=== PATIENT | female | born 1950 | race Caucasian/White ===

== ENCOUNTER 2025-03-12 08:56 | Emergency (ER) | payer MEDICARE, OTHER, SELFPAY ==
--- OUTSIDE RECORDS SUMMARY | 2025-03-05 23:59 | XMS_ITS | Continuity of Care Document ---
Author Organization [facility] Address [facility] [address] [place] [address]- Care Team Providers Care School Bus Driver/Custodian Name Role Phone Leonidas Teague Primary Care Physician [phone] Encounter 03/03/25 - 03/05/25 [facility] [address] [facility], [place] [place] [address]- Encounter Diagnosis Cellulitis of left leg(Discharge Diagnosis) - 03/03/25 Attending Physician: Leonidas Teague Encounter Type: Outpatient Allergies, Adverse Reactions, Alerts No Known Allergies Assessment and Plan Extracted from: Title:cellulitis of left lower leg Author:Leonidas Charles Date:03/03/25 1. Cellulitis of left leg (L03.116: Cellulitis of left lower limb) Pt will receive IM rocephin in office today again and this is well tolerated. She will continue her courses of bactrim and doxycycline as prescribed and is encouraged to continue with hydration efforts. S/S of increasing infection are reviewed, otherwise pt may follow up as needed. Ordered: cefTRIAXone, 1 g, Intramuscular, once, (Ordered) 00999 office o/p est low meets or exceeds 20min (Charge), Quantity: 1, Cellulitis of left leg Medications Bactrim DS 800 mg-160 mg oral tablet 1 tab(s) trimethoprim, Oral, bid, x 7 day(s), # 14 tab(s), 0 Refill(s), Type: Acute, [facility], 1 tab(s) Oral bid,x7 day(s), 64, in, 02/28/25 8:57:00 CDT, Height Measured, 140, lb, 02/28/25 8:57:00 CDT, Weight Measured Start Date: 02/28/25 Stop Date: 03/07/25 Status: Ordered Quantity: 14.0 Unit: tab(s) Repeat number: 1 Indications: Cellulitis of left lower limb; doxycycline ( 100 mg ), Oral, bid, 0 Refill(s), Type: Maintenance Start Date: 02/28/25 Status: Ordered Repeat number: 1 Multi Vitamin+ 0 Refill(s), Type: Maintenance Start Date: 02/28/25 Status: Ordered Repeat number: 1 mupirocin 2% topical cream Topical, tid, 0 Refill(s), Type: Maintenance Start Date: 02/28/25 Status: Ordered Repeat number: 1 Ozempic Subcutaneous, 0 Refill(s), Type: Maintenance Start Date: 02/28/25 Status: Ordered Repeat number: 1 Vitamin D3 daily, 0 Refill(s), Type: Maintenance Start Date: 02/28/25 Status: Ordered Repeat number: 1 Problem List Condition Confirmation Course Effective Dates Status Health St atus Informant Skin melanoma Confirmed Active Diagnosis Diagnosis Type Effective Dates Health Status Clinical Service Informant Cellulitis of left leg Discharge Diagnosis 03/03/25 Non-Specified Procedures Procedure Date Related Diagnosis Body Site Status Parathyroid 2012 Completed Jaw 1989 Completed Tubal ligation 1981 Completed Social History Social History Type Response Sex Female Sex Representation Female (finding) Physician Outpatient Note * Leonidas Teague: PERFORM Event Display: General Clinic Note (Physician) Authored Date: [id number] Linh Johnson Address: [address] [place] [address] Home Phone:[phone] Sex:Female :1950 Location:[facility] Date of Service:03/03/2025 Chief Complaint F/U, STILL C/O LEFT LEG AND FOOT PAIN, SWELLING IS BETTER History of Present Illness Pt returns to??clinic for further evaluation of cellulitis of her left lower leg. She was originally seen in another facility and started on a course??of doxycycline??however came her on??February 28??for a second opinion as her leg was swelling and very painful still.??She was advised on that visit??to continue her Doxycycline and Bactrim was added along with?? a dose of IM rocephin. Today she reports her leg is no longer swollne and has returned to its normal skin tone, however she does still have some soreness in her left ankle and just wants to be seen prior to the weekend to make sure she ishealing well. no fevers or other symptoms at this time.?? Review of Systems Constitutional:??no??fever,??no??chills,??no??sweats,??no??weakness Respiratory:??no??shortness of breath,??no??cough Cardiovascular:??no??chest pain Additional ROS info: Except as noted in the above Review of Systems and in the History of Present Illness all other systems have been reviewed and are negative or noncontributory.?? Physical Exam Vitals & Measurements T:??97.7??(Tympanic)?? HR:??83??(Peripheral)?? BP:??126/68?? SpO2:??98%?? HT:??64??in?? WT:??137??lb?? BMI:??23.51?? General:??alert,??no acute distress. Cardiovascular:??regular??rate and rhythm,??normal??peripheral perfusion. Respiratory: Lungs??CTA, respirations??non-labored. Extremities:??no??deformity,??no??trauma. Abrasion on left mckinley is healing well with no swelling and drainage. lower leg has no swelling??, no particular warmth and no TTP at this time.?? Neurological:??oriented??x4, LOC??appropriate for age Assessment/Plan 1.??Cellulitis of left leg (L03.116: Cellulitis of left lower limb) Pt will??receive IM??rocephin in office today again and this is well tolerated. She will continue her courses of bactrim and doxycycline as prescribed and is encouraged to continue with hydration??efforts. S/S??of increasing infection are reviewed, otherwise pt may follow up as needed.?? Ordered: cefTRIAXone, 1 g, Intramuscular, once, (Ordered) 51179 office o/p est low meets or exceeds 20min (Charge), Quantity: 1, Cellulitis of left leg ?? PCP/Referring Provider Primary Care Provider (PCP):?Leonidas Teague ?NPI# [id number] Referring Provider:?No referring provider recorded for selected visit. Problem List/Past Medical History Ongoing Skin melanoma Medications cholecalciferol(Vitamin D3), daily doxycycline, 100 mg, Oral, bid multivitamin(Multi Vitamin+) mupirocin topical(mupirocin 2% topical cream), Topical, tid semaglutide(Ozempic), Subcutaneous sulfamethoxazole-trimethoprim(Bactrim DS 800 mg-160 mg oral tablet), 1 tab(s), Oral, bid Allergies No known allergies Social History Alcohol - Current Tobacco - Denies Tobacco Use Family History Alcohol user: Sister. Cancer..: Mother and Grandmother (M). Osteoporosis: Mother and Grandmother (M). Stroke: Mother. Thyroid disease: Mother. Health Status Family Member(s) Electronically Signed on 03/03/25 10:45 AM Leonidas Teague Patient Care team information Care Team Personnel Name: Leonidas Teague Position: EMR Mid-Level Access (Supervised) Member Role: Primary Care Physician Address: [facility] [place] [address] P: [place]: [place] [address]- [place] [employer]: Family History Name: UnknownRelationship: Mother Condition State Severity Life Cycle Status Age at Onset Cancer.. POSITIVE Osteoporosis POSITIVE Stroke POSITIVE Thyroid disease POSITIVE Name: UnknownRelationship: Sister Condition State Severity Life Cycle Status Age at Onset Alcohol user POSITIVE Name: UnknownRelationship: Grandmother (M) Condition State Severity Life Cycle Status Age at Onset Cancer.. POSITIVE Osteoporosis POSITIVE Insurance Providers Guarantor name: MIL[employer] Health Plan Information #: 1 Payer: [facility] - Insurance Organization Payer Identifier: MILTON Member Number: [id number] Group Number: MILTON Subscriber Identifier: [id number] Relationship to Subscriber: Self Coverage Type: Medicare Coverage Verification Date: NA Telecom: NA Address: NA Health [facility] [address] Information #: 2 Payer: [facility] Retty Payer Identifier: NA Member Number: [id number] Group Number: [id number] Subscriber Identifier: [id number] Relationship to Subscriber: Self Coverage Type: Private Health Insurance Coverage Verification Date: NA Telecom: NA Address: [facility] [address] Information #: 3 Payer: [facility] Ret[employer] Payer Identifier: MILTON Member Number: [id number] Group Number: MILTON Subscriber Identifier: [id number] Relationship to Subscriber: Self Coverage Type: Medicare Coverage Verification Date: NA Telecom: NA Address:
--- OUTSIDE RECORDS SUMMARY | 2025-03-12 09:09 | XMS_ITS | Encounter Summary ---
Author Organization [facility] Address [address] [place]: Epic Prelude [place] [address] Care Team Providers Care Software Engineer Backend Name Role Phone Kev Begum MD Primary Care Provider [phone] Encounter Details Date Type Department Care Team (Late st Contact Info) Description 02/22/2008 Outpatient Historical Johanne French, ANP NO ADDRESS ON FILE Screening for Malignant Neoplasm of the Cervix Social History Tobacco Use Types Packs/Day Years Used Date Smoking Tobacco: Never Alcohol Use Standard Drinks/Week Comments Yes 0.8 (1 standard drink = 0.6 oz p ure alcohol) Comments No Sex and Gender Information Value Date Recorded Sex Assigned at Not on file Legal Sex Female 5: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 Fosamax therapy. Evaluation of bone mineral density. The following absorptiometry data were obtained. The overall technical quality of the study is good. Serial measurement number 4. 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 She hasapproximately 16% less mineral than the mean projected for a young normal, ages 20-40. Shedemonstrates mild osteopenia of the total hip region and normal bone mineral density of the neckregion of the left hip. Impression: Since the previous examination 05/02/2004, bone mineral density appears to have mildly improved in thelumbar spine and left hip. - Dictated By: Santosh Collier M.D. Electronically Signed By: Santosh Collier M.D. Date Signed: 08/30/06 [facility] Procedure Note Provider, Historical - 07/20/2009 DEXA Evaluation of the Lumbar Spine and Left Proximal Femur: Reason for Consultation: Osteopenia. Fosamax therapy. Evaluation of bone mineral density. The following absorptiometry data were obtained. The overall technicalquality of the study is good. Serial measurement number 4. L2 through L4BMD (g/cm2): 1.003Young adult %: 84Adult T-score: -1.6Left Femoral NeckBMD (g/cm2): 0.926Young adult %: 95Adult T-score: -0.4Left Total HipBMD (g/cm2): 0.854Young adult %: 85Adult T-score: -1.2The patient demonstrates moderate osteopenia of the trabecular bone ofher lumbar spine. She hasapproximately 16% less mineral than the mean projected for a youngnormal, ages 20-40. Shedemonstrates mild osteopenia of the total hip region and normal bonemineral density of the neckregion of the left hip. Impression: Since the previous examination 05/02/2004, bone mineral density appears tohave mildly improved in thelumbar spine and left hip. - Dictated By: Santosh Collier M.D. Electronically Signed By: Santosh Collier M.D. Date Signed: 08/30/06 [facility] Kev Begum MD NM ORDERABLES Final Result INTERFACE SYSTEM Refer to clinic/hospital department * PATHOLOGY (02/22/2008 6:53 AM CDT) PATHOLOGY/CY TOLOGY REPORT [facility] [address] [facility] [address] Patient: Castro JOHNSON Accn No: [id number] Collected: 02/22/2008 6:53:00 AM CYTOLOGY SHOE FITTER FINAL REPORT - - WARP TESTER PAP History Specimen Source: None Provided LMP: None Provided Last Pap Date: None Provided Specimen Adequacy No endocervical cells identified. The presence or absence of an endocervical component is indeterminate in this specimen secondary to atrophy causing difficulty in distinguishing parabasilar type cells from squamous metaplastic cells. Diagnosis NEGATIVE FOR INTRAEPITHELIAL LESION OR MALIGNANCY. (Previously noted as Within Normal Limits) Research Scholar KENNETH 02/24/08 Completed by: TERESITA CHRISTY BSCT(ASCP) (Electronically signed by) 02/24/08 Additional Diagnosis Atrophic Smear Comment Routine follow-up is suggested. Important Info About Pap Smears HPV Testing off the Thin Prep vial can be done as a means of further evaluating a Thin Prep Report. For information about ordering the HPV test, phone Cytology at . Treatment or follow-up recommendations (if any) that are considered within this report are based upon general recommendations as contained in 2001 Consensus Guidelines For Cervical Cytological Abnormalities MICAELA: December 23, 2001, and are provided as a general guideline rather than as a specific recommendation. Final decisions about the most appropriate treatment and follow-up should be made on an individualized basis by the treating physician in consultation with his/her patient. INTERFACE SYSTEM 02/22/2008 6:53 AM CDT Johanne French ANP PATHOLOGY/CYTOLOGY ORDERABLES Final Result INTERFACE SYSTEM Refer to clinic/hospital department documented in this encounter Visit Diagnoses Diagnosis Screening for malignant neoplasm of the cervix documented in this encounter Care Teams Software Engineer Backend Relationship Specialty Start Date End Date Kev Begum MD [address] [facility] [address] [place] [id number] PCP - General 08/30/02 documented as of this encounter
--- OUTSIDE RECORDS SUMMARY | 2025-03-12 09:09 | XMS_ITS | Encounter Summary ---
Author Organization [facility] Address [address] [place] [address] Care Team Providers Care Hydrogenation Operator Name Role Phone Kev Begum MD Primary Care Provider [phone] Encounter Details Date Type Department Care Team (Late st Contact Info) Description 02/21/2008 Emergency [facility] Emergency Department [address] [place] [address] Ed, Physician NO ADDRESS ON FILE Social History Tobacco Use Types Packs/Day Years Used Date Smoking Tobacco: Never Alcohol Use Standard Drinks/Week Comments Yes 0.8 (1 standard drink = 0.6 oz p ure alcohol) Comments No Sex and Gender Information Value Date Recorded Sex Assigned at Not on file Legal Sex Female 5: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
--- OUTSIDE RECORDS SUMMARY | 2025-03-12 09:09 | XMS_ITS | Encounter Summary ---
Author Organization [facility] Address [address] [place] [address] Care Team Providers Care Truck Repair Supervisor Name Role Phone Kev Begum MD Primary Care Provider [phone] Encounter Details Date Type Department Care Team (Late st Contact Info) Description 05/02/2004 Outpatient Historical [facility] Beckwith Keegan [address] [place] [address] Kev Begum MD [address] [place] [address] JOINT PAIN-L/LEG (Primary Dx) Social History Tobacco Use Types Packs/Day Years Used Date Smoking Tobacco: Never Assessed Comments Unknown Sex and Gender Information Value Date Recorded Sex Assigned at Not on file Legal Sex Female 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
--- OUTSIDE RECORDS SUMMARY | 2025-03-12 09:09 | XMS_ITS | Clinical Summary ---
Author Organization [facility] Kelvin cespedes Ogle Address [address] [place] [address] Phone Care Team Providers Care Apprentice Jockey Name Role Phone Kev Begum MD Primary Care Provider [phone] Allergies No known active allergies Medications esomeprazole (NexIUM) 40 mg Capsule, Delayed Release(E.C.) Take 1 Capsule (40 mg) by mouth daily before breakfast. 30 Capsule 01/10/20 17 Active multivitamin (DAILY-JAN) tablet Take 1 Tablet by mouth daily. Active SUMAtriptan (IMITREX) 50 mg tablet TAKE 1 TABLET (50 MG) BY MOUTH EVERY 2 HOURS NEEDED FOR HEADACHES MAY REPEAT IN 2 HOURS; MAX DOSE 200MG IN 24 HOURS. 12 Tablet 3 04/15/20 19 Active ondansetron (ZOFRAN) 4 mg Tablet Take 1 Tablet (4 mg) by mouth every 8 hours as needed for Nausea/Emesis. 20 Tablet 08/06/2019 5:40 PM CAREER REPRESENTATIVE 08/06/20 19 Active OTHER Estriol 0.1% Apply 1/2 ml to 1 ml to vagina 3 times weekly 30 mL 5 08/18/20 20 Active OTHER Testosterone cream 1mg 3 times weekly. 30 mL 5 08/18/20 20 Active Vitamin D2 1,250 mcg (50,000 unit) capsule TAKE 1 CAPSULE (50,000 UNITS) BY MOUTH EVERY 30 DAYS. 6 Capsule 12/16/19 21 Active dextroamphetamine -amphetamine (ADDERALL) 20 mg tabletIndications :Attention deficit hyperactivity disorder (ADHD), unspecified ADHD type TAKE ONE TABLET BY MOUTH 2 TIMES DAILY MAX DAILY AMOUNT 40 MG 60 Tablet 01/20/20 21 Active Active Problems Problem Noted Date Diagnosed Date Family history of breast cancer 08/31/2020 Hyperparathyroidism, unspecified 01/21/2020 Osteopenia of multiple sites 04/22/2019 History of migraine 04/22/2019 History of vertebral compression fracture 2018 History of primary hyperparathyroidism 9 S/P parathyroidectomy 04/22/2019 Abnormal finding on GI tract imaging 09/03/2018 Overview (09/03/2018): Mass vs adherent stool in cecum. Personal history of DVT (deep vein thrombosis) 0 04/18/2017 Closed compression fracture of first lumbar vert ebra 01/09/2017 ADHD (attention deficit hyperactivity disorder) 01/21/2014 Carpal tunnel syndrome 08/19/2008 Migraine with aura, without mention of intractable migraine without mention of status migrainosus Personal history of malignant melanoma of skin Resolved Problems Problem Noted Date Diagnosed Date Resolved Date Medication monitoring encounter 01/28/2017 02/06/2017 Acute deep vein thrombosis ( DVT) of distal vein of left lower extremity 01/09/2017 04/21/2018 Colon cancer screening 05/16/201404/15 Macrocytosis 09/12/2008 09/12/2008 Cellulitis 02/22/2008 09/12/2008 Other specified diseases of blood and blood-forming organs(289.89) 09/12/2008 Peptic ulcer, unspecified si te, unspecified as acute or chronic, without mention of hemorrhage, perforation, or obstruction 04/21/2018 Osteoporosis, unspecified Immunizations Immunization Administration Dates Next Due (ADACEL/BOOSTRIX)(10 YR UP) TDAP VACCINE, 0.5ML, IM 03/13/2013 (PNEUMOVAX 23)(50 YRS UP) PN EUMOCOCCAL POLYSACCHARIDE (PPV23) 0.5 ML, IM 04/08/2014 (PREVNAR 13)(6 WKS UP) PNEUM OCOCCAL CONJUGATE (PCV13) 0.5 ML, IM 04/11/2015 (TDVAX)(7 YRS UP) TETANUS AN D DIPHTHERIA TOXOIDS, ADSORBED (2 LF OF TETANUS TOXOID AND 2 LF OF DIPHTHERIA TOXOID), 0.5ML (PF), IM 03/13/2013,08/04/2003 Influenza Seasonal Unspecified Formulation IM Influenza Vaccine Split 3+ Yrs PF IM 09/14/2009 Zoster Vaccine Live SQ 03/25/2015 Family History Medical History Relation Name Comments Hypertension Brother Healthy Daughter Cancer Father Lung Cancer Father Healthy Mother Other Mother hyperparathyroi dism Breast Cancer Paternal Aunt Breast Cancer Paternal Cousin positive re sponse to counselor- see media tab Liver Disease Sister 1 Other Sister 1 alcoholism Other Sister 2 Healthy Son Colon Cancer Neg Hx Ovarian Cancer Neg Hx Relation Name Status Comments Brother Alive Daughter Alive Father Mother Alive Paternal Aunt Paternal Cousin Sister 1 Sister 2 Son Alive Social History Tobacco Use Types Packs/Day Years Used Date Smoking Tobacco: Never Smokeless Tobacco: Never Tobacco Cessation:Counseling Given: Yes Alcohol Use Standard Drinks/Week Comments Yes 4.2 (1 standard drink = 0.6 oz p ure alcohol) Comments No Sex and Gender Information Value Date Recorded Sex Assigned at Not on file Legal Sex Female 5:07 AM CAREER REPRESENTATIVE Gender Identity Not on file Sexual Orientation Not on file Occupation Industry Job Start Date Job End Date Not on file Not on file Not on file Not on file Not on file Not on file Not on file Not on file Last Filed Vital Signs Vital Sign Reading Time Taken Comments Blood Pressure 118/70 08/18/2020 9:23 AM CAREER REPRESENTATIVE Pulse 82 07/25/2020 12:39 PM CAREER REPRESENTATIVE Temperature 36.6 C (97.9 F) 10/02/2019 1:58 PM CAREER REPRESENTATIVE Respiratory Rate 22 04/25/2020 1:05 PM CDT Oxygen Saturation 99% 10/02/2019 1:58 PM CAREER REPRESENTATIVE Inhaled Oxygen Concentration - - Weight 71.2 kg (157 lb) 08/18/2020 9:23 AM CAREER REPRESENTATIVE Height 167.6 cm (5' 6 ) 08/18/2020 9:23 AM CAREER REPRESENTATIVE Body Mass Index 25.34 08/18/2020 9:23 AM CAREER REPRESENTATIVE Plan of Treatment Health Maintenance Due Date Last Done Comments FIT/ DNA Q 3 YEARS (AUTO ORDER) 1967 FIT-DNA Q 3 years 1994 FLEX SIG/CT COLONOGRAPHY Q 5 YEARS (AUTO ORDER) 03/12/2004 03/12/1999 Flex Sig/CT Colonography Q 5 years 03/12/20041998 FIT/FOBT Q 1 YEAR (AUTO ORDER) 04/26/2004 0 04/26/2003, 03/30/2002, 03/24/2001 FIT/FOBT Q 1 year 04/26/2004 04/26/2003, , 03/24/2001 ZOSTER VACCINE (2 of 3) 05/20/2015 03/25/2015 Traditional Medicare (ACO) A nnual Wellness Visit 04/26/2021 04/25/2020, 04/22/2019, 04/18/2017, Additional history exists DTAP/TDAP/TD VACCINES (2 - T d or Tdap) 03/13/2023 03/13/2013, 03/13/2013, 08/04/2003 RSV VACCINE (60+ or ) (1 - 1-dose 75+ series) 2024 INFLUENZA VACCINE (#1) 2025 9, 11/16/2018, 09/14/2009 OSTEOPOROSIS SCREENING 06/28/2025 0, 06/28/2020, 06/02/2018, Additional history exists COLORECTAL CANCER SCREENING (AUTO ORDER) 01/25/2035 01/25/2025, 09/03/2018, 09/03/2018, Additional history exists COLORECTAL SCREENING 01/25/2035 01/25/2025, 09/03/2018, 09/03/2018, Additional history exists Colorectal Cancer Screening (AUTO ORDER) 01/25/2035 Colorectal Cancer Screening 01/25/2035 PNEUMOCOCCAL VACCINE 50+ YEARS Completed 04/11/2015 , 04/08/2014 Procedures Procedure Name Priority Date/Time Associated Diagnosis Comments XR DEXA BONE DENSITY AXIAL 1 OR MORE SITES Routine 06/28/2020 10:52 AM CDT Hyperparathyroidism, unspecified Hypovitaminosis D Exhaustion Localized osteoporosis without current pathological fracture COLONOSCOPY REPORT 09/03/2018 9: 56 AM CAREER REPRESENTATIVE from Last 3 Months or Most Recently Relevant to Health Maintenance Results * XR DEXA BONE DENSITY AXIAL 1 OR MORE SITES (06/28/2020 10:52 AM CDT) Anatomical Region Laterality Modality Nuclear Medicine 06/28/2020 10:5 2 AM CDT Impressions 06/28/2020 7:58 PM CDT IMPRESSION: 1. Compared to previous exam, there has not been statistically significant change in bone mineral density with findings consistent with moderate osteopenia; there is currently moderate risk for fracture with site of lowest density at the total hip. 2. Age matched Z-score of greater than -2.0 does not indicate accelerated bone demineralization. Definitions: T-score > -0.99 = Normal T-score -1.00 to -1.49 = mild osteopenia T-score -1.50 to -1.99 = moderate osteopenia T-score -2.00 to -2.49 = severe osteopenia T-score < -2.50 = osteoporosis N.B. Changes in density of <=0.05 g/cm2 are not statistically significant. RECOMMENDATIONS: Normal: Low risk for fracture - f/u in 2 years Mild/Mod osteopenia: Moderate risk for fracture - f/u in 1 year Severe osteopenia: Moderate/high risk for fracture - f/u in 1 year Osteoporosis: High risk for fracture - f/u in 1 year NOF guidelines recommend consideration of FDA-approved medical therapies in patients with FRAX determined 10-year probabilities of hip/major osteoporosis-related fractures equal or greater than 3%/20% respectively. Consider assessing fracture risk using the FRAX analysis tool for guidance of clinical management available online at www.shef.ac.uk/FRAX/. Enter TripOvation for Select DXA and the Femoral Neck BMD value. Narrative 06/28/2020 7:58 PM CDT Exam: XR DEXA BONE DENSITY AXIAL 1 OR MORE SITES Reason For Exam: See Diagnosis, osteoporosis screening. Diagnosis: Hyperparathyroidism, unspecified; Hypovitaminosis D; Exhaustion; Localized osteoporosis without current pathological fracture Findings: The following absorptiometry data were obtained. The quality of this examination is acceptable with regards to count density, processed images, data display and lack of important artifacts (including but not limited to motion and attenuation artifacts). COMPARISON: 06/02/2018 L1-L4 BMD (g/cm2): 1.090 (Previously 1.030) Adult T-score: -0.7 (Previously -1.3) Adult Z-score: Normal (Previously Normal) Left Femoral Neck BMD (g/cm2): 0.871 (Previously 0.810) Adult T-score: -0.9 (Previously -1.4) Adult Z-score: Normal (Previously Normal) Left Total Hip BMD (g/cm2): 0.789 (Previously 0.764) Adult T-score: -1.8 (Previously -2.0) Adult Z-score: Normal (Previously Normal) Procedure Note Steve Villanueva MD - 06/28/2020 Exam: XR DEXA BONE DENSITY AXIAL 1 OR MORE SITES Reason For Exam: See Diagnosis, osteoporosis screening. Diagnosis: Hyperparathyroidism, unspecified; Hypovitaminosis D; Exhaustion; Localized osteoporosis without current pathological fracture Findings: The following absorptiometry data were obtained. The quality of this examination is acceptable with regards to count density, processed images, data display and lack of important artifacts (including but not limited to motion and attenuation artifacts). COMPARISON: 06/02/2018 L1-L4 BMD (g/cm2): 1.090 (Previously 1.030) Adult T-score: -0.7 (Previously -1.3) Adult Z-score: Normal (Previously Normal) Left Femoral Neck BMD (g/cm2): 0.871 (Previously 0.810) Adult T-score: -0.9 (Previously -1.4) Adult Z-score: Normal (Previously Normal) Left Total Hip BMD (g/cm2): 0.789 (Previously 0.764) Adult T-score: -1.8 (Previously -2.0) Adult Z-score: Normal (Previously Normal) IMPRESSION: 1. Compared to previous exam, there has not been statistically significant change in bone mineral density with findings consistent with moderate osteopenia; there is currently moderate risk for fracture with site of lowest density at the total hip. 2. Age matched Z-score of greater than -2.0 does not indicate accelerated bone demineralization. Definitions: T-score > -0.99 = Normal T-score -1.00 to -1.49 = mild osteopenia T-score -1.50 to -1.99 = moderate osteopenia T-score -2.00 to -2.49 = severe osteopenia T-score < -2.50 = osteoporosis N.B. Changes in density of <=0.05 g/cm2 are not statistically significant. RECOMMENDATIONS: Normal: Low risk for fracture - f/u in 2 years Mild/Mod osteopenia: Moderate risk for fracture - f/u in 1 year Severe osteopenia: Moderate/high risk for fracture - f/u in 1 year Osteoporosis: High risk for fracture - f/u in 1 year NOF guidelines recommend consideration of FDA-approved medical therapies in patients with FRAX determined 10-year probabilities of hip/major osteoporosis-related fractures equal or greater than 3%/20% respectively. Consider assessing fracture risk using the FRAX analysis tool for guidance of clinical management available online at www.shef.ac.uk/FRAX/. Enter TripOvation for Select DXA and the Femoral Neck BMD value. Linda Osborne MD DIAGNOSTIC IMAGING ORDERABLES Fi nal Result * COLONOSCOPY REPORT (09/03/2018 9:56 AM CAREER REPRESENTATIVE) Narrative Procedure Note Brant Durán MD - 09/03/2018 9:55 AM CST [facility] Patient Name: Rody Johnson Procedure Date: 09/03/2018 Date of : 1950 Admit Type: Outpatient Age: 68 Attending MD: Brant Durán , Procedure: Colonoscopy Indications: Abnormal CT of the GI tract Providers: Brant Durán Referring MD: Kev Begum MD Medicines: Midazolam 7 mg IV Complications: No immediate complications. Procedure: After I obtained informed consent, the scope was passed under direct vision. Throughout the procedure, the patient's blood pressure, pulse, and oxygen saturations were monitored continuously. The Colonoscope was introduced through the anus and advanced to the cecum, identified by appendiceal orifice and ileocecal valve. Theterminal ileum could not be entered. The colonoscopy was performed without difficulty. The patient tolerated the procedure well. The quality of the bowel preparation was good. Estimated Blood Loss: Estimated blood loss: none. Findings: Internal hemorrhoids were found during retroflexion. The hemorrhoids were medium-sized. A diffuse area of moderate melanosis was found in the entire colon. The exam was otherwise without abnormality. Impression: - Internal hemorrhoids. - Melanosis in the colon. - The examination was otherwise normal. - No specimens collected. Recommendation: - Repeat colonoscopy is not recommended due to current age (66 years or older) for screening purposes. Brant Durán, 09/03/2018 9:55:27 AM Number of Addenda: 0 Note Initiated On: 09/03/2018 9:24 AM Scope Withdrawal Time 0 hours 7 minutes 3 seconds Scope In: 9:33:22 AM Scope Out: 9:52:44 AM [id number] [place] [address] Brant Durán MD GI PROCEDURE ORDERABLES Edited Result - Final from Last 3 Months or Most Recently Relevant to Health Maintenance Insurance MEDICARE PART A AND B [employer] [place] [employer] (INTERNAL) [facility] [employer] Medicare Part D MEDICARE PART A AND B [employer] [place] Advance Directives For more information, please contact: [phone] Documents on File Type Date Recorded Patient Evidence Technician Expl anation Advance Directive POA 04/25/2020 1:00 PM A dvance Directive POA * Full Code (Latest Code Status on File) Date Activated Date Inactivated Comments 09/03/2018 8:02 AM 09/03/2018 12:21 PM * Full Code Date Activated Date Inactivated Comments 05/16/2014 9:34 AM 05/16/2014 12:03 PM * Full Code Date Activated Date Inactivated Comments 05/16/2014 8:35 AM 05/16/2014 9:34 AM Care Teams Apprentice Jockey Relationship Specialty Start Date End Date Kev Begum MD [address] [address] PCP - General 08/30/02
--- OUTSIDE RECORDS SUMMARY | 2025-03-12 09:09 | XMS_ITS | Encounter Summary ---
Author Organization [facility] Address [address] [place] [address] Care Team Providers Care Supervisor Blast Furnace Name Role Phone Kev Begum MD Primary Care Provider [phone] Encounter Details Date Type Department Care Team (Latest Contact Info) Description 05/02/2004 Outpatient Historical [facility] Kelvin Beckwith [place] [address] [place] [phone] Nik Serna MD NO ADDRESS ON FILE SCREENING MAMM-MAILG NEOPL-OTHER (Primary Dx) Social History Tobacco Use Types Packs/Day Years Used Date Smoking Tobacco: Never Assessed Comments Unknown Sex and Gender Information Value Date Recorded Sex Assigned at Not on file Legal Sex Female 5:07 AM FURNACE CHARGER Gender Identity Not on file Sexual Orientation Not on file documented as of this encounter Plan of Treatment Not on file documented as of this encounter Visit Diagnoses Diagnosis Other screening mammogram- Primary documented in this encounter Care Teams Supervisor Blast Furnace Relationship Specialty Start Date End Date Kev Begum MD [address] [id number] PCP - General 08/30/02 documented as of this encounter
--- OUTSIDE RECORDS SUMMARY | 2025-03-12 09:09 | XMS_ITS | Encounter Summary ---
Author Organization [facility] Address [address] [place] [address] Care Team Providers Care Controller Instructor Name Role Phone Kev Begum MD Primary Care Provider [phone] Encounter Details Date Type Department Care Team (Late st Contact Info) Description 05/02/2004 Outpatient [facility] Beckwith [place] [address] [place] [address] Kev Begum MD [address] [place] [address] OTHER OVARIAN FAILURE (Primary Dx) Social History Tobacco Use Types Packs/Day Years Used Date Smoking Tobacco: Never Assessed Comments Unknown Sex and Gender Information Value Date Recorded Sex Assigned at Not on file Legal Sex Female 5:07 AM RUBBER GOODS TESTER WATER Gender Identity Not on file Sexual Orientation Not on file documented as of this encounter Plan of Treatment Not on file documented as of this encounter Visit Diagnoses Diagnosis Other ovarian failure(256.39)- Primary Other ovarian failure documented in this encounter Care Teams Controller Instructor Relationship Specialty Start Date End Date Kev Begum MD [address] [place] [address] PCP - General 08/30/02 documented as of this encounter
--- OUTSIDE RECORDS SUMMARY | 2025-03-12 09:09 | XMS_ITS | Encounter Summary ---
Author Organization [facility] Address [address] [place] [address] Care Team Providers Care Irrigation Installation Specialist Name Role Phone Kev Begum MD Primary Care Provider [phone] Encounter Details Date Type Department Care Team (Latest Contact Info) Description 08/04/2003 Outpatient Historical [facility] [place] [address] [place] [address] Cash Blair, [address] [place] [address] OPEN WOUND SITE NOS-COMPL (Primary Dx); DOG BITE Social History Tobacco Use Types Packs/Day Years Used Date Smoking Tobacco: Never Assessed Comments Unknown Sex and Gender Information Value Date Recorded Sex Assigned at Not on file Legal Sex Female 5:07 AM MANAGER FRONT Gender Identity Not on file Sexual Orientation Not on file documented as of this encounter Plan of Treatment Not on file documented as of this encounter Visit Diagnoses Diagnosis Open wound(s) (multiple) of unspecified site(s), complicated- Primary Dog bite(E906.0) Dog bite documented in this encounter Care Teams Irrigation Installation Specialist Relationship Specialty Start Date End Date Kev Begum MD [address] [place] [address] PCP - General 08/30/02 documented as of this encounter
--- OUTSIDE RECORDS SUMMARY | 2025-03-12 09:09 | XMS_ITS | Encounter Summary ---
Author Organization [facility] Address [address] [place] [address] Care Team Providers Care Database Marketing Analyst Name Role Phone Kev Begum MD Primary Care Provider [phone] Encounter Details Date Type Department Care Team (Late st Contact Info) Description 08/13/2008 Ancillary Orders [facility] Kelvin Beckwith [place] [address] [place] [address] Kev Begum MD [address] [phone] Other Screening Mammogram Social History Tobacco Use Types Packs/Day Years Used Date Smoking Tobacco: Never Alcohol Use Standard Drinks/Week Comments Yes 0.8 (1 standard drink = 0.6 oz p ure alcohol) Comments No Sex and Gender Information Value Date Recorded Sex Assigned at Not on file Legal Sex Female 5:07 AM TRANSPORT COORDINATOR Gender Identity Not on file Sexual Orientation Not on file documented as of this encounter Plan of Treatment Not on file documented as of this encounter Results * MAMMO SCREENING BILAT (09/12/2008 10:24 AM TRANSPORT COORDINATOR) Anatomical Region Laterality Modality Breast Bilateral Mammography Narrative 09/13/2008 9:53 AM TRANSPORT COORDINATOR Bilateral Mammogram Reason for Exam: Screening Comparison: Comparison is made with the prior exam(s) dated 08.29.05 Findings: Bilateral CC and MLO views were obtained. This examination was reviewed with the aid of a computer-aided detection system(CAD). The breast tissue density is average. No significant new findings since the prior mammogram(s). Procedure Note Eric Sherman MD - 09/13/2008 Bilateral Mammogram Reason for Exam: Screening Comparison: Comparison is made with the prior exam(s) dated 08.29.05 Findings: Bilateral CC and MLO views were obtained. This examination was reviewed with the aid of a computer-aided detectionsystem(CAD). The breast tissue density is average. No significant new findings since the prior mammogram(s). Kev Begum MD MAMMO ORDERABLES Final Result documented in this encounter Visit Diagnoses Diagnosis Other screening mammogram Other screening mammogram documented in this encounter Care Teams Database Marketing Analyst Relationship Specialty Start Date End Date Kev Begum MD [address] [facility] [address] [place] [address] PCP - General 08/30/02 documented as of this encounter
--- OUTSIDE RECORDS SUMMARY | 2025-03-12 09:09 | XMS_ITS | Encounter Summary ---
Author Organization [facility] Address [address] [place] [address] Care Team Providers Care Head Of Research & Insights Name Role Phone Kev Begum MD Primary Care Provider [phone] Encounter Details Date Type Department Care Team (Late st Contact Info) Description 05/02/2004 Outpatient [facility] [place] [address] [place] [address] Kev Begum MD [address] [place] [address] RAYNAUD'S SYNDROME (Primary Dx); ABNORMAL LIVER FUNCTION STUDY; OTHER GENERAL SYMPTOMS; OSTEOPOROSIS NOS Social History Tobacco Use Types Packs/Day Years Used Date Smoking Tobacco: Never Assessed Comments Unknown Sex and Gender Information Value Date Recorded Sex Assigned at Not on file Legal Sex Female 5:07 AM METEOROLOGY TEACHER Gender Identity Not on file Sexual Orientation Not on file documented as of this encounter Plan of Treatment Not on file documented as of this encounter Visit Diagnoses Diagnosis Raynaud's syndrome- Primary Nonspecific abnormal results of liver function study Other general symptoms(780.99) Other general symptoms Osteoporosis, unspecified documented in this encounter Care Teams Head Of Research & Insights Relationship Specialty Start Date End Date Kev Begum MD [address] [place] [address] PCP - General 08/30/02 documented as of this encounter
--- OUTSIDE RECORDS SUMMARY | 2025-03-12 09:09 | XMS_ITS | Encounter Summary ---
Author Organization [facility] Address [address] [place] [address] Care Team Providers Care Cake Decorator Name Role Phone Kev Begum MD Primary Care Provider [phone] Encounter Details Date Type Department Care Team (Late st Contact Info) Description 05/02/2004 Outpatient [facility] [address] [place] [address] Kev Begum MD [address] [place] [phone] Social History Tobacco Use Types Packs/Day Years Used Date Smoking Tobacco: Never Assessed Comments Unknown Sex and Gender Information Value Date Recorded Sex Assigned at Not on file Legal Sex Female 5:07 AM FIELD SALES 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
--- OUTSIDE RECORDS SUMMARY | 2025-03-12 09:09 | XMS_ITS | Encounter Summary ---
Author Organization [facility] Address [address] [place] [address] Care Team Providers Care Information Management Officer Name Role Phone Kev Begum MD Primary Care Provider Encounter Details Date Type Department Care Team (Late st Contact Info) Description 05/02/2004 Outpatient Historical [facility] Kelvin Beckwith Keegan [address] [place] [address] Kev Begum MD [address] [place] [address] SCREENING MAMM-MALIG NEOPL-HI RISK (Primary Dx) Social History Tobacco Use Types Packs/Day Years Used Date Smoking Tobacco: Never Assessed Comments Unknown Sex and Gender Information Value Date Recorded Sex Assigned at Not on file Legal Sex Female 5:07 AM PEOPLESOFT FSCM DEVELOPER Gender Identity Not on file Sexual Orientation Not on file documented as of this encounter Plan of Treatment Not on file documented as of this encounter Visit Diagnoses Diagnosis Screening mammogram for high-risk patient- Primary documented in this encounter Care Teams Information Management Officer Relationship Specialty Start Date End Date Kev Begum MD [address] [place] [address] PCP - General 08/30/02 documented as of this encounter
--- OUTSIDE RECORDS SUMMARY | 2025-03-12 09:10 | XMS_ITS | Encounter Summary ---
Author Organization [facility] Address [address] [place] [address] Care Team Providers Care Front End Specialist Name Role Phone Kev Begum MD Primary Care Provider [phone] Encounter Details Date Type Department Care Team (Latest Contact Info) Description 01/29/2000 Outpatient Historical [facility] Podiatry-Kelvin Batesnn Keegan [address] [place] [address] Los Humphreys, DPM NO ADDRESS ON FILE Corns and callosities (Primary Dx); Unspecified erythematous condition; Dermatophytosis of nail Social History Tobacco Use Types Packs/Day Years Used Date Smoking Tobacco: Never Assessed Comments Unknown Sex and Gender Information Value Date Recorded Sex Assigned at Not on file Legal Sex Female 5:07 AM TRANSFORMER 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
--- OUTSIDE RECORDS SUMMARY | 2025-03-12 09:10 | XMS_ITS | Encounter Summary ---
Author Organization [facility] Address [address] [place] [address] Care Team Providers Care General Doc Name Role Phone Kev Begum MD Primary Care Provider [phone] Encounter Details Date Type Department Care Team (Latest Contact Info) Description 08/14/2005 Outpatient Historical [facility] Imaging Services [address] [place] [address] Orville Brown MD [address] [facility] [address] [place] [address] PAIN IN LIMB (Primary Dx) Social History Tobacco Use Types Packs/Day Years Used Date Smoking Tobacco: Never Assessed Comments Unknown Sex and Gender Information Value Date Recorded Sex Assigned at Not on file Legal Sex Female 5:07 AM MANUFACTURING RECRUITER Gender Identity Not on file Sexual Orientation Not on file documented as of this encounter Plan of Treatment Not on file documented as of this encounter Visit Diagnoses Diagnosis Pain in limb- Primary documented in this encounter Care Teams General Doc Relationship Specialty Start Date End Date Kev Begum MD [address] [place] [address] PCP - General 08/30/02 documented as of this encounter
--- OUTSIDE RECORDS SUMMARY | 2025-03-12 09:10 | XMS_ITS | Encounter Summary ---
Author Organization [facility] Address [address] [place] [address] Care Team Providers Care Seaport Planning Manager Name Role Phone Kev Begum MD Primary Care Provider [phone] Encounter Details Date Type Department Care Team (Latest Contact Info) Description 06/10/1998 Outpatient Historical [facility] Medicine [address] [place] [address] Orville Brown MD [address] [facility] [address] [place] [address] Sprain of foot, unspecified site (Primary Dx) Social History Tobacco Use Types Packs/Day Years Used Date Smoking Tobacco: Never Assessed Comments Unknown Sex and Gender Information Value Date Recorded Sex Assigned at Not on file Legal Sex Female 5:07 AM SHERIFFS DETECTIVE Gender Identity Not on file Sexual Orientation Not on file documented as of this encounter Plan of Treatment Not on file documented as of this encounter Visit Diagnoses Diagnosis Sprain of foot, unspecified site- Primary documented in this encounter Care Teams Seaport Planning Manager Relationship Specialty Start Date End Date Kev Begum MD [address] [facility] [address] [place] [address] PCP - General 08/30/02 documented as of this encounter
--- OUTSIDE RECORDS SUMMARY | 2025-03-12 09:10 | XMS_ITS | Encounter Summary ---
Author Organization [facility] Address [address] [place] [address] Care Team Providers Care Daytime Babysitter Name Role Phone Kev Begum MD Primary Care Provider Encounter Details Date Type Department Care Team (Latest Contact Info) Description 11/29/1999 Outpatient Historical [facility] OBGYN-Warren Bibb Isabela [address] [place] [address] Sonali Whitehead MD [address] [facility] [place] [address] Postmenopausal bleeding (Primary Dx); Vaginitis and vulvovaginitis, unspecified Social History Tobacco Use Types Packs/Day Years Used Date Smoking Tobacco: Never Assessed Comments Unknown Sex and Gender Information Value Date Recorded Sex Assigned at Not on file Legal Sex Female 5:07 AM PAD EXTRACTOR TENDER Gender Identity Not on file Sexual Orientation Not on file documented as of this encounter Plan of Treatment Not on file documented as of this encounter Visit Diagnoses Diagnosis Postmenopausal bleeding- Primary Vaginitis and vulvovaginitis, unspecified documented in this encounter Care Teams Daytime Babysitter Relationship Specialty Start Date End Date Kev Begum MD [address] [place] [address] PCP - General 08/30/02 documented as of this encounter
--- OUTSIDE RECORDS SUMMARY | 2025-03-12 09:10 | XMS_ITS | Encounter Summary ---
Author Organization [facility] Address [address] [place] [address] Care Team Providers Care Mini Bar Attendant Name Role Phone Kev Begum MD Primary Care Provider [phone] Encounter Details Date Type Department Care Team (Late st Contact Info) Description 10/08/2005 Outpatient [facility] Int [facility] [place] [address] [place] [address] Kev Begum MD [address] [place] [address] FOLLOW-UP EXAM NOS (Primary Dx) Social History Tobacco Use Types Packs/Day Years Used Date Smoking Tobacco: Never Assessed Comments Unknown Sex and Gender Information Value Date Recorded Sex Assigned at Not on file Legal Sex Female 5:07 AM INSULATION CUPOLA OPERATOR Gender Identity Not on file Sexual Orientation Not on file documented as of this encounter Plan of Treatment Not on file documented as of this encounter Visit Diagnoses Diagnosis Unspecified follow-up examination- Primary documented in this encounter Care Teams Mini Bar Attendant Relationship Specialty Start Date End Date Kev Begum MD [address] [place] [address] PCP - General 08/30/02 documented as of this encounter
--- OUTSIDE RECORDS SUMMARY | 2025-03-12 09:10 | XMS_ITS | Encounter Summary ---
Author Organization [facility] Address [address] [place] [address] Care Team Providers Care Vending Machine Technician Name Role Phone Kev Begum MD Primary Care Provider Encounter Details Date Type Department Care Team (Latest Contact Info) Description 02/26/2005 Outpatient Historical [facility] Imaging Services-Warren Tang Keegan [address] [place] [address] Los Humphreys, DPM NO ADDRESS ON FILE CALCANEAL SPUR (Primary Dx); BUNION Social History Tobacco Use Types Packs/Day Years Used Date Smoking Tobacco: Never Assessed Comments Unknown Sex and Gender Information Value Date Recorded Sex Assigned at Not on file Legal Sex Female 5:07 AM LOKIE ENGINEER Gender Identity Not on file Sexual Orientation Not on file documented as of this encounter Plan of Treatment Not on file documented as of this encounter Visit Diagnoses Diagnosis Calcaneal spur- Primary Bunion documented in this encounter Care Teams Vending Machine Technician Relationship Specialty Start Date End Date Kev Begum MD [address] [place] [address] PCP - General 08/30/02 documented as of this encounter
--- OUTSIDE RECORDS SUMMARY | 2025-03-12 09:10 | XMS_ITS | Encounter Summary ---
Author Organization [facility] Address [address] [place] [address] Care Team Providers Care Granite Countertop Installer Name Role Phone Kev Begum MD Primary Care Provider [phone] Encounter Details Date Type Department Care Team (Late st Contact Info) Description 03/06/1998 Outpatient [facility] Int [facility] [address] [place] [address] Kev Begum MD [address] [place] [address] Routine medical exam (Primary Dx) Social History Tobacco Use Types Packs/Day Years Used Date Smoking Tobacco: Never Assessed Comments Unknown Sex and Gender Information Value Date Recorded Sex Assigned at Not on file Legal Sex Female 5:07 AM HAULAGE ENGINE OPERATOR Gender Identity Not on file Sexual Orientation Not on file documented as of this encounter Plan of Treatment Not on file documented as of this encounter Visit Diagnoses Diagnosis Routine medical exam- Primary Routine general medical examination at a health care facility documented in this encounter Care Teams Granite Countertop Installer Relationship Specialty Start Date End Date Kev Begum MD [address] [place] [address] PCP - General 08/30/02 documented as of this encounter
--- OUTSIDE RECORDS SUMMARY | 2025-03-12 09:10 | XMS_ITS | Encounter Summary ---
Author Organization [facility] Address [address] [place] [address] Care Team Providers Care Lead Software Qa Engineer Name Role Phone Kev Begum MD Primary Care Provider [phone] Encounter Details Date Type Department Care Team (Latest Contact Info) Description 09/30/1997 Outpatient [facility] Podiatry[facility] Keegan [address] [place] [address] Los Humphreys, DPM NO ADDRESS ON FILE Dermatophytosis of nail (Primary Dx) Social History Tobacco Use Types Packs/Day Years Used Date Smoking Tobacco: Never Assessed Comments Unknown Sex and Gender Information Value Date Recorded Sex Assigned at Not on file Legal Sex Female 5:07 AM BAND INSTRUMENT REPAIRER Gender Identity Not on file Sexual Orientation Not on file documented as of this encounter Plan of Treatment Not on file documented as of this encounter Visit Diagnoses Diagnosis Dermatophytosis of nail- Primary documented in this encounter Care Teams Lead Software Qa Engineer Relationship Specialty Start Date End Date Kev Begum MD [address] [place] [address] PCP - General 08/30/02 documented as of this encounter
--- OUTSIDE RECORDS SUMMARY | 2025-03-12 09:10 | XMS_ITS | Encounter Summary ---
Author Organization [facility] Address [address] [place] [address] Care Team Providers Care Demolition Hammer Operator Name Role Phone Kev Begum MD Primary Care Provider Encounter Details Date Type Department Care Team (Late st Contact Info) Description 05/09/2020 Ancillary Orders [facility] [address] [place] [address] Kev Begum MD [address] [place] [address] Social History Tobacco Use Types Packs/Day Years Used Date Smoking Tobacco: Never Smokeless Tobacco: Never Alcohol Use Standard Drinks/Week Comments Yes 4.2 (1 standard drink = 0.6 oz p ure alcohol) Comments No Sex and Gender Information Value Date Recorded Sex Assigned at Not on file Legal Sex Female 5:07 AM HOSPITAL ACCOUNT MANAGER Gender Identity Not on file Sexual Orientation Not on file Occupation Industry Job Start Date Job End Date Not on file Not on file Not on file Not on file Not on file Not on file Not on file Not on file COVID-19 Exposure Response Date Recorded In the last month, have you been in contact with someone who was confirmed or suspected to have Coronavirus / COVID-19? Yes 05/09/2020 11:06 AM CDT documented as of this encounter Plan of Treatment Not on file documented as of this encounter Visit Diagnoses Not on filedocumented in this encounter Care Teams Demolition Hammer Operator Relationship Specialty Start Date End Date Kev Begum MD [address] [facility] [address] [place] [address] PCP - General 08/30/02 documented as of this encounter
--- OUTSIDE RECORDS SUMMARY | 2025-03-12 09:10 | XMS_ITS | Encounter Summary ---
Author Organization [facility] Address [address] [place] [address] Care Team Providers Care Pick Up Truck Driver Name Role Phone Kev Begum MD Primary Care Provider [phone] Encounter Details Date Type Department Care Team (Late st Contact Info) Description 08/29/2005 Outpatient [facility] [address] [place] [address] Kev Begum MD [address] [place] [address] Social History Tobacco Use Types Packs/Day Years Used Date Smoking Tobacco: Never Assessed Comments Unknown Sex and Gender Information Value Date Recorded Sex Assigned at Not on file Legal Sex Female 5:07 AM PROPAGATOR Gender Identity Not on file Sexual Orientation Not on file documented as of this encounter Plan of Treatment Not on file documented as of this encounter Visit Diagnoses Not on filedocumented in this encounter Care Teams Pick Up Truck Driver Relationship Specialty Start Date End Date Kev Begum MD [address] [place] [address] PCP - General 08/30/02 documented as of this encounter
--- OUTSIDE RECORDS SUMMARY | 2025-03-12 09:10 | XMS_ITS | Encounter Summary ---
Author Organization [facility] Address [address] [place] [address] Care Team Providers Care Business Area Director Name Role Phone Kev Begum MD Primary Care Provider [phone] Encounter Details Date Type Department Care Team (Latest Contact Info) Description 03/10/2006 Outpatient [facility] [address] [place] [address] Kev Begum MD [address] [place] [address] Unspecified ehrlichiosis (Primary Dx); Fever Social History Tobacco Use Types Packs/Day Years Used Date Smoking Tobacco: Never Assessed Comments Unknown Sex and Gender Information Value Date Recorded Sex Assigned at Not on file Legal Sex Female 5:07 AM PHLEBOTOMY SPECIALIST Gender Identity Not on file Sexual Orientation Not on file documented as of this encounter Plan of Treatment Not on file documented as of this encounter Visit Diagnoses Diagnosis Unspecified ehrlichiosis- Primary Ehrlichiosis, unspecified Fever and other physiologic disturbances of temperature regulation documented in this encounter Care Teams Business Area Director Relationship Specialty Start Date End Date Kev Begum MD [address] [place] [address] PCP - General 08/30/02 documented as of this encounter
--- OUTSIDE RECORDS SUMMARY | 2025-03-12 09:10 | XMS_ITS | Encounter Summary ---
Author Organization [facility] Address [address] [place] [address] Care Team Providers Care International Account Manager Name Role Phone Kev Begum MD Primary Care Provider [phone] Encounter Details Date Type Department Care Team (Latest Contact Info) Description 06/07/2004 Outpatient Historical [facility]- [place] [address] [facility] [facility] [address] [place] [address] Brant Durán MD [address] [place] [address] SCREENING MAL NEOP-COLON (Primary Dx); INT HEMORRHOID W/O COMPL Social History Tobacco Use Types Packs/Day Years Used Date Smoking Tobacco: Never Assessed Comments Unknown Sex and Gender Information Value Date Recorded Sex Assigned at Not on file Legal Sex Female 5:07 AM UPHOLSTERY BUNDLER Gender Identity Not on file Sexual Orientation Not on file documented as of this encounter Plan of Treatment Not on file documented as of this encounter Visit Diagnoses Diagnosis Special screening for malignant neoplasms, colon- Primary Internal hemorrhoids without mention of complication documented in this encounter Care Teams International Account Manager Relationship Specialty Start Date End Date Kev Begum MD [address] [place] [address] PCP - General 08/30/02 documented as of this encounter
--- OUTSIDE RECORDS SUMMARY | 2025-03-12 09:10 | XMS_ITS | Encounter Summary ---
Author Organization [facility] Address [address] [place] [address] Care Team Providers Care State Manager Name Role Phone Kev Begum MD Primary Care Provider [phone] Encounter Details Date Type Department Care Team (Latest Contact Info) Description 01/23/1999 Outpatient Historical [facility] Brant Durán MD [address] [place] [address] Abdominal pain, unspecified site (Primary Dx) Social History Tobacco Use Types Packs/Day Years Used Date Smoking Tobacco: Never Assessed Comments Unknown Sex and Gender Information Value Date Recorded Sex Assigned at Not on file Legal Sex Female 5:07 AM SEAL SKINNER Gender Identity Not on file Sexual Orientation Not on file documented as of this encounter Plan of Treatment Not on file documented as of this encounter Visit Diagnoses Diagnosis Abdominal pain, unspecified site- Primary documented in this encounter Care Teams State Manager Relationship Specialty Start Date End Date Kev Begum MD [address] [facility] [address] [place] [address] PCP - General 08/30/02 documented as of this encounter
--- OUTSIDE RECORDS SUMMARY | 2025-03-12 09:10 | XMS_ITS | Encounter Summary ---
Author Organization [facility] Address [address] [place] [address] Care Team Providers Care Gang Sawyer Name Role Phone Kev Begum MD Primary Care Provider [phone] Encounter Details Date Type Department Care Team (Latest Contact Info) Description 05/10/2004 Outpatient Historical [facility]- [address] [place] [address] Orville Brown MD [address] [facility] [address] [place] [address] JOINT PAIN-L/LEG (Primary Dx) Social History Tobacco Use Types Packs/Day Years Used Date Smoking Tobacco: Never Assessed Comments Unknown Sex and Gender Information Value Date Recorded Sex Assigned at Not on file Legal Sex Female 5:07 AM ASSISTANT REFINERY OPERATOR Gender Identity Not on file Sexual Orientation Not on file documented as of this encounter Plan of Treatment Not on file documented as of this encounter Visit Diagnoses Diagnosis Pain in joint, lower leg- Primary documented in this encounter Care Teams Gang Sawyer Relationship Specialty Start Date End Date Kev Begum MD [address] [facility] [address] [place] [address] PCP - General 08/30/02 documented as of this encounter
--- OUTSIDE RECORDS SUMMARY | 2025-03-12 09:10 | XMS_ITS | Encounter Summary ---
Author Organization [facility] Address [address] [place] [address] Care Team Providers Care Pocketed Spring Assembler Name Role Phone Kev Begum MD Primary Care Provider [phone] Encounter Details Date Type Department Care Team (Latest Contact Info) Description 08/13/2005 Outpatient Historical [facility] Orthopedics- [address] [place] [address] Orville Brown MD [address] [facility] [address] [place] [address] JOINT PAIN-ANKLE (Primary Dx) Social History Tobacco Use Types Packs/Day Years Used Date Smoking Tobacco: Never Assessed Comments Unknown Sex and Gender Information Value Date Recorded Sex Assigned at Not on file Legal Sex Female 5:07 AM COASTAL TUG MATE Gender Identity Not on file Sexual Orientation Not on file documented as of this encounter Plan of Treatment Not on file documented as of this encounter Visit Diagnoses Diagnosis Pain in joint, ankle and foot- Primary documented in this encounter Care Teams Pocketed Spring Assembler Relationship Specialty Start Date End Date Kev Begum MD [address] [facility] [address] [place] [address] PCP - General 08/30/02 documented as of this encounter
--- OUTSIDE RECORDS SUMMARY | 2025-03-12 09:10 | XMS_ITS | Encounter Summary ---
Author Organization [facility] Address [address] [place] [address] Care Team Providers Care Associate Principal Name Role Phone Kev Begum MD Primary Care Provider [phone] Encounter Details Date Type Department Care Team (Late st Contact Info) Description 01/19/1998 Outpatient Historical [facility] Tang Keegan [address] [place] [address] Adelaide Ramos MD NO ADDRESS ON FILE Screening mammogram for high-risk patient (Primary Dx) Social History Tobacco Use Types Packs/Day Years Used Date Smoking Tobacco: Never Assessed Comments Unknown Sex and Gender Information Value Date Recorded Sex Assigned at Not on file Legal Sex Female 5:07 AM AD OPERATIONS INTERN Gender Identity Not on file Sexual Orientation Not on file documented as of this encounter Plan of Treatment Not on file documented as of this encounter Visit Diagnoses Diagnosis Screening mammogram for high-risk patient- Primary documented in this encounter Care Teams Associate Principal Relationship Specialty Start Date End Date Kev Begum MD [address] [facility] [address] [place] [address] PCP - General 08/30/02 documented as of this encounter
--- OUTSIDE RECORDS SUMMARY | 2025-03-12 09:10 | XMS_ITS | Encounter Summary ---
Author Organization [facility] Address [address] [place] [address] Care Team Providers Care Heel Seat Fitter Name Role Phone Kev Begum MD Primary Care Provider [phone] Encounter Details Date Type Department Care Team (Latest Contact Info) Description 09/02/1997 Outpatient [facility] [address] [place] [address] Los Humphreys DPM NO ADDRESS ON FILE Other hammer toe (acquired) (Primary Dx) Social History Tobacco Use Types Packs/Day Years Used Date Smoking Tobacco: Never Assessed Comments Unknown Sex and Gender Information Value Date Recorded Sex Assigned at Not on file Legal Sex Female 5:07 AM FLEET ASSISTANT Gender Identity Not on file Sexual Orientation Not on file documented as of this encounter Plan of Treatment Not on file documented as of this encounter Visit Diagnoses Diagnosis Other hammer toe (acquired)- Primary documented in this encounter Care Teams Heel Seat Fitter Relationship Specialty Start Date End Date Kev Begum MD [address] [place] [address] PCP - General 08/30/02 documented as of this encounter
--- OUTSIDE RECORDS SUMMARY | 2025-03-12 09:10 | XMS_ITS | Encounter Summary ---
Author Organization [facility] Address [address] [place] [address] Care Team Providers Care Health Information Provider Name Role Phone Kev Begum MD Primary Care Provider [phone] Encounter Details Date Type Department Care Team (Latest Contact Info) Description 06/07/2004 Outpatient Historical [facility] [place] [address] [facility] [address] [place] [address] Brant Durán MD [address] [place] [address] SCREENING MAL NEOP-COLON (Primary Dx) Social History Tobacco Use Types Packs/Day Years Used Date Smoking Tobacco: Never Assessed Comments Unknown Sex and Gender Information Value Date Recorded Sex Assigned at Not on file Legal Sex Female 5:07 AM SUPPLY TEACHER Gender Identity Not on file Sexual Orientation Not on file documented as of this encounter Plan of Treatment Not on file documented as of this encounter Visit Diagnoses Diagnosis Special screening for malignant neoplasms, colon- Primary documented in this encounter Care Teams Health Information Provider Relationship Specialty Start Date End Date Kev Begum MD [address] [place] [address] PCP - General 08/30/02 documented as of this encounter
--- OUTSIDE RECORDS SUMMARY | 2025-03-12 09:10 | XMS_ITS | Encounter Summary ---
Author Organization [facility] Address [address] [place] [address] Care Team Providers Care Stone Setter Metal Optical Frames Name Role Phone Kev Begum MD Primary Care Provider [phone] Encounter Details Date Type Department Care Team (Late st Contact Info) Description 03/07/1999 Outpatient Historical [facility] Int [facility] [address] [place] [address] Kev Begum MD [address] [place] [address] Chronic gastric ulcer without mention of hemorrhage, perforation, without mention of obstruction (Primary Dx) Social History Tobacco Use Types Packs/Day Years Used Date Smoking Tobacco: Never Assessed Comments Unknown Sex and Gender Information Value Date Recorded Sex Assigned at Not on file Legal Sex Female 5:07 AM CAROUSEL OPERATOR Gender Identity Not on file Sexual Orientation Not on file documented as of this encounter Plan of Treatment Not on file documented as of this encounter Visit Diagnoses Diagnosis Chronic gastric ulcer without mention of hemorrhage, perforation, without mention of obstruction- Primary documented in this encounter Care Teams Stone Setter Metal Optical Frames Relationship Specialty Start Date End Date Kev Begum MD [address] [place] [address] PCP - General 08/30/02 documented as of this encounter
--- OUTSIDE RECORDS SUMMARY | 2025-03-12 09:10 | XMS_ITS | Encounter Summary ---
Author Organization [facility] Address [address] [place] [address] Care Team Providers Care Draw Tender Name Role Phone Kev Begum MD Primary Care Provider [phone] Encounter Details Date Type Department Care Team (Latest Contact Info) Description 12/05/1998 Outpatient Historical [facility] Brant Durán MD [address] [place] [address] Acute gastric ulcer without mention of hemorrhage, perforation, or obstruction (Primary Dx) Social History Tobacco Use Types Packs/Day Years Used Date Smoking Tobacco: Never Assessed Comments Unknown Sex and Gender Information Value Date Recorded Sex Assigned at Not on file Legal Sex Female 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
--- OUTSIDE RECORDS SUMMARY | 2025-03-12 09:10 | XMS_ITS | Encounter Summary ---
Author Organization [facility] Address [address] [place] [address] Care Team Providers Care Oil Pumper Name Role Phone Kev Begum MD Primary Care Provider [phone] Encounter Details Date Type Department Care Team (Latest Contact Info) Description 12/25/1998 Outpatient Historical [facility] Brant Durán MD [address] [place] [address] Gastric ulcer, unspecified as acute or chronic, without mention of hemorrhage, perforation, or obstruction (Primary Dx) Social History Tobacco Use Types Packs/Day Years Used Date Smoking Tobacco: Never Assessed Comments Unknown Sex and Gender Information Value Date Recorded Sex Assigned at Not on file Legal Sex Female 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
--- OUTSIDE RECORDS SUMMARY | 2025-03-12 09:10 | XMS_ITS | Encounter Summary ---
Author Organization [facility] Address [address] [place] [address] Care Team Providers Care Improvement Manager Name Role Phone Kev Begum MD Primary Care Provider [phone] Encounter Details Date Type Department Care Team (Late st Contact Info) Description 03/24/2000 Outpatient [facility] Int [facility] [address] [place] [address] Kev Begum MD [address] [place] [address] Other blood disease (Primary Dx); Gastric ulcer, unspecified as acute or chronic, without mention of hemorrhage, perforation, or obstruction; Palpitations Social History Tobacco Use Types Packs/Day Years Used Date Smoking Tobacco: Never Assessed Comments Unknown Sex and Gender Information Value Date Recorded Sex Assigned at Not on file Legal Sex Female 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 Gender Identity Not on file Sexual Orientation Not on file documented as of this encounter Plan of Treatment Not on file documented as of this encounter Visit Diagnoses Diagnosis Other blood disease- Primary Other specified diseases of blood and blood-forming organs Gastric ulcer, unspecified as acute or chronic, without mention of hemorrhage, perforation, or obstruction Palpitations documented in this encounter Care Teams Improvement Manager Relationship Specialty Start Date End Date Kev Begum MD [address] [place] [address] PCP - General 08/30/02 documented as of this encounter
--- OUTSIDE RECORDS SUMMARY | 2025-03-12 09:10 | XMS_ITS | Encounter Summary ---
Author Organization [facility] Address [address] [place] [address] Care Team Providers Care Checker/Stocker Name Role Phone Kev Begum MD Primary Care Provider [phone] Reason for Referral * Outpatient Services (Routine) - Closed Specialty Diagnoses / Procedures Referred By Contac t Referred To Contact Diagnoses Other screening mammogram Procedures MAMMO DIGITAL SCREEN BILAT Kev Begum MD [address] [employer] [address] Phone: tel: fax: [facility] Pre-Registration [place] CALL TO MAKE APPOINTMENT ONLY [address] [place] [address] Phone: tel: fax: Referral ID Status Reason Start Date Expiration Date Visits Re quested Visits Authorized [id number] Closed 01/03/2012 01/02/2013 1 1 Encounter Details Date Type Department Care Team (Late st Contact Info) Description 01/03/2012 Ancillary Orders [facility] Pre-Registration [place] CALL TO MAKE APPOINTMENT ONLY [address] [place] [address] Kev Begum MD [address] [facility] [address] [place] [address] Other screening mammogram Social History Tobacco Use Types Packs/Day Years Used Date Smoking Tobacco: Never Smokeless Tobacco: Never Alcohol Use Standard Drinks/Week Comments Yes 4.2 (1 standard drink = 0.6 oz p ure alcohol) Comments No Sex and Gender Information Value Date Recorded Sex Assigned at Not on file Legal Sex Female 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 Findings: Bilateral CC and MLO views were obtained. This examination was reviewed with the aid of a computer-aided detection system(CAD). The breast tissue density is heterogeneously dense. No significant new findings since the prior mammogram(s). Procedure Note Eleanor Quintero MD - 01/08/2012 Bilateral Mammogram Reason for Exam: Screening Comparison: Comparison is made with multiple prior exams, the most recentdated 09/12/2008. Findings: Bilateral CC and MLO views were obtained. This examination was reviewed with the aid of a computer-aided detectionsystem(CAD). The breast tissue density is heterogeneously dense. No significant new findings since the prior mammogram(s). Kev Begum MD MAMMO ORDERABLES Final Result documented in this encounter Visit Diagnoses Diagnosis Other screening mammogram Other screening mammogram documented in this encounter Care Teams Checker/Stocker Relationship Specialty Start Date End Date Kev Begum MD [address] [phone] PCP - General 08/30/02 documented as of this encounter
--- OUTSIDE RECORDS SUMMARY | 2025-03-12 09:10 | XMS_ITS | Encounter Summary ---
Author Organization [facility] Address [address] [place] [address] Care Team Providers Care Filter Press Pumper Name Role Phone Kev Begum MD Primary Care Provider [phone] Encounter Details Date Type Department Care Team (Latest Contact Info) Description 08/01/2005 Outpatient Historical [facility] [address] [place] [address] Los Humphreys DPM NO ADDRESS ON FILE JOINT PAIN-ANKLE (Primary Dx) Social History Tobacco Use Types Packs/Day Years Used Date Smoking Tobacco: Never Assessed Comments Unknown Sex and Gender Information Value Date Recorded Sex Assigned at Not on file Legal Sex Female 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
--- OUTSIDE RECORDS SUMMARY | 2025-03-12 09:10 | XMS_ITS | Encounter Summary ---
Author Organization [facility] Address [address] [place] [address] Care Team Providers Care Resourcing Advisor Name Role Phone Kev Begum MD Primary Care Provider [phone] Encounter Details Date Type Department Care Team (Latest Contact Info) Description 08/01/2005 Outpatient [facility] [place] [address] [place] [address] Los Humphreys DPM NO ADDRESS ON FILE STRESS FRACTURE NEC (Primary Dx); DIFFICULTY IN WALKING Social History Tobacco Use Types Packs/Day Years Used Date Smoking Tobacco: Never Assessed Comments Unknown Sex and Gender Information Value Date Recorded Sex Assigned at Not on file Legal Sex Female 5: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
--- OUTSIDE RECORDS SUMMARY | 2025-03-12 09:10 | XMS_ITS | Encounter Summary ---
Author Organization [facility] Address [address] [place] [address] Care Team Providers Care Brakeshoe Repairer Name Role Phone Kev Begum MD Primary Care Provider [phone] Encounter Details Date Type Department Care Team (Late st Contact Info) Description 04/11/2006 Outpatient [facility] Int [facility] [address] [place] [address] Kev Begum MD [address] [place] [address] Elev Transaminase/Ldh (Primary Dx); Fever Social History Tobacco Use Types Packs/Day Years Used Date Smoking Tobacco: Never Assessed Comments Unknown Sex and Gender Information Value Date Recorded Sex Assigned at Not on file Legal 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
--- OUTSIDE RECORDS SUMMARY | 2025-03-12 09:10 | XMS_ITS | Encounter Summary ---
Author Organization [facility] Address [address] [place] [address] Care Team Providers Care Zmt Operator Name Role Phone Kev Begum MD Primary Care Provider [phone] Reason for Referral * Outpatient Services (Routine) - Closed Specialty Diagnoses / Procedures Referred By Contac t Referred To Contact Radiology Diagnoses Visit for screening mammogram Procedures MAMMO DIGITAL SCREEN BILAT Kev Begum MD [address] [facility] [address] [place] [address] Phone: tel: fax: [facility] [address] [facility] [address] [place] [address] Phone: tel: fax: Referral ID Status Reason Start Date Expiration Date V isits Requested Visits Authorized [id number] Closed F [facility] TO SCHEDULE (SGF) 04/16/2016 05/17/2017 1 1 Encounter Details Date Type Department Care Team (Late st Contact Info) Description 04/16/2016 Ancillary Orders [facility] Pre-Registration [place] CALL TO MAKE APPOINTMENT ONLY [address] [place] [address] Kev Begum MD [address] [facility] [address] [place] [address] Visit for screening mammogram (Primary Dx) Social History Tobacco Use Types Packs/Day Years Used Date Smoking Tobacco: Never Smokeless Tobacco: Never Alcohol Use Standard Drinks/Week Comments Yes 4.2 (1 standard drink = 0.6 oz p ure alcohol) Comments No Sex and Gender Information Value Date Recorded Sex Assigned at Not on file Legal Sex Female 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 SPECIALIST Gender Identity Not on file Sexual Orientation Not on file Occupation Industry Job Start Date Job End Date Not on file Not on file Not on file Not on file Not on file Not on file Not on file Not on file documented as of this encounter Plan of Treatment Not on file documented as of this encounter Results * MAMMO DIGITAL SCREEN BILAT (06/12/2016 11:45 AM CDT) Anatomical Region Laterality Modality Breast Bilateral Mammography Narrative 06/13/2016 11:42 AM CDT Bilateral Mammogram Reason for Exam: Screening Comparison: Compared to: 05/10/2014 MAMMO DIGITAL SCREEN BILAT, 01/27/2013 MAMMO DIGITAL SCREEN BILAT, 01/06/2012 MAMMO DIGITAL SCREEN BILAT, 09/12/2008 MAMMO SCREENING BILAT Findings: Bilateral CC and MLO views were obtained. This examination was reviewed with the aid of a computer-aided detection system(CAD). Breast composition: Heterogeneously dense which may obscure small masses. The fibroglandular pattern is stable. No significant new findings since the prior mammogram(s). Kev Begum MD MAMMO ORDERABLES Final Result documented in this encounter Visit Diagnoses Diagnosis Visit for screening mammogram- Primary Other screening mammogram Visit for screening mammogram Other screening mammogram documented in this encounter Additional Health Concerns Assessment Noted Time PHQ-9 Depression Total Score: 1 04/15/20 16 11:00 AM CDT documented as of this encounter Care Teams Zmt Operator Relationship Specialty Start Date End Date Kev Begum MD [address] [facility] [address] [place] [address] PCP - General 08/30/02 documented as of this encounter
--- OUTSIDE RECORDS SUMMARY | 2025-03-12 09:10 | XMS_ITS | Encounter Summary ---
Author Organization [facility] Address [address] [place] [address] Care Team Providers Care Grade Tamper Name Role Phone Kev Begum MD Primary Care Provider [phone] Encounter Details Date Type Department Care Team (Latest Contact Info) Description 04/01/2005 Outpatient [facility] Podiatry-[place] [address] [place] [address] Los Humphreys DPM NO ADDRESS ON FILE Pain in limb (Primary Dx); LOWER LEG INJURY NOS; Plantar fibromatosis Social History Tobacco Use Types Packs/Day Years Used Date Smoking Tobacco: Never Assessed Comments Unknown Sex and Gender Information Value Date Recorded Sex Assigned at Not on file Legal Sex Female 5:07 AM STOCK TAKER Gender Identity Not on file Sexual Orientation Not on file documented as of this encounter Plan of Treatment Not on file documented as of this encounter Visit Diagnoses Diagnosis Pain in limb- Primary Pain in soft tissues of limb Injury, other and unspecified, knee, leg, ankle, and foot Plantar fibromatosis Plantar fascial fibromatosis documented in this encounter Care Teams Grade Tamper Relationship Specialty Start Date End Date Kev Begum MD [address] [place] [address] PCP - General 08/30/02 documented as of this encounter
--- OUTSIDE RECORDS SUMMARY | 2025-03-12 09:10 | XMS_ITS | Encounter Summary ---
Author Organization [facility] Address [address] [place] [address] Care Team Providers Care Public Health Registrar Name Role Phone Kev Begum MD Primary Care Provider [phone] Reason for Referral * Radiology Services (Routine) - Closed Specialty Diagnoses / Procedures Referred By Contac t Referred To Contact Radiology Diagnoses Encounter for screening mammogram for breast cancer Procedures MAMMO SCRN BILAT 3D DWAYNE W OR WO CAD CHG SCREENING MAMMOGRAPHY BI 2-VIEW BREAST INC CAD CHG SCREENING DIGITAL BREAST TOMOSYNTHESIS BI Kev Begum MD [address] [place] [address] Phone: tel: fax: [facility] [address] [place] [address] Phone: tel: fax: Referral ID Status Reason Start Date Expiration Date V isits Requested Visits Authorized [id number] Closed SGF CTS to Schedule 05/09/2020 06/09/2021 1 1 Encounter Details Date Type Department Care Team (Late st Contact Info) Description 05/09/2020 Ancillary Orders [facility] Pre-Registration [place] CALL TO MAKE APPOINTMENT ONLY [address] [place] [address] Kev Begum MD [address] [place] [address] Encounter for screening mammogram for breast cancer Social History Tobacco Use Types Packs/Day Years Used Date Smoking Tobacco: Never Smokeless Tobacco: Never Alcohol Use Standard Drinks/Week Comments Yes 4.2 (1 standard drink = 0.6 oz p ure alcohol) Comments No Sex and Gender Information Value Date Recorded Sex Assigned at Not on file Legal Sex Female 5:07 AM SEISMIC PLOTTER Gender Identity Not on file Sexual Orientation [...] as of this encounter Results * MAMMO SCRN BILAT 3D DWAYNE W OR WO CAD (07/19/2020 2:11 PM SEISMIC PLOTTER) Anatomical Region Laterality Modality Breast Bilateral Mammography Narrative 07/21/2020 10:07 AM SEISMIC PLOTTER Bilateral Digital Mammogram with CAD and 3D Tomography Reason for Exam: Screening Comparison: Compared to: 02/03/2019 MAMMO SCRN BILAT 3D DWAYNE W OR WO CAD, 06/18/2017 MAMMO SCRN BILAT 3D DWAYNE W OR WO CAD, 06/12/2016 MAMMO DIGITAL SCREEN BILAT, 05/10/2014 MAMMO DIGITAL SCREEN BILAT, and 01/27/2013 MAMMO DIGITAL SCREEN BILAT Technique: 3D MLO and CC digital tomosynthesis images were acquired and synthesized 2D images (C view) were generated. This digital mammogram was also analyzed by the Computer Aided Detection System CAD). Breast Composition: The breasts are heterogeneously dense, which may obscure small masses. There are no suspicious masses, areas of architectural distortions, or microcalcifications to suggest malignancy. No significant new findings since the prior mammogram(s). Kev Begum MD MAMMO ORDERABLES Final Result documented in this encounter Visit Diagnoses Diagnosis Encounter for screening mammogram for breast cancer Encounter for screening mammogram for breast cancer documented in this encounter Care Teams Public Health Registrar Relationship Specialty Start Date End Date Kev Begum MD [address] [facility] [address] [place] [address] PCP - General 08/30/02 documented as of this encounter
--- OUTSIDE RECORDS SUMMARY | 2025-03-12 09:10 | XMS_ITS | Encounter Summary ---
Author Organization [facility] Address [address] [place] [address] Care Team Providers Care Insecticide Mixer Name Role Phone Kev Begum MD Primary Care Provider Encounter Details Date Type Department Care Team (Latest Contact Info) Description 08/06/2005 Outpatient [facility] [place] [address] [place] [address] Los Humphreys DPM NO ADDRESS ON FILE ENTHESOPATHY, SITE NOS (Primary Dx); DIFFICULTY IN WALKING Social History Tobacco Use Types Packs/Day Years Used Date Smoking Tobacco: Never Assessed Comments Unknown Sex and Gender Information Value Date Recorded Sex Assigned at Not on file Legal Sex Female 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
--- OUTSIDE RECORDS SUMMARY | 2025-03-12 09:10 | XMS_ITS | Encounter Summary ---
Author Organization [facility] Address [address] [place] [address] Care Team Providers Care Nursing Home Administrator Name Role Phone Kev Begum MD Primary Care Provider [phone] Encounter Details Date Type Department Care Team (Latest Contact Info) Description 05/29/2005 Outpatient [facility] Podiatry-[facility] Keegan [address] [place] [address] Los Humphreys, DPM NO ADDRESS ON FILE Pain in limb (Primary Dx); Plantar fibromatosis; ACHILLES TENDINITIS; DIFFICULTY IN WALKING Social History Tobacco Use Types Packs/Day Years Used Date Smoking Tobacco: Never Assessed Comments Unknown Sex and Gender Information Value Date Recorded Sex Assigned at Not on file Legal Sex Female 5:07 AM BATCH AND 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
--- OUTSIDE RECORDS SUMMARY | 2025-03-12 09:10 | XMS_ITS | Encounter Summary ---
Author Organization [facility] Address [address] [place] [address] Care Team Providers Care Attorney Recruiter Name Role Phone Kev Begum MD Primary Care Provider [phone] Encounter Details Date Type Department Care Team (Latest Contact Info) Description 02/26/2005 Outpatient [facility] Podiatry-[facility] Keegan [address] [place] [address] Los Humphreys DPM NO ADDRESS ON FILE Plantar fibromatosis (Primary Dx); DIFFICULTY IN WALKING; CALCANEAL SPUR Social History Tobacco Use Types Packs/Day Years Used Date Smoking Tobacco: Never Assessed Comments Unknown Sex and Gender Information Value Date Recorded Sex Assigned at Not on file Legal Sex Female 5:07 AM SAT MATH TUTOR Gender Identity Not on file Sexual Orientation Not on file documented as of this encounter Plan of Treatment Not on file documented as of this encounter Visit Diagnoses Diagnosis Plantar fibromatosis- Primary Plantar fascial fibromatosis Difficulty in walking(719.7) Difficulty in walking Calcaneal spur documented in this encounter Care Teams Attorney Recruiter Relationship Specialty Start Date End Date Kev Begum MD [address] [place] [address] PCP - General 08/30/02 documented as of this encounter
--- OUTSIDE RECORDS SUMMARY | 2025-03-12 09:10 | XMS_ITS | Encounter Summary ---
Author Organization [facility] Address [address] [place] [address] Care Team Providers Care Wind Energy Engineer Name Role Phone Kev Begum MD Primary Care Provider [phone] Encounter Details Date Type Department Care Team (Latest Contact Info) Description 08/29/2005 Outpatient Historical [facility] Kelvin Beckwith Keegan [address] [place] [phone] Nik Serna MD NO ADDRESS ON FILE SCREENING MAMM-MAILG NEOPL NEC (Primary Dx) Social History Tobacco Use Types Packs/Day Years Used Date Smoking Tobacco: Never Assessed Comments Unknown Sex and Gender Information Value Date Recorded Sex Assigned at Not on file Legal Sex Female 5:07 AM [employer] Gender Identity Not on file Sexual Orientation Not on file documented as of this encounter Plan of Treatment Not on file documented as of this encounter Visit Diagnoses Diagnosis Other screening mammogram- Primary documented in this encounter Care Teams Wind Energy Engineer Relationship Specialty Start Date End Date Kev Begum MD [address] [facility] [address] [place] [id number] PCP - General 08/30/02 documented as of this encounter
--- OUTSIDE RECORDS SUMMARY | 2025-03-12 09:10 | XMS_ITS | Encounter Summary ---
Author Organization [facility] Address [address] [place] [address] Care Team Providers Care Freight Car Inspector Name Role Phone Kev Begum MD Primary Care Provider [phone] Encounter Details Date Type Department Care Team (Latest Contact Info) Description 07/02/2005 Outpatient [facility] Podiatry-[facility] Keegan [address] [place] [address] Los Humphreys, DPM NO ADDRESS ON FILE Plantar fibromatosis (Primary Dx); TARSAL TUNNEL SYNDROME; ACHILLES TENDINITIS; DIFFICULTY IN WALKING Social History Tobacco Use Types Packs/Day Years Used Date Smoking Tobacco: Never Assessed Comments Unknown Sex and Gender Information Value Date Recorded Sex Assigned at Not on file Legal Sex Female 5:07 AM ASBESTOS REMOVAL WORKER Gender Identity Not on file Sexual Orientation Not on file documented as of this encounter Plan of Treatment Not on file documented as of this encounter Visit Diagnoses Diagnosis Plantar fibromatosis- Primary Plantar fascial fibromatosis Tarsal tunnel syndrome Achilles bursitis or tendinitis Difficulty in walking(719.7) Difficulty in walking documented in this encounter Care Teams Freight Car Inspector Relationship Specialty Start Date End Date Kev Begum MD [address] [place] [address] PCP - General 08/30/02 documented as of this encounter
--- OUTSIDE RECORDS SUMMARY | 2025-03-12 09:10 | XMS_ITS | Encounter Summary ---
Author Organization [facility] Address [address] [place] [address] Care Team Providers Care Freight Shipping Agent Name Role Phone Kev Begum MD Primary Care Provider [phone] Encounter Details Date Type Department Care Team (Late st Contact Info) Description 07/19/[address] 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 No / Unsure 07/19/2020 1:29 PM BEARING RING ASSEMBLER documented as of this encounter Plan of Treatment Not on file documented as of this encounter Results * MAMMO PRIOR STUDY (01/27/2013 6:50 AM CDT) Narrative 07/19/2020 6:49 AM BEARING RING ASSEMBLER This exam was auto finalized to allow images to be scanned to PACS. Kev Begum MD DIAGNOSTIC IMAGING ORDERABLES Final Result documented in this encounter Visit Diagnoses Diagnosis Encounter for screening mammogram for breast cancer Encounter for screening mammogram for breast cancer documented in this encounter Care Teams Freight Shipping Agent Relationship Specialty Start Date End Date Kev Begum MD [address] [facility] [address] [place] [address] PCP - General 08/30/02 documented as of this encounter
--- OUTSIDE RECORDS SUMMARY | 2025-03-12 09:10 | XMS_ITS | Encounter Summary ---
Author Organization [facility] Address [address] [place] [address] Care Team Providers Care Sewing Department Supervisor Name Role Phone Kev Begum MD Primary Care Provider [phone] Encounter Details Date Type Department Care Team (Latest Contact Info) Description 09/27/1998 Outpatient Historical [facility] Brant Durán MD [address] [place] [address] Abdominal pain, unspecified site (Primary Dx); Peptic ulcer, unspecified site, unspecified as acute or chronic, without mention of hemorrhage, perforation, or obstruction Social History Tobacco Use Types Packs/Day Years Used Date Smoking Tobacco: Never Assessed Comments Unknown Sex and Gender Information Value Date Recorded Sex Assigned at Not on file 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
--- OUTSIDE RECORDS SUMMARY | 2025-03-12 09:10 | XMS_ITS | Encounter Summary ---
Author Organization [facility] Address [address] [place] [address] Care Team Providers Care Frit Coater Name Role Phone Kev Begum MD Primary Care Provider [phone] Encounter Details Date Type Department Care Team (Latest Contact Info) Description 11/23/1997 Outpatient Historical [facility] Imaging Services-[facility] Keegan [address] [place] [address] Trish Michael MD NO ADDRESS ON FILE Acute sinusitis, unspecified (Primary Dx) Social History Tobacco Use Types Packs/Day Years Used Date Smoking Tobacco: Never Assessed Comments Unknown Sex and Gender Information Value Date Recorded Sex Assigned at Not on file Legal Sex Female 5:07 AM [employer] Gender Identity Not on file Sexual Orientation Not on file documented as of this encounter Plan of Treatment Not on file documented as of this encounter Visit Diagnoses Diagnosis Acute sinusitis, unspecified- Primary documented in this encounter Care Teams Frit Coater Relationship Specialty Start Date End Date Kev Begum MD [address] [place] [phone] PCP - General 08/30/02 documented as of this encounter
--- OUTSIDE RECORDS SUMMARY | 2025-03-12 09:10 | XMS_ITS | Encounter Summary ---
Author Organization [facility] Address [address] [place] [address] Care Team Providers Care Dials Supervisor Name Role Phone Kev Begum MD Primary Care Provider [phone] Encounter Details Date Type Department Care Team (Late st Contact Info) Description 03/24/2000 Outpatient Historical [facility] Kelvin Beckwith Keegan [address] 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
--- OUTSIDE RECORDS SUMMARY | 2025-03-12 09:10 | XMS_ITS | Encounter Summary ---
Author Organization [facility] Address [address] [place] [address] Care Team Providers Care Carbon Cleaner Name Role Phone Kev Begum MD Primary Care Provider [phone] Encounter Details Date Type Department Care Team (Late st Contact Info) Description 01/29/2000 Outpatient Historical [facility]Kelvin Batesnn Keegan [address] [place] [address] Sonali Whitehead MD [address] [facility] [place] [address] Follow-up examination following surgery (Primary Dx); Postmenopausal bleeding Social History Tobacco Use Types Packs/Day Years Used Date Smoking Tobacco: Never Assessed Comments Unknown Sex and Gender Information Value Date Recorded Sex Assigned at Not on file Legal Sex Female 5:07 AM MAJOR GENERAL Gender Identity Not on file Sexual Orientation Not on file documented as of this encounter Plan of Treatment Not on file documented as of this encounter Visit Diagnoses Diagnosis Follow-up examination following surgery- Primary Postmenopausal bleeding documented in this encounter Care Teams Carbon Cleaner Relationship Specialty Start Date End Date Kev Begum MD [address] [place] [address] PCP - General 08/30/02 documented as of this encounter
--- OUTSIDE RECORDS SUMMARY | 2025-03-12 09:10 | XMS_ITS | Encounter Summary ---
Author Organization [facility] Address [address] [place] [address] Care Team Providers Care Casual Shoe Inspector Name Role Phone Kev Begum MD Primary Care Provider [phone] Encounter Details Date Type Department Care Team (Late st Contact Info) Description 02/21/2006 Inpatient Historical HIS IN BED Kev Begum MD [address] [facility] [address] [place] [id number] Unspecified Thrombocytopenia (Primary Dx) Social History Tobacco Use Types Packs/Day Years Used Date Smoking Tobacco: Never Assessed Comments Unknown Sex and Gender Information Value Date Recorded Sex Assigned at Not on file Legal 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 Gender Identity Not on file Sexual Orientation Not on file documented as of this encounter Plan of Treatment Not on file documented as of this encounter Procedures Procedure Name Priority Date/Time Associated Diagnosis Comments CBC WITH DIFFERENTIAL Routine 02/24/2006 5:35 AM CDT COMPREHENSIVE METABOLIC PANEL Routine 02/24/2006 5:35 AM CDT DIFFERENTIAL, MANUAL Routine 02/23/2006 4:43 AM CDT CBC WITH DIFFERENTIAL Routine 02/23/2006 4:43 AM CDT BRAIN NATRIURETIC PEPTIDE, BNP OR PROBNP Routine 02/23/2006 4:43 AM CDT COMPREHENSIVE METABOLIC PANEL Routine 02/23/2006 4:43 AM CDT ACUTE HEPATITIS PANEL Routine 02/22/2006 3:23 AM CDT CMV IGG AND IGM ANTIBODIES Routine 02/22/2006 3:23 AM CDT CBC WITH DIFFERENTIAL Routine 02/22/2006 3:23 AM CDT COMPREHENSIVE METABOLIC PANEL Routine 02/22/2006 3:23 AM CDT SODIUM, RANDOM URINE Routine 02/21/2006 6:57 PM CDT OSMOLALITY, URINE Routine 02/21/2006 6:5 7 PM CDT CREATININE, RANDOM URINE Routine 02/21/2006 6:57 PM CDT DIC PROFILE Routine 02/21/2006 6:15 PM CDT BRAIN NATRIURETIC PEPTIDE, BNP OR PROBNP Routine 02/21/2006 3:15 PM CDT XR CHEST PA AND LATERAL 2 VW Routine 02/21/2006 12:51 PM CDT XR CHEST PA AND LATERAL 2 VW Routine 02/21/2006 12:51 PM CDT XR CHEST PA OR AP 1 VW Routine 6 12:51 PM CDT US RIGHT UPR QUADRANT Routine 02/21/2006 12:51 PM CDT RICKETTSIA RICKETTSII IGG/IGM ABS Routine 02/21/2006 11:18 AM CDT EHRLICHIA BY PCR Routine 02/21/2006 11:1 8 AM CDT LYME AB IGG/IGM Routine 02/21/2006 11:18 AM CDT RAPID STREP SCREEN WITH REFLEX CULTURE Routine 02/21/2006 10:21 AM CDT TOTAL PROTEIN, CSF Routine 02/21/2006 9: 38 AM CDT SPINAL FLUID CELL COUNT W/REFLEX DIFFERENTIAL Routine 02/21/2006 9:38 AM CDT GLUCOSE, CSF Routine 02/21/2006 9:38 AM CDT URINALYSIS MICROSCOPY ONLY Routine 02/21/2006 8:10 AM CDT KETONE, QUALITATIVE, URINE Routine 02/21/2006 8:10 AM CDT URINALYSIS W/REFLEX MICROSCOPIC Routine 02/21/2006 8:10 AM CDT CBC WITH DIFFERENTIAL Routine 02/21/2006 7:47 AM CDT COMPREHENSIVE METABOLIC PANEL Routine 02/21/2006 7:46 AM CDT documented in this encounter Results * (ABNORMAL) COMPREHENSIVE METABOLIC PANEL (02/24/2006 5:35 AM CDT) GLUCOSE 96 70 - 110 mg/dL INTERFACE SYSTEM BUN 5(L) 7 - 17 mg/dL INTERFACE SYSTEM CREATININE 0.5(L) 0.7 - 1.2 mg/dL INTERFACE SYSTEM SODIUM 135(L) 136 - 145 mEq/L INTERFACE SYSTEM POTASSIUM 3.7 3.5 - 5.0 mEq/L INTERFACE SYSTEM CHLORIDE 104 95 - 110 mEq/L INTERFACE SYSTEM CO2 26 22 - 32 mmol/l INTERFACE SYSTEM ANION GAP 9 9 - 20 mEq/L INTERFACE SYSTEM OSMOLALITY, CALCULATED 275 275 - 295 mOsm/Kg INTERFACE SYSTEM CALCIUM 8.4 8.4 - 10.5 mg/dL INTERFACE SYSTEM TOTAL PROTEIN 5.7(L) 6.3 - 8.2 g/dL INTERFACE SYSTEM ALBUMIN 3.4(L) 3.5 - 5.0 g/dL INTERFACE SYSTEM GLOBULIN (CALC) 2.3(L) 2.4 - 3.9 g/dL INTERFACE SYSTEM ALBUMIN/GLOBULIN RATIO 1.5 1.0 - 2.3 INTERFACE SYSTEM ALKALINE PHOSPHATASE 143(H) 25 - 100 U/L INTERFACE SYSTEM Comment: As of [address] [facility] has changed testing methods. The new reference range is 25-100 The old referance range was 38-126 AST 339(H) 8 - 33 U/L INTERFACE SYSTEM Comment: As of [address] [facility] has changed testing methods. The new reference range is 8-33 The old referance range was Males 17-59 Females 14-36 ALT 451(H) 4 - 36 IU/L INTERFACE SYSTEM Comment: As of [address] [facility] has changed testing methods. The new reference range is 4-36 The old referance range was Males 21-72 Females 9-52 BILIRUBIN TOTAL 0.5 0.3 - 1.2 mg/dL INTERFACE SYSTEM Comment: As of 05 the [facility] has changed testing methods. The new reference range is 0.3-1.2 The old referance range was 0.2-1.4 02/24/2006 5:35 AM CDT Kev Begum MD CHEMISTRY ORDERABLES Final Re sult INTERFACE SYSTEM Refer to clinic/hospital department * (ABNORMAL) CBC WITH DIFFERENTIAL (02/24/2006 5:35 AM CDT) WBC 7.6 4.8 - 10.8 K/ul INTERFACE SYSTEM RBC 3.75(L) 4.20 - 5.40 Mil/ul INTERFACE SYSTEM HEMOGLOBIN 12.4 12.0 - 16.0 g/dL INTERFACE SYSTEM HEMATOCRIT 34.0(L) 36.0 - 46.0 % INTERFACE SYSTEM MCV 90.7 84.0 - 103.0 Fl INTERFACE SYSTEM MCH 33.1 27.0 - 34.0 pg INTERFACE SYSTEM MCHC 36.5(H) 30.0 - 35.0 g/dL INTERFACE SYSTEM RDW 12.8 11.0 - 14.5 % INTERFACE SYSTEM PLATELETS 210 140 - 440 K/ul INTERFACE SYSTEM MPV 9.6 8.9 - 12.8 Fl INTERFACE SYSTEM NEUTROPHILS 14.5(L) 42.2 - 75.2 % INTERFACE SYSTEM LYMPHOCYTES 78.1(H) 24.0 - 44.0 % INTERFACE SYSTEM MONOCYTES 4.5 2.0 - 10.0 % INTERFA CE SYSTEM EOSINOPHILS 1.3 0.0 - 7.0 % INTERF REGGIE SYSTEM BASOPHILS 1.6(H) 0.0 - 1.0 % INTERFAC E SYSTEM NEUTROPHIL ABSOLUTE 1.1(L) 2.0 - 8.0 K/uL INTERFACE SYSTEM LYMPHOCYTE ABSOLUTE 6.0(H) 1.2 - 4.0 K/ul INTERFACE SYSTEM MONOCYTE ABSOLUTE 0.3 0.1 - 0.6 K/ul INTERFACE SYSTEM EOSINOPHIL ABSOLUTE 0.1 0.0 - 0.7 K/ul INTERFACE SYSTEM BASOPHILS ABSOLUTE 0.1 0.0 - 0.2 K/ul INTERFACE SYSTEM PERIPHERAL BLOOD SMEAR REVIEW Automated Diff Automated Diff INTERFACE SYSTEM 02/24/2006 5:35 AM CDT Kev Begum MD HEMATOLOGY ORDERABLES Final R esult Performing Organization Address City/[facility]/ZIP Co de Phone Number INTERFACE SYSTEM Refer to clinic/hospital department * (ABNORMAL) BRAIN NATRIURETIC PEPTIDE, BNP OR PROBNP (02/23/2006 4:43 AM CDT) BRAIN NATRIURETIC PEPTIDE 193(H) 0 - 125 pg/mL INTERFACE SYSTEM 02/23/2006 4:43 AM CDT Kev Begum MD CHEMISTRY ORDERABLES Final Re sult Performing Organization Address [facility] Co de Phone Number INTERFACE SYSTEM Refer to clinic/hospital department * (ABNORMAL) DIFFERENTIAL, MANUAL (02/23/2006 4:43 AM CDT) NEUTROPHILS, SEG 16(L) 36 - 66 % INTERFACE SYSTEM BANDS 1 0 - 6 % INTERFACE SYSTEM LYMPHOCYTES 75(H) 24 - 44 % INTERFAC E SYSTEM Comment:Reactive lymphs pres ent. MONOCYTE 8 4 - 10 % INTERFACE SYSTEM PLATELET EST. Normal Normal INTERF REGGIE SYSTEM RBC MORPHOLOGY Normal Normal INTER FACE SYSTEM SMUDGE CELLS Present(A) None Seen INTERF REGGIE SYSTEM 02/23/2006 4:43 AM CDT Kev Begum MD HEMATOLOGY ORDERABLES COM Fin al Result Performing Organization Address [facility] Phone Number INTERFACE SYSTEM Refer to clinic/hospital department * (ABNORMAL) CBC WITH DIFFERENTIAL (02/23/2006 4:43 AM CDT) WBC 6.5 4.8 - 10.8 K/ul INTERFACE SYSTEM RBC 3.76(L) 4.20 - 5.40 Mil/ul INTERFACE SYSTEM HEMOGLOBIN 12.5 12.0 - 16.0 g/dL INTERFACE SYSTEM HEMATOCRIT 33.7(L) 36.0 - 46.0 % INTER FACE SYSTEM MCV 89.6 84.0 - 103.0 Fl INTERFACE SYSTEM MCH 33.2 27.0 - 34.0 pg INTERFACE SYSTEM MCHC 37.1(H) 30.0 - 35.0 g/dL INTERFACE SYSTEM RDW 12.4 11.0 - 14.5 % INTERF REGGIE SYSTEM PLATELETS 150 140 - 440 K/ul INTERFACE SYSTEM MPV 10.1 8.9 - 12.8 Fl INTERF REGGIE SYSTEM HEM COMMENT Smear Reviewed Automated Diff INTERFACE SYSTEM Comment: Normochromic anemia. Neutropenia. Reactive appearing lymphocytosis. Interpreted by: Pankaj Taylor M.D. 02/23/2006 4:43 AM CDT Kev Begum MD HEMATOLOGY ORDERABLES Final R esult Performing Organization Address [facility] Phone Number INTERFACE SYSTEM Refer to clinic/hospital department * (ABNORMAL) COMPREHENSIVE METABOLIC PANEL (02/23/2006 4:43 AM CDT) Pathologist [facility] GLUCOSE 84 70 - 110 mg/dL INTERFACE SYSTEM BUN 5(L) 7 - 17 mg/dL INTERFACE SYSTEM CREATININE 0.5(L) 0.7 - 1.2 mg/dL INTERFACE SYSTEM SODIUM 134(L) 136 - 145 mEq/L INTERFACE SYSTEM POTASSIUM 3.9 3.5 - 5.0 mEq/L INTERFACE SYSTEM CHLORIDE 103 95 - 110 mEq/L INTERFACE SYSTEM CO2 25 22 - 32 mmol/l INTERFACE SYSTEM ANION GAP 10 9 - 20 mEq/L INTERFACE SYSTEM OSMOLALITY, CALCULATED 273(L) 275 - 295 mOsm/Kg INTERFACE SYSTEM CALCIUM 8.3(L) 8.4 - 10.5 mg/dL INTERFACE SYSTEM TOTAL PROTEIN 5.5(L) 6.3 - 8.2 g/dL INTERFACE SYSTEM ALBUMIN 3.3(L) 3.5 - 5.0 g/dL INTERFACE SYSTEM GLOBULIN (CALC) 2.2(L) 2.4 - 3.9 g/dL INTERFACE SYSTEM ALBUMIN/GLOBULIN RATIO 1.5 1.0 - 2.3 INTERFACE SYSTEM ALKALINE PHOSPHATASE 143(H) 25 - 100 U/L INTERFACE SYSTEM Comment: As of [address] [facility] has changed testing methods. The new reference range is 25-100 The old referance range was 38-126 AST 340(H) 8 - 33 U/L INTERFACE SYSTEM Comment: As of [address] [facility] has changed testing methods. The new reference range is 8-33 The old referance range was Males 17-59 Females 14-36 ALT 412(H) 4 - 36 IU/L INTERFACE SYSTEM Comment: As of [address] [facility] has changed testing methods. The new reference range is 4-36 The old referance range was Males 21-72 Females 9-52 BILIRUBIN TOTAL 0.4 0.3 - 1.2 mg/dL INTERFACE SYSTEM Comment: As of 05 the [facility] has changed testing methods. The new reference range is 0.3-1.2 The old referance range was 0.2-1.4 02/23/2006 4:43 AM CDT Kev Begum MD CHEMISTRY ORDERABLES Final Re sult INTERFACE SYSTEM Refer to clinic/hospital department * ACUTE HEPATITIS PANEL (02/22/2006 3:23 AM CDT) HEPATITIS B SURFACE AG Negative Negative INTERFACE SYSTEM HEPATITIS B CORE IGM Negative Negative INTERFACE SYSTEM HEPATITIS A IGM Negative Negative INTE RFACE SYSTEM HEPATITIS C AB Negative Negative INTER FACE SYSTEM Comment: HCV antibody testing is performed by E.I.A. methodology. CDC recommends positive HCV antibody tests have confirmation testing. Low positive results should be confirmed with RIBA. This will determine if results are false positive. If a high positive result is obtained an HCV RNA may be run. The RNA test confirms infection and the level of the RNA, to some extent, helps guide treatment. The same specimen can be used for RIBA and will be held for 7 days. Please contact the Immunology lab if RIBA testing is desired. However, if HCV RNA testing is desired, a new specimen must be collected. Blood should be collected in SST (serum) or EDTA (plasma) separation tubes. Separate serum or plasma from whole blood within 6 hours of collection. Serum or plasma can be transported at refrigerated temperature or frozen and transported. 02/22/2006 3:23 AM CDT us Kev Begum MD CHEMISTRY ORDERABLES Final Re sult Performing Organization Address [facility] de Phone Number INTERFACE SYSTEM Refer to clinic/hospital department * CMV IGG AND IGM ANTIBODIES (02/22/2006 3:23 AM CDT) CMV IGG/IGM ABS See Sep Report INTERFACE SYSTEM 02/22/2006 3:23 AM CDT us Kev Begum MD CHEMISTRY ORDERABLES Final Re sult Performing Organization Address [facility] de Phone Number INTERFACE SYSTEM Refer to clinic/hospital department * (ABNORMAL) COMPREHENSIVE METABOLIC PANEL (02/22/2006 3:23 AM CDT) GLUCOSE 104 70 - 110 mg/dL INTERFACE SYSTEM BUN 8 7 - 17 mg/dL INTERFACE SYSTEM CREATININE 0.6(L) 0.7 - 1.2 mg/dL INTERFACE SYSTEM SODIUM 131(L) 136 - 145 mEq/L INTERFACE SYSTEM POTASSIUM 3.5 3.5 - 5.0 mEq/L INTERFACE SYSTEM CHLORIDE 99 95 - 110 mEq/L INTERFACE SYSTEM CO2 22 22 - 32 mmol/l INTERFACE SYSTEM ANION GAP 14 9 - 20 mEq/L INTERFACE SYSTEM OSMOLALITY, CALCULATED 269(L) 275 - 295 mOsm/Kg INTERFACE SYSTEM CALCIUM 7.8(L) 8.4 - 10.5 mg/dL INTERFACE SYSTEM TOTAL PROTEIN 5.5(L) 6.3 - 8.2 g/dL INTERFACE SYSTEM ALBUMIN 3.2(L) 3.5 - 5.0 g/dL INTERFACE SYSTEM GLOBULIN (CALC) 2.3(L) 2.4 - 3.9 g/dL INTERFACE SYSTEM ALBUMIN/GLOBULIN RATIO 1.4 1.0 - 2.3 INTERFACE SYSTEM ALKALINE PHOSPHATASE 153(H) 25 - 100 U/L INTERFACE SYSTEM Comment: As of [address] [facility] has changed testing methods. The new reference range is 25-100 The old referance range was 38-126 AST 361(H) 8 - 33 U/L INTERFACE SYSTEM Comment: As of [address] [facility] has changed testing methods. The new reference range is 8-33 The old referance range was Males 17-59 Females 14-36 ALT 373(H) 4 - 36 IU/L INTERFACE SYSTEM Comment: As of [address] [facility] has changed testing methods. The new reference range is 4-36 The old referance range was Males 21-72 Females 9-52 BILIRUBIN TOTAL 0.5 0.3 - 1.2 mg/dL INTERFACE SYSTEM Comment: As of 05 the [facility] has changed testing methods. The new reference range is 0.3-1.2 The old referance range was 0.2-1.4 02/22/2006 3:23 AM CDT us Kev Begum MD CHEMISTRY ORDERABLES Final Re sult INTERFACE SYSTEM Refer to clinic/hospital department * (ABNORMAL) CBC WITH DIFFERENTIAL (02/22/2006 3:23 AM CDT) WBC 4.6(L) 4.8 - 10.8 K/ul INTERFACE SYSTEM RBC 3.82(L) 4.20 - 5.40 Mil/ul INTERFACE SYSTEM HEMOGLOBIN 12.5 12.0 - 16.0 g/dL INTERFACE SYSTEM HEMATOCRIT 33.9(L) 36.0 - 46.0 % INTERFACE SYSTEM MCV 88.7 84.0 - 103.0 Fl INTERFACE SYSTEM MCH 32.7 27.0 - 34.0 pg INTERFACE SYSTEM MCHC 36.9(H) 30.0 - 35.0 g/dL INTERFACE SYSTEM RDW 12.2 11.0 - 14.5 % INTERFACE SYSTEM PLATELETS 93(L) 140 - 440 K/ul INTERFACE SYSTEM MPV 10.4 8.9 - 12.8 Fl INTERFACE SYSTEM NEUTROPHILS 44.6 42.2 - 75.2 % INTERFACE SYSTEM LYMPHOCYTES 42.0 24.0 - 44.0 % INTERFACE SYSTEM MONOCYTES 10.6(H) 2.0 - 10.0 % INTERFA CE SYSTEM BASOPHILS 2.8(H) 0.0 - 1.0 % INTERFAC E SYSTEM NEUTROPHIL ABSOLUTE 2.1 2.0 - 8.0 K/uL INTERFACE SYSTEM LYMPHOCYTE ABSOLUTE 1.9 1.2 - 4.0 K/ul INTERFACE SYSTEM MONOCYTE ABSOLUTE 0.5 0.1 - 0.6 K/ul INTERFACE SYSTEM BASOPHILS ABSOLUTE 0.1 0.0 - 0.2 K/ul INTERFACE SYSTEM PERIPHERAL BLOOD SMEAR REVIEW Automated Diff Automated Diff INTERFACE SYSTEM 02/22/2006 3:23 AM CDT us Kev Begum MD HEMATOLOGY ORDERABLES Final R esult Performing Organization Address City/[facility] Phone Number INTERFACE SYSTEM Refer to clinic/hospital department * CREATININE, RANDOM URINE (02/21/2006 6:57 PM CDT) Creatinine, Urine 174.5 mg/dL INTERFACE SYSTEM 02/21/2006 6:57 PM CDT Kev Begum MD URINE ORDERABLES Final Result Performing Organization Address [facility] Phone Number INTERFACE SYSTEM Refer to clinic/hospital department * OSMOLALITY, URINE (02/21/2006 6:57 PM CDT) OSMOLALITY, URINE 601 50 - 1400 mOsm/K INTERFACE SYSTEM 02/21/2006 6:57 PM CDT Kev Begum MD URINE ORDERABLES Final Result Performing Organization Address City/[facility] Phone Number INTERFACE SYSTEM Refer to clinic/hospital department * SODIUM, RANDOM URINE (02/21/2006 6:57 PM CDT) SODIUM, URINE 38 mmol/l INTERF REGGIE SYSTEM 02/21/2006 6:57 PM CDT Kev Begum MD URINE ORDERABLES Final Result Performing Organization Address [facility] Phone Number INTERFACE SYSTEM Refer to clinic/hospital department * (ABNORMAL) DIC PROFILE (02/21/2006 6:15 PM CDT) PLATELETS 87(L) 140 - 440 K/ul INTERFACE SYSTEM PROTIME 14.3 12.6 - 14.9 Secs INTERFACE SYSTEM Comment: As of 05 note change in normal range. PTT 39.9(H) 21.5 - 34.4 Secs INTERFACE SYSTEM Comment: Therapeutic Range: Hi-level PE/DVT heparin protocol 90.1 -110 sec Lo-level PE/DVT heparin protocol 75.1 - 95 sec Cardiac Heparin Protocol 85.1 - 100 sec Neuro Heparin Protocol 70.1 - 85 sec As of 09/25/05 note change in APTT Normal Range. SOLUBLE FIBRIN MONOMERS Negative Negative INTERFACE SYSTEM THROMBIN TIME 20.3 15.0 - 21.0 Secs INTERFACE SYSTEM FIBRINOGEN 218 200 - 400 mg/dL INTERFACE SYSTEM D-DIMER QUANT 5.1(H) 0.0 - 0.5 mcg/mL INTERFACE SYSTEM SCHISTOCYTES Occasional None Seen INTERF REGGIE SYSTEM 02/21/2006 6:15 PM CDT Kev Begum MD HEMATOLOGY ORDERABLES Final R esult Performing Organization Address [facility] Phone Number INTERFACE SYSTEM Refer to clinic/hospital department * (ABNORMAL) BRAIN NATRIURETIC PEPTIDE, BNP OR PROBNP (02/21/2006 3:15 PM CDT) BRAIN NATRIURETIC PEPTIDE 450(H) 0 - 125 pg/mL INTERFACE SYSTEM 02/21/2006 3:15 PM CDT Kev Begum MD CHEMISTRY ORDERABLES Final Re sult Performing Organization Address [facility] Phone Number INTERFACE SYSTEM Refer to clinic/hospital department * XR CHEST PA AND LATERAL (02/21/2006 12:51 PM CDT) Anatomical Region Laterality Modality Chest Other 02/21/2006 12:5 1 PM CDT Narrative 02/21/2006 12:51 PM CDT PA AND LATERAL CHEST DATE: 02/23/2006. CLINICAL INFORMATION: Fever and headache. FINDINGS: Comparison made to prior exam dated 02/22. Compared with the prior exam, there has been interval decrease in pulmonary vascular markings which are still prominent, as is generalized interstitial pattern. There has been interval appearance of small bilateral pleural effusions. Heart size is increased. It should be noted that the above changes are likely at least partially related to change in patient position from supine to erect. IMPRESSION: Continued features likely at least partially related to congestive failure and mild interstitial edema. Possible interval improvement over 02/22 although comparison is limited by change in patient position. Clinical correlation is recommended. gb Dictated By: Robin Mccall M.D. Electronically Signed By: Robin Mccall M.D. Date Signed: 02/23/06 [facility] Procedure Note 07/20/2009 PA AND LATERAL CHEST DATE: 02/23/2006. CLINICAL INFORMATION: Fever and headache. FINDINGS: Comparison made to prior exam dated 02/22. Compared with the prior exam,there has been interval decrease in pulmonary vascular markings which are still prominent, as isgeneralized interstitial pattern. There has been interval appearance of small bilateral pleuraleffusions. Heart size is increased. It should be noted that the above changes are likely at leastpartially related to change in patient position from supine to erect. IMPRESSION: Continued features likely at least partially related to congestivefailure and mild interstitial edema. Possible interval improvement over 02/22 although comparison is limitedby change in patient position. Clinical correlation is recommended. gb Dictated By: Robin Mccall M.D. Electronically Signed By: Robin Mccall M.D. Date Signed: 02/23/06 [facility] Kev Begum MD DIAGNOSTIC IMAGING ORDERABLES Final Result * XR CHEST PA OR AP (02/21/2006 12:51 PM CDT) Anatomical Region Laterality Modality Chest Other 02/21/2006 12:5 1 PM CDT Narrative 02/21/2006 12:51 PM CDT PORTABLE CHEST 02/22/2006 CLINICAL INFORMATION: Fever and headache. FINDINGS: Exam was performed with patient in AP supine position and compared with 02/21 at 0806 hours. Compared to the prior study, there has been interval increase in pulmonary vascular markings although this is partially related to supine patient position. No pleural effusion evident. Cardiomediastinal and hilar contours are unremarkable given the technique. IMPRESSION: Increase in pulmonary vascular markings compared with 02/21. Although at least partially related to supine position, interval appearance of congestive failure with fluid overload cannot be excluded. Upright PA and lateral projections are recommended for more accurate assessment when feasible if clinically warranted. sa 836 AM 355 PM Dictated By: Robin Mccall M.D. Electronically Signed By: Robin Mccall M.D. Date Signed: 02/23/06 [facility] Procedure Note 07/20/2009 PORTABLE CHEST 02/22/2006 CLINICAL INFORMATION: Fever and headache. FINDINGS: Exam was performed with patient in AP supine position and compared with02/21 at 0806 hours. Compared to the prior study, there has been interval increase in pulmonary vascularmarkings although this is partially related to supine patient position. No pleural effusionevident. Cardiomediastinal and hilar contours are unremarkable given the technique. IMPRESSION: Increase in pulmonary vascular markings compared with 02/21. Although atleast partially related to supine position, interval appearance of congestive failure with fluidoverload cannot be excluded. Upright PA and lateral projections are recommended for more accurateassessment when feasible if clinically warranted. sa 836 AM 355 PM Dictated By: Robin Mccall M.D. Electronically Signed By: Robin Mccall M.D. Date Signed: 02/23/06 [facility] Kev Begum MD DIAGNOSTIC IMAGING ORDERABLES Final Result * US RIGHT UPR QUADRANT (02/21/2006 12:51 PM CDT) Anatomical Region Laterality Modality Abdomen Other 02/21/2006 12:5 1 PM CDT Narrative 02/21/2006 12:51 PM CDT RIGHT UPPER QUADRANT ULTRASOUND DATE: 02/22/2006. CLINICAL INFORMATION: Fever and abdominal pain. FINDINGS: Hepatic size and echotexture are within normal limits. The patient is status post cholecystectomy and there is no evidence of biliary dilatation. The visualized pancreas and right kidney are unremarkable. No ascites seen. IMPRESSION: No significant pathology demonstrated. Status post cholecystectomy. [email or web address] 825 Dictated By: Robin Mccall M.D. Electronically Signed By: Robin Mccall M.D. Date Signed: 02/23/06 [facility] Procedure Note 07/20/2009 RIGHT UPPER QUADRANT ULTRASOUND DATE: 02/22/2006. CLINICAL INFORMATION: Fever and abdominal pain. FINDINGS: Hepatic size and echotexture are within normal limits. The patient isstatus post cholecystectomy and there is no evidence of biliary dilatation. The visualized pancreas andright kidney are unremarkable. No ascites seen. IMPRESSION: No significant pathology demonstrated. Status post cholecystectomy. [email or web address] 825 Dictated By: Robin Mccall M.D. Electronically Signed By: Robin Mccall M.D. Date Signed: 02/23/06 KIMBER[place] us Kev Begum MD US ORDERABLES Final Result * XR CHEST PA AND LATERAL (02/21/2006 12:51 PM CDT) Anatomical Region Laterality Modality Chest Other 02/21/2006 12:5 1 PM CDT Narrative 02/21/2006 12:51 PM CDT CHEST, TWO VIEWS: HISTORY: Fever. Two views are submitted. There is some density adjacent to the left heart border on the PA view. No definite lobar infiltrate in the lateral film, but it appears there may be some linear atelectasis or scarring in the lingula. Otherwise, there is no infiltrate or effusion. The lungs are hyperinflated. IMPRESSION: Probable atelectasis or scarring in the lingula, otherwise no active pulmonary disease. [facility] D: 02-21-06 [id number] Dictated By: Daily Luong M.D. Electronically Signed By: Daily Luong M.D. Date Signed: 02/21/06 Procedure Note 07/20/2009 CHEST, TWO VIEWS: HISTORY: Fever. Two views are submitted. There is some density adjacent to the left heartborder on the PA view. No definite lobar infiltrate in the lateral film, but it appears there may besome linear atelectasis or scarring in the lingula. Otherwise, there is no infiltrate or effusion.The lungs are hyperinflated. IMPRESSION: Probable atelectasis or scarring in the lingula, otherwise no activepulmonary disease. [facility] D: 02-21-06 0843 Dictated By: Daily Luong M.D. Electronically Signed By: Daily Luong M.D. Date Signed: 02/21/06 Shane Cason MD DIAGNOSTIC IMAGING ORDERAB LES Final Result * EHRLICHIA BY PCR (02/21/2006 11:18 AM CDT) EHRLICHIA BY PCR See Sep Report INTERFACE SYSTEM 02/21/2006 11:1 8 AM CDT Shane Cason MD CHEMISTRY ORDERABLES Final Result Performing Organization Address [facility] de Phone Number INTERFACE SYSTEM Refer to clinic/hospital department * RICKETTSIA RICKETTSII IGG/IGM ABS (02/21/2006 11:18 AM CDT) RMSF AB See Sep Report INTERFACE SYSTEM 02/21/2006 11:1 8 AM CDT Shane Cason MD CHEMISTRY ORDERABLES Final Result Performing Organization Address City/[facility] Co de Phone Number INTERFACE SYSTEM Refer to clinic/hospital department * LYME AB IGG/IGM (02/21/2006 11:18 AM CDT) LYME ANTIBODY (EIA) See Sep Report INTERFACE SYSTEM 02/21/2006 11:1 8 AM CDT Result [facility] Shane Cason MD CHEMISTRY ORDERABLES COM F inal Result Performing Organization Address [facility] Phone Number INTERFACE SYSTEM Refer to clinic/hospital department * RAPID STREP SCREEN WITH REFLEX CULTURE (02/21/2006 10:21 AM CDT) RAPID STREP SCREEN WITH REFLEX CULTURE Negative Negative INTERFACE SYSTEM 02/21/2006 10:2 1 AM CDT Shaen Cason MD MICROBIOLOGY - GENERAL ORD ERABLES Final Result Performing Organization Address [facility] Phone Number INTERFACE SYSTEM Refer to clinic/hospital department * SPINAL FLUID CELL COUNT (02/21/2006 9:38 AM CDT) COLOR, CSF Colorless Colorless INTERFACE SYSTEM APPEARANCE, CSF Clear Clear INTE RFACE SYSTEM WBC, CSF 0 0 - 5 /mm3 INTERFACE SYSTEM RBC, CSF 0 0 - 0 /mm3 INTERFACE SYSTEM ADD'NL COMMENT, CSF INTERFACE SYSTEM Comment: Differential performed on concentrated CSF.SEE COMMENT LYMPHOCYTES, CSF 86 % INT ERFACE SYSTEM MONOCYTES/ HISTIOCYTES, CSF 14 % INTERFACE SYSTEM 02/21/2006 9:38 AM CDT Shane Cason MD BODY FLUIDS AND STOOLS Fin al Result Performing Organization Address [facility] Phone Number INTERFACE SYSTEM Refer to clinic/hospital department * TOTAL PROTEIN, CSF (02/21/2006 9:38 AM CDT) PROTEIN, CSF 37 15 - 45 mg/dL INTERFACE SYSTEM Comment: As of 05 the [facility] has changed testing methods. The new reference range is 15-45 The old referance range was 12-60 02/21/2006 9:38 AM CDT Shane Cason MD BODY FLUIDS AND STOOLS Fin al Result Performing Organization Address [facility] de Phone Number INTERFACE SYSTEM Refer to clinic/hospital department * GLUCOSE, CSF (02/21/2006 9:38 AM CDT) GLUCOSE, CSF 63 40 - 70 mg/dL INTERFACE SYSTEM 02/21/2006 9:38 AM CDT Shane Cason MD BODY FLUIDS AND STOOLS Fin al Result Performing Organization Address [facility] Co de Phone Number INTERFACE SYSTEM Refer to clinic/hospital department * URINALYSIS MICROSCOPY ONLY (02/21/2006 8:10 AM CDT) WBC URINE None Seen 0 - 2 INTERFACE SYSTEM RBC UA 0-2 0 - 2 INTERFACE SYSTEM HYALINE CAST None Seen 0 - 2 INTERFA CE SYSTEM BACTERIA UA None Seen None Seen INTERFAC E SYSTEM 02/21/2006 8:10 AM CDT Shane Cason MD URINE ORDERABLES Final Res ult Performing Organization Address [facility] de Phone Number INTERFACE SYSTEM Refer to clinic/hospital department * (ABNORMAL) ACETONE QUALITATIVE, URINE (02/21/2006 8:10 AM CDT) KETONES UA Moderate(A ) Negative INTERFACE SYSTEM 02/21/2006 8:10 AM CDT Shane Cason MD URINE ORDERABLES Final Res ult Performing Organization Address [facility] de Phone Number INTERFACE SYSTEM Refer to clinic/hospital department * (ABNORMAL) URINALYSIS (02/21/2006 8:10 AM CDT) COLOR UA Yellow Straw INTERFACE SYSTEM CLARITY UA Clear Clear INTERFACE SYSTEM LEUKOCYTE ESTERASE UA NEGATIVE NEGATIVE INTERFACE SYSTEM NITRITE UA NEGATIVE NEGATIVE INTERFACE SYSTEM PH UA 6.5 5.0 - 9.0 INTERFACE SYSTEM PROTEIN UA Trace(A) NEGATIVE INTERFACE SYSTEM Comment: As of 05 positive protein results obtained on routine urinalysis will not be confirmed by sulfosalicylic acid (SSA) precipitation. Current methodology for protein detection is highly sensitive for detection of albumin; therefore, confirmation is not necessary. GLUCOSE UA NEGATIVE NEGATIVE INTERFACE SYSTEM UROBILINOGEN UA 4.0(A) 0.2 INTE RFACE SYSTEM BILIRUBIN UA NEGATIVE NEGATIVE INTERFA CE SYSTEM BLOOD UA NEGATIVE NEGATIVE INTERFACE SYSTEM SPECIFIC GRAVITY UA 1.020 1.005 - 1.030 INTERFACE SYSTEM MICRO EXAM Yes(A) No INTERFACE SYSTEM 02/21/2006 8:10 AM CDT Shane Cason MD URINE ORDERABLES Final Res ult Performing Organization Address [facility]/ZIP Co de Phone Number INTERFACE SYSTEM Refer to clinic/hospital department * (ABNORMAL) CBC WITH DIFFERENTIAL (02/21/2006 7:47 AM CDT) WBC 3.3(L) 4.8 - 10.8 K/ul INTERFACE SYSTEM RBC 4.43 4.20 - 5.40 Mil/ul INTERFACE SYSTEM HEMOGLOBIN 14.2 12.0 - 16.0 g/dL INTERFACE SYSTEM HEMATOCRIT 40.2 36.0 - 46.0 % INTERFACE SYSTEM MCV 90.7 84.0 - 103.0 Fl INTERFACE SYSTEM MCH 32.1 27.0 - 34.0 pg INTERFACE SYSTEM MCHC 35.3(H) 30.0 - 35.0 g/dL INTERFACE SYSTEM RDW 12.2 11.0 - 14.5 % INTERFACE SYSTEM PLATELETS 99(L) 140 - 440 K/ul INTERFACE SYSTEM MPV 9.5 8.9 - 12.8 Fl INTERFACE SYSTEM NEUTROPHILS 72.4 42.2 - 75.2 % INTERFACE SYSTEM LYMPHOCYTES 23.4(L) 24.0 - 44.0 % INTERFACE SYSTEM MONOCYTES 3.6 2.0 - 10.0 % INTERFA CE SYSTEM BASOPHILS 0.6 0.0 - 1.0 % INTERFAC E SYSTEM NEUTROPHIL ABSOLUTE 2.4 2.0 - 8.0 K/uL INTERFACE SYSTEM LYMPHOCYTE ABSOLUTE 0.8(L) 1.2 - 4.0 K/ul INTERFACE SYSTEM MONOCYTE ABSOLUTE 0.1 0.1 - 0.6 K/ul INTERFACE SYSTEM BASOPHILS ABSOLUTE 0.0 0.0 - 0.2 K/ul INTERFACE SYSTEM PERIPHERAL BLOOD SMEAR REVIEW Smear Reviewed Automated Diff INTERFACE SYSTEM 02/21/2006 7:47 AM CDT Shane Cason MD HEMATOLOGY ORDERABLES Adelaida l Result INTERFACE SYSTEM Refer to clinic/hospital department * (ABNORMAL) COMPREHENSIVE METABOLIC PANEL (02/21/2006 7:46 AM CDT) GLUCOSE 106 70 - 110 mg/dL INTERFACE SYSTEM BUN 7 7 - 17 mg/dL INTERFACE SYSTEM CREATININE 0.7 0.7 - 1.2 mg/dL INTERFACE SYSTEM SODIUM 126(L) 136 - 145 mEq/L INTERFACE SYSTEM POTASSIUM 3.7 3.5 - 5.0 mEq/L INTERFACE SYSTEM CHLORIDE 93(L) 95 - 110 mEq/L INTERFACE SYSTEM CO2 21(L) 22 - 32 mmol/l INTERFACE SYSTEM ANION GAP 16 9 - 20 mEq/L INTERFACE SYSTEM OSMOLALITY, CALCULATED 260(L) 275 - 295 mOsm/Kg INTERFACE SYSTEM CALCIUM 8.9 8.4 - 10.5 mg/dL INTERFACE SYSTEM TOTAL PROTEIN 6.7 6.3 - 8.2 g/dL INTERFACE SYSTEM ALBUMIN 4.0 3.5 - 5.0 g/dL INTERFACE SYSTEM GLOBULIN (CALC) 2.7 2.4 - 3.9 g/dL INTERFACE SYSTEM ALBUMIN/GLOBULIN RATIO 1.5 1.0 - 2.3 INTERFACE SYSTEM ALKALINE PHOSPHATASE 157(H) 25 - 100 U/L INTERFACE SYSTEM Comment: As of 05 the [facility] has changed testing methods. The new reference range is 25-100 The old referance range was 38-126 AST 267(H) 8 - 33 U/L INTERFACE SYSTEM Comment: As of 05 the [facility] has changed testing methods. The new reference range is 8-33 The old referance range was Males 17-59 Females 14-36 ALT 276(H) 4 - 36 IU/L INTERFACE SYSTEM Comment: As of 05 the [facility] has changed testing methods. The new reference range is 4-36 The old referance range was Males 21-72 Females 9-52 BILIRUBIN TOTAL 0.8 0.3 - 1.2 mg/dL INTERFACE SYSTEM Comment: As of 05 the [facility] has changed testing methods. The new reference range is 0.3-1.2 The old referance range was 0.2-1.4 02/21/2006 7:46 AM CDT us Shane Cason MD CHEMISTRY ORDERABLES Final Result INTERFACE SYSTEM Refer to clinic/hospital department documented in this encounter Visit Diagnoses Diagnosis Thrombocytopenia, unspecified- Primary documented in this encounter Care Teams Casual Shoe Inspector Relationship Specialty Start Date End Date Kev Begum MD [address] [facility] [address] [place] [address] PCP - General 08/30/02 documented as of this encounter
--- OUTSIDE RECORDS SUMMARY | 2025-03-12 09:10 | XMS_ITS | Encounter Summary ---
Author Organization [facility] Address [address] [place]: [place] [address] Care Team Providers Care Floral Designer Salesperson Name Role Phone Kev Begum MD Primary Care Provider [phone] Encounter Details Date Type Department Care Team (Late st Contact Info) Description 03/24/2000 Outpatient Historical Kev Begum MD [address] [place] [address] Social History Tobacco Use Types Packs/Day Years Used Date Smoking Tobacco: Never Assessed Comments Unknown Sex and Gender Information Value Date Recorded Sex Assigned at Not on file Legal Sex Female 5:07 AM ROOF SHINGLER Gender Identity Not on file Sexual Orientation Not on file documented as of this encounter Plan of Treatment Not on file documented as of this encounter Visit Diagnoses Not on filedocumented in this encounter Care Teams Floral Designer Salesperson Relationship Specialty Start Date End Date Kev Begum MD [address] [place] [address] PCP - General 08/30/02 documented as of this encounter
--- OUTSIDE RECORDS SUMMARY | 2025-03-12 09:10 | XMS_ITS | Encounter Summary ---
Author Organization [facility] Address [address] [place] [address] Care Team Providers Care Coring Machine Operator Name Role Phone Kev Begum MD Primary Care Provider [phone] Encounter Details Date Type Department Care Team (Latest Contact Info) Description 09/16/2005 Outpatient Historical [facility] Orthopedics- [address] [place] [phone] Orville Brown MD [address] [facility] [address] [place] [address] JOINT PAIN-ANKLE (Primary Dx); STRESS FRACTURE NEC Social History Tobacco Use Types Packs/Day Years Used Date Smoking Tobacco: Never Assessed Comments Unknown Sex and Gender Information Value Date Recorded Sex Assigned at Not on file Legal Sex Female 5:07 AM DAIRY HAND Gender Identity Not on file Sexual Orientation Not on file documented as of this encounter Plan of Treatment Not on file documented as of this encounter Visit Diagnoses Diagnosis Pain in joint, ankle and foot- Primary Stress fracture of other bone documented in this encounter Care Teams Coring Machine Operator Relationship Specialty Start Date End Date Kev Begum MD [address] [facility] [address] [place] [address] PCP - General 08/30/02 documented as of this encounter
--- OUTSIDE RECORDS SUMMARY | 2025-03-12 09:10 | XMS_ITS | Encounter Summary ---
Author Organization [facility] Address [address] [place] [address] Care Team Providers Care Detasseler Name Role Phone Kev Begum MD Primary Care Provider [phone] Encounter Details Date Type Department Care Team (Latest Contact Info) Description 01/19/1998 Outpatient Historical [facility] OBGYN-[place] [address] [place] [address] Sonali Whitehead MD [address] [facility] [place] [address] Psychosexual dysfunction, unspecified (Primary Dx); Supervision of other normal ; Vaginitis and vulvovaginitis, unspecified Social History Tobacco Use Types Packs/Day Years Used Date Smoking Tobacco: Never Assessed Comments Unknown Sex and Gender Information Value Date Recorded Sex Assigned at Not on file Legal Sex Female 5:07 AM SILK EXAMINER Gender Identity Not on file Sexual Orientation Not on file documented as of this encounter Plan of Treatment Not on file documented as of this encounter Visit Diagnoses Diagnosis Psychosexual dysfunction, unspecified- Primary Supervision of other normal Vaginitis and vulvovaginitis, unspecified documented in this encounter Care Teams Detasseler Relationship Specialty Start Date End Date Kev Begum MD [address] [place] [address] PCP - General 08/30/02 documented as of this encounter
--- OUTSIDE RECORDS SUMMARY | 2025-03-12 09:10 | XMS_ITS | Encounter Summary ---
Author Organization [facility] Address [address] [place] [address] Care Team Providers Care Lottery Sales Clerk Name Role Phone Kev Begum MD Primary Care Provider [phone] Encounter Details Date Type Department Care Team (Latest Contact Info) Description 08/19/[address] 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
--- OUTSIDE RECORDS SUMMARY | 2025-03-12 09:10 | XMS_ITS | Encounter Summary ---
Author Organization [facility] Address [address] [place] [address] Care Team Providers Care Harvest Supervisor Name Role Phone Kev Begum MD Primary Care Provider [phone] Encounter Details Date Type Department Care Team (Latest Contact Info) Description 08/19/2005 Outpatient Historical [facility] Orthopedics- [address] [place] [address] Orville Brown MD [address] [facility] [address] [place] [address] JOINT PAIN-ANKLE (Primary Dx); Plantar fibromatosis; STRESS FRACTURE NEC Social History Tobacco Use Types Packs/Day Years Used Date Smoking Tobacco: Never Assessed Comments Unknown Sex and Gender Information Value Date Recorded Sex Assigned at Not on file Legal Sex Female 5:07 AM LAUNDRY MARKER SUPERVISOR Gender Identity Not on file Sexual Orientation Not on file documented as of this encounter Plan of Treatment Not on file documented as of this encounter Visit Diagnoses Diagnosis Pain in joint, ankle and foot- Primary Plantar fibromatosis Plantar fascial fibromatosis Stress fracture of other bone documented in this encounter Care Teams Harvest Supervisor Relationship Specialty Start Date End Date Kev Begum MD [address] [facility] [address] [place] [address] PCP - General 08/30/02 documented as of this encounter
--- OUTSIDE RECORDS SUMMARY | 2025-03-12 09:10 | XMS_ITS | Encounter Summary ---
Author Organization [facility] Address [address] [place] [address] Care Team Providers Care Cap Jewel Plate Assembler Name Role Phone Kev Begum MD Primary Care Provider [phone] Encounter Details Date Type Department Care Team (Late st Contact Info) Description 08/29/2005 Outpatient [facility] Int [facility] [address] [place] [address] Kev Begum MD [address] [place] [address] ABNORMAL LIVER FUNCTION STUDY (Primary Dx); OSTEOPOROSIS NOS; PERS HX MALIG SKIN MELANOMA; SCREENING MAL NEOP-CERVIX Social History Tobacco Use Types Packs/Day Years Used Date Smoking Tobacco: Never Assessed Comments Unknown Sex and Gender Information Value Date Recorded Sex Assigned at Not on file Legal Sex Female 5:07 AM SITE INSPECTOR Gender Identity Not on file Sexual Orientation Not on file documented as of this encounter Plan of Treatment Not on file documented as of this encounter Visit Diagnoses Diagnosis Nonspecific abnormal results of liver function study- Primary Osteoporosis, unspecified Personal history of malignant melanoma of skin Screening for malignant neoplasm of the cervix documented in this encounter Care Teams Cap Jewel Plate Assembler Relationship Specialty Start Date End Date Kev Begum MD [address] [place] [address] PCP - General 08/30/02 documented as of this encounter
--- OUTSIDE RECORDS SUMMARY | 2025-03-12 09:10 | XMS_ITS | Encounter Summary ---
Author Organization [facility] Address [address] [place] [address] Care Team Providers Care Auto Glass Worker Name Role Phone Kev Begum MD Primary Care Provider Encounter Details Date Type Department Care Team (Late st Contact Info) Description 04/26/2003 Outpatient [facility] Int [facility] [address] [place] [address] Kev Begum MD [address] [place] [address] ABNORMAL LIVER FUNCTION STUDY (Primary Dx); IRON DEFIC ANEMIA NOS Social History Tobacco Use Types Packs/Day Years Used Date Smoking Tobacco: Never Assessed Comments Unknown Sex and Gender Information Value Date Recorded Sex Assigned at Not on file Legal Sex Female 5:07 AM SUPERVISOR DRYING Gender Identity Not on file Sexual Orientation Not on file documented as of this encounter Plan of Treatment Not on file documented as of this encounter Visit Diagnoses Diagnosis Nonspecific abnormal results of liver function study- Primary Iron deficiency anemia, unspecified documented in this encounter Care Teams Auto Glass Worker Relationship Specialty Start Date End Date Kev Begum MD [address] [place] [address] PCP - General 08/30/02 documented as of this encounter
--- OUTSIDE RECORDS SUMMARY | 2025-03-12 09:10 | XMS_ITS | Encounter Summary ---
Author Organization [facility] Address [address] [place] [address] Care Team Providers Care Golf Superintendent Name Role Phone Kev Begum MD Primary Care Provider [phone] Encounter Details Date Type Department Care Team (Latest Contact Info) Description 02/26/2006 Outpatient Historical [facility] Imaging Services-[place] [place] [address] Latha Cardoso MD [address] [place] [address] Other Emphysema (CMS/HCC) (Primary Dx) Social History Tobacco Use Types Packs/Day Years Used Date Smoking Tobacco: Never Assessed Comments Unknown Sex and Gender Information Value Date Recorded Sex Assigned at Not on file Legal Sex Female 5:07 AM CORE WINDER MACHINE 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
--- OUTSIDE RECORDS SUMMARY | 2025-03-12 09:10 | XMS_ITS | Encounter Summary ---
Author Organization [facility] Address [address] [place] [address] Care Team Providers Care Technology Coach Name Role Phone Kev Begum MD Primary Care Provider [phone] Encounter Details Date Type Department Care Team (Late st Contact Info) Description 01/17/2000 Outpatient Historical [facility] OBGYN-[place] [address] [place] [address] Sonali Whitehead MD [address] [facility] [place] [address] Observ-suspect cond NEC (Primary Dx); Postmenopausal bleeding Social History Tobacco Use Types Packs/Day Years Used Date Smoking Tobacco: Never Assessed Comments Unknown Sex and Gender Information Value Date Recorded Sex Assigned at Not on file Legal Sex Female 5:07 AM FLOAT PHLEBOTOMIST Gender Identity Not on file Sexual Orientation Not on file documented as of this encounter Plan of Treatment Not on file documented as of this encounter Visit Diagnoses Diagnosis Observ-suspect cond NEC- Primary Observation and evaluation for other specified suspected conditions Postmenopausal bleeding documented in this encounter Care Teams Technology Coach Relationship Specialty Start Date End Date Kev Begum MD [address] [place] [address] PCP - General 08/30/02 documented as of this encounter
--- OUTSIDE RECORDS SUMMARY | 2025-03-12 09:10 | XMS_ITS | Encounter Summary ---
Author Organization [facility] Address [address] [place] [address] Care Team Providers Care Cloud Systems Administrator Name Role Phone Kev Begum MD Primary Care Provider [phone] Encounter Details Date Type Department Care Team (Latest Contact Info) Description 03/12/1999 Outpatient Historical [facility] Brant Durán MD [address] [place] [address] Screening for malignant neoplasm of the rectum (Primary Dx) Social History Tobacco Use Types Packs/Day Years Used Date Smoking Tobacco: Never Assessed Comments Unknown Sex and Gender Information Value Date Recorded Sex Assigned at Not on file Legal Sex Female 5:07 AM SUBSTATION MANAGER Gender Identity Not on file Sexual Orientation Not on file documented as of this encounter Plan of Treatment Not on file documented as of this encounter Visit Diagnoses Diagnosis Screening for malignant neoplasm of the rectum- Primary documented in this encounter Care Teams Cloud Systems Administrator Relationship Specialty Start Date End Date Kev Begum MD [address] [facility] [address] [place] [address] PCP - General 08/30/02 documented as of this encounter
--- OUTSIDE RECORDS SUMMARY | 2025-03-12 09:10 | XMS_ITS | Encounter Summary ---
Author Organization [facility] Address [address] [place] [address] Care Team Providers Care Hvac Lead Name Role Phone Kev Begum MD Primary Care Provider [phone] Encounter Details Date Type Department Care Team (Late st Contact Info) Description 04/26/2003 Outpatient Historical [facility] OBGYN-[place] [place] [address] Sonali Whitehead MD [address] [facility] [place] [address] Routine medical exam (Primary Dx); Gynecologic examination; SCREENING MAL NEOP-RECTUM Social History Tobacco Use Types Packs/Day Years Used Date Smoking Tobacco: Never Assessed Comments Unknown Sex and Gender Information Value Date Recorded Sex Assigned at Not on file Legal Sex Female 5:07 AM MODEL AND MOLD MAKER Gender Identity Not on file Sexual Orientation Not on file documented as of this encounter Plan of Treatment Not on file documented as of this encounter Visit Diagnoses Diagnosis Routine medical exam- Primary Routine general medical examination at a health care facility Gynecologic examination Gynecological examination Screening for malignant neoplasm of the rectum documented in this encounter Care Teams Hvac Lead Relationship Specialty Start Date End Date Kev Begum MD [address] [facility] [address] [place] [address] PCP - General 08/30/02 documented as of this encounter
--- OUTSIDE RECORDS SUMMARY | 2025-03-12 09:10 | XMS_ITS | Encounter Summary ---
Author Organization [facility] Address [address] [place] [address] Care Team Providers Care Cash Management Specialist Name Role Phone Kev Begum MD Primary Care Provider [phone] Encounter Details Date Type Department Care Team (Latest Contact Info) Description 10/04/1998 Outpatient Historical [facility] Brant Durán MD [address] [place] [address] Peptic ulcer, unspecified site, unspecified as acute or chronic, without mention of hemorrhage, perforation, or obstruction (Primary Dx) Social History Tobacco Use Types Packs/Day Years Used Date Smoking Tobacco: Never Assessed Comments Unknown Sex and Gender Information Value Date Recorded Sex Assigned at Not on file Legal Sex Female 5:07 AM SOFTWARE SALES MANAGER Gender Identity Not on file Sexual Orientation Not on file documented as of this encounter Plan of Treatment Not on file documented as of this encounter Visit Diagnoses Diagnosis Peptic ulcer, unspecified site, unspecified as acute or chronic, without mention of hemorrhage, perforation, or obstruction- Primary documented in this encounter Care Teams Cash Management Specialist Relationship Specialty Start Date End Date Kev Begum MD [address] [phone] PCP - General 08/30/02 documented as of this encounter
--- OUTSIDE RECORDS SUMMARY | 2025-03-12 09:10 | XMS_ITS | Encounter Summary ---
Author Organization [facility] Address [address] [place] [address] Care Team Providers Care Furniture Finisher Name Role Phone Kev Begum MD Primary Care Provider [phone] Encounter Details Date Type Department Care Team (Latest Contact Info) Description 03/14/[address] [facility] Podiatry[facility] Keegan [address] [place] [address] Los Humphreys DPM NO ADDRESS ON FILE Acquired keratoderma (Primary Dx); Dermatophytosis of nail; Bunion Social History Tobacco Use Types Packs/Day Years Used Date Smoking Tobacco: Never Assessed Comments Unknown Sex and Gender Information Value Date Recorded Sex Assigned at Not on file Legal Sex Female 5:07 AM ON SITE SERVICES SPECIALIST Gender Identity Not on file Sexual Orientation Not on file documented as of this encounter Plan of Treatment Not on file documented as of this encounter Visit Diagnoses Diagnosis Acquired keratoderma- Primary Dermatophytosis of nail Bunion documented in this encounter Care Teams Furniture Finisher Relationship Specialty Start Date End Date Kev Begum MD [address] [place] [address] PCP - General 08/30/02 documented as of this encounter
--- OUTSIDE RECORDS SUMMARY | 2025-03-12 09:10 | XMS_ITS | Encounter Summary ---
Author Organization [facility] Address [address] [place] [address] Care Team Providers Care Prepared Foods Production Team Member Name Role Phone Kev Begum MD Primary Care Provider [phone] Encounter Details Date Type Department Care Team (Late st Contact Info) Description 03/21/[address] [facility] [address] [facility] [address] [place] [address] Adelaide Ramos MD NO ADDRESS ON FILE Other specified personal history presenting hazards to health(V15.89) (Primary Dx) Social History Tobacco Use Types Packs/Day Years Used Date Smoking Tobacco: Never Assessed Comments Unknown Sex and Gender Information Value Date Recorded Sex Assigned at Not on file Legal Sex Female 5:07 AM DIRECTOR INBOUND SALES Gender Identity Not on file Sexual Orientation Not on file documented as of this encounter Plan of Treatment Not on file documented as of this encounter Visit Diagnoses Diagnosis Other specified personal history presenting hazards to health(V15.89)- Primary Other specified personal history presenting hazards to health documented in this encounter Care Teams Prepared Foods Production Team Member Relationship Specialty Start Date End Date Kev Begum MD [address] [place] [phone] PCP - General 08/30/02 documented as of this encounter
--- OUTSIDE RECORDS SUMMARY | 2025-03-12 09:10 | XMS_ITS | Encounter Summary ---
Author Organization [facility] Address [address] [place] [address] Care Team Providers Care Office Mail Clerk Name Role Phone Kev Begum MD Primary Care Provider [phone] Encounter Details Date Type Department Care Team (Late st Contact Info) Description 12/08/1998 Outpatient Historical [facility] Int [facility] [address] [place] [address] Kev Begum MD [address] [place] [address] Myalgia and myositis, unspecified (Primary Dx) Social History Tobacco Use Types Packs/Day Years Used Date Smoking Tobacco: Never Assessed Comments Unknown Sex and Gender Information Value Date Recorded Sex Assigned at Not on file Legal Sex Female 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
--- OUTSIDE RECORDS SUMMARY | 2025-03-12 09:10 | XMS_ITS | Encounter Summary ---
Author Organization [facility] Address [address] [place] [address] Care Team Providers Care Infection Control Nurse Name Role Phone Kev Begum MD Primary Care Provider [phone] Encounter Details Date Type Department Care Team (Late st Contact Info) Description 09/21/1998 Outpatient [facility] Int [facility] [address] [place] [address] Kev Begum MD [address] [place] [address] Tachypnea (Primary Dx) Social History Tobacco Use Types Packs/Day Years Used Date Smoking Tobacco: Never Assessed Comments Unknown Sex and Gender Information Value Date Recorded Sex Assigned at Not on file Legal Sex Female 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
--- OUTSIDE RECORDS SUMMARY | 2025-03-12 09:10 | XMS_ITS | Encounter Summary ---
Author Organization [facility] Address [address] [place] [address] Care Team Providers Care Land Appraiser Name Role Phone Kev Begum MD Primary Care Provider [phone] Encounter Details Date Type Department Care Team (Late st Contact Info) Description 01/23/1999 Outpatient Historical [facility] OBGYN-Warren Starr Ke[address] [place] [address] Sonali Whitehead MD [address] [facility] [place] [address] Gynecologic examination (Primary Dx) Social History Tobacco Use Types Packs/Day Years Used Date Smoking Tobacco: Never Assessed Comments Unknown Sex and Gender Information Value Date Recorded Sex Assigned at Not on file Legal Sex Female 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
--- OUTSIDE RECORDS SUMMARY | 2025-03-12 09:10 | XMS_ITS | Encounter Summary ---
Author Organization [facility] Address [address] [place] [address] Care Team Providers Care Master Control Technician Name Role Phone Kev Begum MD Primary Care Provider [phone] Encounter Details Date Type Department Care Team (Latest Contact Info) Description 08/13/1999 Outpatient Historical [facility] Brant Durán MD [address] [place] [address] Abdominal pain, unspecified site (Primary Dx) Social History Tobacco Use Types Packs/Day Years Used Date Smoking Tobacco: Never Assessed Comments Unknown Sex and Gender Information Value Date Recorded Sex Assigned at Not on file Legal Sex Female 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
--- OUTSIDE RECORDS SUMMARY | 2025-03-12 09:10 | XMS_ITS | Encounter Summary ---
Author Organization [facility] Address [address] [place] [address] Care Team Providers Care Risk Management Internship Name Role Phone Kve Begum MD Primary Care Provider [phone] Encounter Details Date Type Department Care Team (Late st Contact Info) Description 04/26/[address] [facility] Beckwith Ke[address] 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
--- OUTSIDE RECORDS SUMMARY | 2025-03-12 09:10 | XMS_ITS | Encounter Summary ---
Author Organization [facility] Address [address] [place] [address] Care Team Providers Care Brass Molder Helper Name Role Phone Kev Begum MD Primary Care Provider [phone] Encounter Details Date Type Department Care Team (Late st Contact Info) Description 08/30/2005 Outpatient Historical [facility] Imaging Services-Kelvin Beckwith Ke[address] [place] [address] Kev Begum MD [address] [place] [address] Social History Tobacco Use Types Packs/Day Years Used Date Smoking Tobacco: Never Assessed Comments Unknown Sex and Gender Information Value Date Recorded Sex Assigned at Not on file Legal 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
--- OUTSIDE RECORDS SUMMARY | 2025-03-12 09:10 | XMS_ITS | Encounter Summary ---
Author Organization [facility] Address [address] [place] [address] Care Team Providers Care Addiction Professional Name Role Phone Kev Begum MD Primary Care Provider [phone] Encounter Details Date Type Department Care Team (Latest Contact Info) Description 08/23/1997 Outpatient Historical [facility] [address] [place] [address] Los Humphreys DPM NO ADDRESS ON FILE Other hammer toe (acquired) (Primary Dx) Social History Tobacco Use Types Packs/Day Years Used Date Smoking Tobacco: Never Assessed Comments Unknown Sex and Gender Information Value Date Recorded Sex Assigned at Not on file Legal 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
--- OUTSIDE RECORDS SUMMARY | 2025-03-12 09:10 | XMS_ITS | Encounter Summary ---
Author Organization [facility] Address [address] [place] [address] Care Team Providers Care Tester Operator Name Role Phone Kev Begum MD Primary Care Provider [phone] Encounter Details Date Type Department Care Team (Latest Contact Info) Description 02/26/2006 Outpatient [facility] Int [facility] [address] [place] [address] Latha Cardoso MD [address] [place] [address] Unspecified ehrlichiosis (Primary Dx); Classical Migraine without Mention of Intractable Migraine; Other Nonspecific Abnormal Serum Enzyme Levels Social History Tobacco Use Types Packs/Day Years Used Date Smoking Tobacco: Never Assessed Comments Unknown Sex and Gender Information Value Date Recorded Sex Assigned at Not on file Legal Sex Female 5:07 AM DIRECT OF REAL ESTATE Gender Identity Not on file Sexual Orientation Not on file documented as of this encounter Plan of Treatment Not on file documented as of this encounter Visit Diagnoses Diagnosis Unspecified ehrlichiosis- Primary Ehrlichiosis, unspecified Migraine with aura, without mention of intractable migraine without mention of status migrainosus Other nonspecific abnormal serum enzyme levels documented in this encounter Care Teams Tester Operator Relationship Specialty Start Date End Date Kev Begum MD [address] [place] [address] PCP - General 12/30/02 documented as of this encounter
--- OUTSIDE RECORDS SUMMARY | 2025-03-12 09:10 | XMS_ITS | Encounter Summary ---
Author Organization [facility] Address [address] [place] [address] Care Team Providers Care Machine Pie Maker Name Role Phone Kev Begum MD Primary Care Provider [phone] Encounter Details Date Type Department Care Team (Late st Contact Info) Description 08/30/2005 Outpatient Historical [facility] Imaging Services-Kelvin Beckwith Ke[address] [place] [address] Kev Begum MD [address] [place] [address] ABN BLOOD CHEMISTRY NEC (Primary Dx) Social History Tobacco Use Types Packs/Day Years Used Date Smoking Tobacco: Never Assessed Comments Unknown Sex and Gender Information Value Date Recorded Sex Assigned at Not on file Legal Sex Female 5:07 AM ENGINEER SYSTEMS Gender Identity Not on file Sexual Orientation Not on file documented as of this encounter Plan of Treatment Not on file documented as of this encounter Visit Diagnoses Diagnosis Other abnormal blood chemistry- Primary documented in this encounter Care Teams Machine Pie Maker Relationship Specialty Start Date End Date Kev Begum MD [address] [place] [address] PCP - General 08/30/02 documented as of this encounter
--- OUTSIDE RECORDS SUMMARY | 2025-03-12 09:10 | XMS_ITS | Encounter Summary ---
Author Organization [facility] Address [address] [place] [address] Care Team Providers Care Positive Printer Operator Name Role Phone Kev Begum MD Primary Care Provider [phone] Encounter Details Date Type Department Care Team (Late st Contact Info) Description 08/29/2005 Outpatient Historical [facility] Kelvin Beckwith Ke[address] [place] [address] Kev Begum MD [address] [place] [address] SCREENING MAMM-MAILG NEOPL NEC (Primary Dx) Social History Tobacco Use Types Packs/Day Years Used Date Smoking Tobacco: Never Assessed Comments Unknown Sex and Gender Information Value Date Recorded Sex Assigned at Not on file Legal Sex Female 5:07 AM CHIEF RISK OFFICER Gender Identity Not on file Sexual Orientation Not on file documented as of this encounter Plan of Treatment Not on file documented as of this encounter Visit Diagnoses Diagnosis Other screening mammogram- Primary documented in this encounter Care Teams Positive Printer Operator Relationship Specialty Start Date End Date Kev Begum MD [address] [place] [address] PCP - General 08/30/02 documented as of this encounter
--- OUTSIDE RECORDS SUMMARY | 2025-03-12 09:10 | XMS_ITS | Encounter Summary ---
Author Organization [facility] Address [address] [place] [address] Care Team Providers Care Technical Service Engineer Name Role Phone Kev Begum MD Primary Care Provider [phone] Encounter Details Date Type Department Care Team (Late st Contact Info) Description 08/14/2005 Outpatient Historical [facility] Imaging Services [place] [address] [place] [address] Social History Tobacco Use Types Packs/Day Years Used Date Smoking Tobacco: Never Assessed Comments Unknown Sex and Gender Information Value Date Recorded Sex Assigned at Not on file Legal Sex Female 5:07 AM FACING BASTER JUMPBASTING Gender Identity Not on file Sexual Orientation Not on file documented as of this encounter Plan of Treatment Not on file documented as of this encounter Visit Diagnoses Not on filedocumented in this encounter Care Teams Technical Service Engineer Relationship Specialty Start Date End Date Kev Begum MD [address] [facility] [address] [place] [address] PCP - General 08/30/02 documented as of this encounter
--- OUTSIDE RECORDS SUMMARY | 2025-03-12 09:10 | XMS_ITS | Encounter Summary ---
Author Organization [facility] Address [address] [place] [address] Care Team Providers Care Dance Studio Manager Name Role Phone Kev Begum MD Primary Care Provider [phone] Encounter Details Date Type Department Care Team (Latest Contact Info) Description 09/11/2006 Outpatient [facility] Podiatry-Warren Tang Ke[address] [place] [address] Los Humphreys DPM NO ADDRESS ON FILE Enthesopathy of Unspecified Site (Primary Dx); Pain in Limb; Plantar Fibromatosis; Difficulty in Walking Social History Tobacco Use Types Packs/Day Years Used Date Smoking Tobacco: Never Assessed Comments Unknown Sex and Gender Information Value Date Recorded Sex Assigned at Not on file Legal Sex Female 5: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 Gender Identity Not on file Sexual Orientation Not on file documented as of this encounter Plan of Treatment Not on file documented as of this encounter Visit Diagnoses Diagnosis Enthesopathy of unspecified site- Primary Pain in limb Pain in soft tissues of limb Plantar fibromatosis Plantar fascial fibromatosis Difficulty in walking(719.7) Difficulty in walking documented in this encounter Care Teams Dance Studio Manager Relationship Specialty Start Date End Date Kev Begum MD [address] [place] [phone] PCP - General 08/30/02 documented as of this encounter
--- OUTSIDE RECORDS SUMMARY | 2025-03-12 09:10 | XMS_ITS | Encounter Summary ---
Author Organization [facility] Address [address] [place] [address] Care Team Providers Care Soil Expert Name Role Phone Kev Begum MD Primary Care Provider [phone] Encounter Details Date Type Department Care Team (Late st Contact Info) Description 11/23/[address] [facility] [address] [place] [address] Linda Conley MD [address] [place] [address] Acute pharyngitis (Primary Dx); Malaise and fatigue; Headache(784.0) Social History Tobacco Use Types Packs/Day Years Used Date Smoking Tobacco: Never Assessed Comments Unknown Sex and Gender Information Value Date Recorded Sex Assigned at Not on file Legal Sex Female 5:07 AM DISTANCE EDUCATION COORDINATOR Gender Identity Not on file Sexual Orientation Not on file documented as of this encounter Plan of Treatment Not on file documented as of this encounter Visit Diagnoses Diagnosis Acute pharyngitis- Primary Malaise and fatigue Headache(784.0) Headache documented in this encounter Care Teams Soil Expert Relationship Specialty Start Date End Date Kev Begum MD [address] [place] [address] PCP - General 08/30/02 documented as of this encounter
--- OUTSIDE RECORDS SUMMARY | 2025-03-12 09:11 | XMS_ITS | Encounter Summary ---
Author Organization [facility] Address [address] [place] [address] Care Team Providers Care Gis Mapping Technician Name Role Phone Kev Begum MD Primary Care Provider [phone] Encounter Details Date Type Department Care Team (Late st Contact Info) Description 03/24/2001 Outpatient Historical [facility] OBGYN-Warren Navarro Ke[address] [place] [address] Sonali Whitehead MD [address] [facility] [place] [address] Routine medical exam (Primary Dx); Gynecologic examination; Screening for malignant neoplasm of the rectum Social History Tobacco Use Types Packs/Day Years Used Date Smoking Tobacco: Never Assessed Comments Unknown Sex and Gender Information Value Date Recorded Sex Assigned at Not on file Legal Sex Female 5:07 AM CAR AUDIO INSTALLER Gender Identity Not on file Sexual Orientation Not on file documented as of this encounter Plan of Treatment Not on file documented as of this encounter Visit Diagnoses Diagnosis Routine medical exam- Primary Routine general medical examination at a health care facility Gynecologic examination Gynecological examination Screening for malignant neoplasm of the rectum documented in this encounter Care Teams Gis Mapping Technician Relationship Specialty Start Date End Date Kev Begum MD [address] [place] [phone] PCP - General 08/30/02 documented as of this encounter
--- OUTSIDE RECORDS SUMMARY | 2025-03-12 09:11 | XMS_ITS | Encounter Summary ---
Author Organization [facility] Address [address] [place] [address] Care Team Providers Care Tower Foreman Name Role Phone Kev Begum MD Primary Care Provider [phone] Encounter Details Date Type Department Care Team (Latest Contact Info) Description 08/30/2002 Outpatient Historical [facility] [place] [address] Jayden Vanegas MD NO ADDRESS ON FILE MALIG NEOPLASM SKIN FACE NEC (Primary Dx) Social History Tobacco Use Types Packs/Day Years Used Date Smoking Tobacco: Never Assessed Comments Unknown Sex and Gender Information Value Date Recorded Sex Assigned at Not on file Legal Sex Female 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
--- OUTSIDE RECORDS SUMMARY | 2025-03-12 09:11 | XMS_ITS | Encounter Summary ---
Author Organization [facility] Address [address] [place] [address] Care Team Providers Care Chopped Strand Operator Name Role Phone Kev Begum MD Primary Care Provider Encounter Details Date Type Department Care Team (Latest Contact Info) Description 11/26/2006 Outpatient [facility] Podiatry[facility] Keegan [address] [place] [address] Los Humphreys DPM NO ADDRESS ON FILE Plantar Fibromatosis (Primary Dx); Difficulty in Walking; Tarsal Tunnel Syndrome Social History Tobacco Use Types Packs/Day Years Used Date Smoking Tobacco: Never Assessed Comments Unknown Sex and Gender Information Value Date Recorded Sex Assigned at Not on file Legal Sex Female 5:07 AM HAND PATCHER Gender Identity Not on file Sexual Orientation Not on file documented as of this encounter Plan of Treatment Not on file documented as of this encounter Visit Diagnoses Diagnosis Plantar fibromatosis- Primary Plantar fascial fibromatosis Difficulty in walking(719.7) Difficulty in walking Tarsal tunnel syndrome documented in this encounter Care Teams Chopped Strand Operator Relationship Specialty Start Date End Date Kev Begum MD [address] [place] [address] PCP - General 08/30/02 documented as of this encounter
--- OUTSIDE RECORDS SUMMARY | 2025-03-12 09:11 | XMS_ITS | Encounter Summary ---
Author Organization [facility] Address [address] [place] [address] Care Team Providers Care Family Member Caretaker Name Role Phone Kev Begum MD Primary Care Provider [phone] Encounter Details Date Type Department Care Team (Late st Contact Info) Description 04/10/2001 Outpatient Historical [facility] Imaging Services-Kelvin Beckwith Keegan [address] [place] [address] Kev Begum MD [address] [place] [address] Abdominal pain, right upper quadrant (Primary Dx) Social History Tobacco Use Types Packs/Day Years Used Date Smoking Tobacco: Never Assessed Comments Unknown Sex and Gender Information Value Date Recorded Sex Assigned at Not on file Legal Sex Female 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
--- OUTSIDE RECORDS SUMMARY | 2025-03-12 09:11 | XMS_ITS | Encounter Summary ---
Author Organization [facility] Address [address] [place] [address] Care Team Providers Care Recruiter Manager Name Role Phone Kev Begum MD Primary Care Provider [phone] Encounter Details Date Type Department Care Team (Late st Contact Info) Description 03/30/2001 Outpatient Historical [facility] [place]vin Beckwith Keegan [address] 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
--- OUTSIDE RECORDS SUMMARY | 2025-03-12 09:11 | XMS_ITS | Encounter Summary ---
Author Organization [facility] Address [address] [place] [address] Care Team Providers Care Saw Boss Name Role Phone Kev Begum MD Primary Care Provider [phone] Encounter Details Date Type Department Care Team (Latest Contact Info) Description 10/06/2002 Outpatient [facility] Facial Plastic Surgery[address] [place] [address] Kenroy Trotter MD NO ADDRESS ON FILE SURGERY FOLLOWUP, UNSPEC (Primary Dx) Social History Tobacco Use Types Packs/Day Years Used Date Smoking Tobacco: Never Assessed Comments Unknown Sex and Gender Information Value Date Recorded Sex Assigned at Not on file Legal Sex Female 5:07 AM LAPIDARIST Gender Identity Not on file Sexual Orientation Not on file documented as of this encounter Plan of Treatment Not on file documented as of this encounter Visit Diagnoses Diagnosis Follow-up examination, following unspecified surgery- Primary documented in this encounter Care Teams Saw Boss Relationship Specialty Start Date End Date Kev Begum MD [address] [place] [phone] PCP - General 08/30/02 documented as of this encounter
--- OUTSIDE RECORDS SUMMARY | 2025-03-12 09:11 | XMS_ITS | Encounter Summary ---
Author Organization [facility] Address [address] [place]: [place] [address] Care Team Providers Care Bridge Teacher Name Role Phone Kev Begum MD Primary Care Provider [phone] Encounter Details Date Type Department Care Team (Late st Contact Info) Description 12/10/1999 Outpatient Historical Sonali Whitehead MD [address] [facility] [place] [phone] Social History Tobacco Use Types Packs/Day Years Used Date Smoking Tobacco: Never Assessed Comments Unknown Sex and Gender Information Value Date Recorded Sex Assigned at Not on file Legal Sex Female 5:07 AM ASSOCIATE MERCHANDISE PLANNER Gender Identity Not on file Sexual Orientation Not on file documented as of this encounter Plan of Treatment Not on file documented as of this encounter Visit Diagnoses Not on filedocumented in this encounter Care Teams Bridge Teacher Relationship Specialty Start Date End Date Kev Begum MD [address] [facility] [address] [place] [phone] PCP - General 08/30/02 documented as of this encounter
--- OUTSIDE RECORDS SUMMARY | 2025-03-12 09:11 | XMS_ITS | Encounter Summary ---
Author Organization [facility] Address [address] [place] [address] Care Team Providers Care Nutrition Representative Name Role Phone Kev Begum MD Primary Care Provider [phone] Encounter Details Date Type Department Care Team (Latest Contact Info) Description 08/09/2002 Outpatient [facility] [address] [place] [address] Brant Durán MD [address] [place] [address] ABDOMINAL PAIN UNSPEC SITE (Primary Dx) Social History Tobacco Use Types Packs/Day Years Used Date Smoking Tobacco: Never Assessed Comments Unknown Sex and Gender Information Value Date Recorded Sex Assigned at Not on file Legal Sex Female 5:07 AM SEAL DELIVERY VEHICLE OFFICER Gender Identity Not on file Sexual Orientation Not on file documented as of this encounter Plan of Treatment Not on file documented as of this encounter Visit Diagnoses Diagnosis Abdominal pain, unspecified site- Primary documented in this encounter Care Teams Nutrition Representative Relationship Specialty Start Date End Date Kev Begum MD [address] [place] [address] PCP - General 08/30/02 documented as of this encounter
--- OUTSIDE RECORDS SUMMARY | 2025-03-12 09:11 | XMS_ITS | Encounter Summary ---
Author Organization [facility] Address [address] [place] [address] Care Team Providers Care Bleach Analyst Name Role Phone Kev Begum MD Primary Care Provider [phone] Encounter Details Date Type Department Care Team (Late st Contact Info) Description 05/21/2001 Outpatient Historical [facility] Kev Begum MD [address] [place] [address] Nonspecific abnormal results of liver function study (Primary Dx) Social History Tobacco Use Types Packs/Day Years Used Date Smoking Tobacco: Never Assessed Comments Unknown Sex and Gender Information Value Date Recorded Sex Assigned at Not on file Legal Sex Female 5:07 AM ONLINE BANKING SPECIALIST Gender Identity Not on file Sexual Orientation Not on file documented as of this encounter Plan of Treatment Not on file documented as of this encounter Visit Diagnoses Diagnosis Nonspecific abnormal results of liver function study- Primary documented in this encounter Care Teams Bleach Analyst Relationship Specialty Start Date End Date Kev Begum MD [address] [place] [address] PCP - General 08/30/02 documented as of this encounter
--- OUTSIDE RECORDS SUMMARY | 2025-03-12 09:11 | XMS_ITS | Encounter Summary ---
Author Organization [facility] Address [address] [place] [address] Care Team Providers Care Post Doc Fellowship Name Role Phone Kev Begum MD Primary Care Provider [phone] Encounter Details Date Type Department Care Team (Latest Contact Info) Description 12/10/1999 Outpatient Historical [facility] Imaging Services-[place] Keegan [address] [place] [address] Sonali Whitehead MD [address] [facility] [place] [address] Postmenopausal bleeding (Primary Dx) Social History Tobacco Use Types Packs/Day Years Used Date Smoking Tobacco: Never Assessed Comments Unknown Sex and Gender Information Value Date Recorded Sex Assigned at Not on file Legal Sex Female 5:07 AM TAX ASSISTANT Gender Identity Not on file Sexual Orientation Not on file documented as of this encounter Plan of Treatment Not on file documented as of this encounter Visit Diagnoses Diagnosis Postmenopausal bleeding- Primary documented in this encounter Care Teams Post Doc Fellowship Relationship Specialty Start Date End Date Kev Begum MD [address] [place] [address] PCP - General 08/30/02 documented as of this encounter
--- OUTSIDE RECORDS SUMMARY | 2025-03-12 09:11 | XMS_ITS | Encounter Summary ---
Author Organization [facility] Address [address] [place] [address] Care Team Providers Care Distribution Accounting Clerk Name Role Phone Kev Begum MD Primary Care Provider [phone] Encounter Details Date Type Department Care Team (Late st Contact Info) Description 08/29/2006 Outpatient Historical [facility] Kelvin Beckwith Ke[address] [place] [address] Kev Begum MD [address] [phone] Other Screening Mammogram (Primary Dx) Social History Tobacco Use Types Packs/Day Years Used Date Smoking Tobacco: Never Assessed Comments Unknown Sex and Gender Information Value Date Recorded Sex Assigned at Not on file Legal Sex Female 5:07 AM SOFTWARE RECRUITER Gender Identity Not on file Sexual Orientation Not on file documented as of this encounter Plan of Treatment Not on file documented as of this encounter Visit Diagnoses Diagnosis Other screening mammogram- Primary documented in this encounter Care Teams Distribution Accounting Clerk Relationship Specialty Start Date End Date Kev Begum MD [address] [place] [address] PCP - General 08/30/02 documented as of this encounter
--- OUTSIDE RECORDS SUMMARY | 2025-03-12 09:11 | XMS_ITS | Encounter Summary ---
Author Organization [facility] Address [address] [place] [address] Care Team Providers Care Gas Fitter Apprentice Name Role Phone Kev Begum MD Primary Care Provider [phone] Encounter Details Date Type Department Care Team (Late st Contact Info) Description 08/29/2006 Outpatient [facility] Int [facility] [address] [place] [address] Kev Begum MD [address] [place] [address] Routine Medical Exam (Primary Dx) Social History Tobacco Use Types Packs/Day Years Used Date Smoking Tobacco: Never Assessed Comments Unknown Sex and Gender Information Value Date Recorded Sex Assigned at Not on file Legal Sex Female 5:07 AM SHIPPING CHECKER Gender Identity Not on file Sexual Orientation Not on file documented as of this encounter Plan of Treatment Not on file documented as of this encounter Visit Diagnoses Diagnosis Routine medical exam- Primary Routine general medical examination at a health care facility documented in this encounter Care Teams Gas Fitter Apprentice Relationship Specialty Start Date End Date Kev Begum MD [address] [place] [address] PCP - General 08/30/02 documented as of this encounter
--- OUTSIDE RECORDS SUMMARY | 2025-03-12 09:11 | XMS_ITS | Encounter Summary ---
Author Organization [facility] Address [address] [place] [address] Care Team Providers Care Ballistics Teacher Name Role Phone Kev Begum MD Primary Care Provider [phone] Encounter Details Date Type Department Care Team (Latest Contact Info) Description 11/08/2002 Outpatient [facility] Gastroenterology- [place] [address] [place] [address] Brant Durán MD [address] [place] [address] ABDOMINAL PAIN EPIGASTRIC (Primary Dx) Social History Tobacco Use Types Packs/Day Years Used Date Smoking Tobacco: Never Assessed Comments Unknown Sex and Gender Information Value Date Recorded Sex Assigned at Not on file Legal Sex Female 5:07 AM SALES REPRESENTATIVE PUBLICATIONS Gender Identity Not on file Sexual Orientation Not on file documented as of this encounter Plan of Treatment Not on file documented as of this encounter Visit Diagnoses Diagnosis Abdominal pain, epigastric- Primary documented in this encounter Care Teams Ballistics Teacher Relationship Specialty Start Date End Date Kev Begum MD [address] [place] [address] PCP - General 08/30/02 documented as of this encounter
--- OUTSIDE RECORDS SUMMARY | 2025-03-12 09:11 | XMS_ITS | Encounter Summary ---
Author Organization [facility] Address [address] [place] [address] Care Team Providers Care Network Professional Name Role Phone Kev Begum MD Primary Care Provider [phone] Encounter Details Date Type Department Care Team (Latest Contact Info) Description 06/16/2002 Outpatient [facility] Podiatry-[facility] Keegan [address] [place] [address] Los Humphreys DPM NO ADDRESS ON FILE TENOSYNOVITIS FOOT/ANKLE (Primary Dx); ENTHESOPATHY, SITE NOS; INSECT BITE FOOT/TOE; Pain in limb Social History Tobacco Use Types Packs/Day Years Used Date Smoking Tobacco: Never Assessed Comments Unknown Sex and Gender Information Value Date Recorded Sex Assigned at Not on file Legal Sex Female 5:07 AM COBOL PROGRAMMER Gender Identity Not on file Sexual Orientation Not on file documented as of this encounter Plan of Treatment Not on file documented as of this encounter Visit Diagnoses Diagnosis Tenosynovitis of foot and ankle- Primary Enthesopathy of unspecified site Foot and toe(s), insect bite, nonvenomous, without mention of infection Pain in limb Pain in soft tissues of limb documented in this encounter Care Teams Network Professional Relationship Specialty Start Date End Date Kev Begum MD [address] [place] [address] PCP - General 08/30/02 documented as of this encounter
--- OUTSIDE RECORDS SUMMARY | 2025-03-12 09:11 | XMS_ITS | Encounter Summary ---
Author Organization [facility] Address [address] [place] [address] Care Team Providers Care Raveler Name Role Phone Kev Begum MD Primary Care Provider [phone] Encounter Details Date Type Department Care Team (Latest Contact Info) Description 09/21/2002 Outpatient [facility] Facial Plastic Surgery[address] [place] [address] Kenroy Trotter MD NO ADDRESS ON FILE SURGERY FOLLOWUP, UNSPEC (Primary Dx) Social History Tobacco Use Types Packs/Day Years Used Date Smoking Tobacco: Never Assessed Comments Unknown Sex and Gender Information Value Date Recorded Sex Assigned at Not on file Legal Sex Female 5:07 AM SOCKET WELDER HELPER Gender Identity Not on file Sexual Orientation Not on file documented as of this encounter Plan of Treatment Not on file documented as of this encounter Visit Diagnoses Diagnosis Follow-up examination, following unspecified surgery- Primary documented in this encounter Care Teams Raveler Relationship Specialty Start Date End Date Kev Begum MD [address] [place] [address] PCP - General 08/30/02 documented as of this encounter
--- OUTSIDE RECORDS SUMMARY | 2025-03-12 09:11 | XMS_ITS | Encounter Summary ---
Author Organization [facility] Address [address] [place] [address] Care Team Providers Care Blade Aligner Name Role Phone Kev Begum MD Primary Care Provider [phone] Encounter Details Date Type Department Care Team (Latest Contact Info) Description 09/11/2006 Outpatient Historical [facility] Imaging Services-Kelvin Beckwith Keegan [address] [place] [address] Los Humphreys, DPM NO ADDRESS ON FILE Pain in Limb (Primary Dx) Social History Tobacco Use Types Packs/Day Years Used Date Smoking Tobacco: Never Assessed Comments Unknown Sex and Gender Information Value Date Recorded Sex Assigned at Not on file Legal Sex Female 5: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
--- OUTSIDE RECORDS SUMMARY | 2025-03-12 09:11 | XMS_ITS | Encounter Summary ---
Author Organization [facility] Address [address] [place] [address] Care Team Providers Care Satellite Tv Installer Name Role Phone Kev Begum MD Primary Care Provider [phone] Encounter Details Date Type Department Care Team (Latest Contact Info) Description 12/10/1999 Outpatient Historical [facility] OBGYN-[place] [address] [place] [address] Sonali Whitehead MD [address] [facility] [place] [address] Postmenopausal bleeding (Primary Dx) Social History Tobacco Use Types Packs/Day Years Used Date Smoking Tobacco: Never Assessed Comments Unknown Sex and Gender Information Value Date Recorded Sex Assigned at Not on file Legal Sex Female 5:07 AM IRRIGATOR Gender Identity Not on file Sexual Orientation Not on file documented as of this encounter Plan of Treatment Not on file documented as of this encounter Visit Diagnoses Diagnosis Postmenopausal bleeding- Primary documented in this encounter Care Teams Satellite Tv Installer Relationship Specialty Start Date End Date Kev Begum MD [address] [place] [address] PCP - General 08/30/02 documented as of this encounter
--- OUTSIDE RECORDS SUMMARY | 2025-03-12 09:11 | XMS_ITS | Encounter Summary ---
Author Organization [facility] Address [address] [place] [address] Care Team Providers Care Pit Shovel Operator Name Role Phone Kev Begum MD Primary Care Provider [phone] Encounter Details Date Type Department Care Team (Latest Contact Info) Description 10/20/2000 Outpatient [facility] Podiatry[facility] Keegan [address] [place] [address] Los Humphreys DPM NO ADDRESS ON FILE Pain in limb (Primary Dx); Injury, other and unspecified, knee, leg, ankle, and foot; Sprain of foot, unspecified site Social History Tobacco Use Types Packs/Day Years Used Date Smoking Tobacco: Never Assessed Comments Unknown Sex and Gender Information Value Date Recorded Sex Assigned at Not on file Legal Sex Female 5:07 AM KNOT BUMPER Gender Identity Not on file Sexual Orientation Not on file documented as of this encounter Plan of Treatment Not on file documented as of this encounter Visit Diagnoses Diagnosis Pain in limb- Primary Pain in soft tissues of limb Injury, other and unspecified, knee, leg, ankle, and foot Sprain of foot, unspecified site documented in this encounter Care Teams Pit Shovel Operator Relationship Specialty Start Date End Date Kev Begum MD [address] [place] [address] PCP - General 08/30/02 documented as of this encounter
--- OUTSIDE RECORDS SUMMARY | 2025-03-12 09:11 | XMS_ITS | Encounter Summary ---
Author Organization [facility] Address [address] [place] [address] Care Team Providers Care Milk House Worker Name Role Phone Kev Begum MD Primary Care Provider [phone] Encounter Details Date Type Department Care Team (Late st Contact Info) Description 04/12/2002 Outpatient [facility] DEXA Scan Services-Kelvin Beckwith [place] [address] [place] [address] Kev Begum MD [address] [place] [address] OTHER OVARIAN FAILURE (Primary Dx) Social History Tobacco Use Types Packs/Day Years Used Date Smoking Tobacco: Never Assessed Comments Unknown Sex and Gender Information Value Date Recorded Sex Assigned at Not on file Legal Sex Female 5:07 AM WINDER FIXER Gender Identity Not on file Sexual Orientation Not on file documented as of this encounter Plan of Treatment Not on file documented as of this encounter Visit Diagnoses Diagnosis Other ovarian failure(256.39)- Primary Other ovarian failure documented in this encounter Care Teams Milk House Worker Relationship Specialty Start Date End Date Kev Begum MD [address] [place] [address] PCP - General 08/30/02 documented as of this encounter
--- OUTSIDE RECORDS SUMMARY | 2025-03-12 09:11 | XMS_ITS | Encounter Summary ---
Author Organization [facility] Address [address] [place] [address] Care Team Providers Care Sole Conditioner Name Role Phone Kev Begum MD Primary Care Provider [phone] Encounter Details Date Type Department Care Team (Latest Contact Info) Description 07/12/2002 Outpatient Historical [facility] [place] [address] [facility] [address] [place] [address] Reji Zhou MD NO ADDRESS ON FILE Pain in limb (Primary Dx) Social History Tobacco Use Types Packs/Day Years Used Date Smoking Tobacco: Never Assessed Comments Unknown Sex and Gender Information Value Date Recorded Sex Assigned at Not on file Legal Sex Female 5:07 AM CLAY HOISTER Gender Identity Not on file Sexual Orientation Not on file documented as of this encounter Plan of Treatment Not on file documented as of this encounter Visit Diagnoses Diagnosis Pain in limb- Primary Pain in soft tissues of limb documented in this encounter Care Teams Sole Conditioner Relationship Specialty Start Date End Date Kev Begum MD [address] [place] [address] PCP - General 08/30/02 documented as of this encounter
--- OUTSIDE RECORDS SUMMARY | 2025-03-12 09:11 | XMS_ITS | Encounter Summary ---
Author Organization [facility] Address [address] [place] [address] Care Team Providers Care Ceiling Cleaner Name Role Phone Kev Begum MD Primary Care Provider [phone] Encounter Details Date Type Department Care Team (Latest Contact Info) Description 09/11/2007 Outpatient [facility] [address] [place] [address] Kev Begum MD [address] [place] [address] Routine Gynecological Examination Social History Tobacco Use Types Packs/Day Years Used Date Smoking Tobacco: Never Assessed Comments No Sex and Gender Information Value Date Recorded Sex Assigned at Not on file Legal Sex Female 5:07 AM GUIDE DOG TRAINER Gender Identity Not on file Sexual Orientation Not on file documented as of this encounter Plan of Treatment Not on file documented as of this encounter Visit Diagnoses Diagnosis Routine gynecological examination documented in this encounter Care Teams Ceiling Cleaner Relationship Specialty Start Date End Date Kev Begum MD [address] [place] [address] PCP - General 08/30/02 documented as of this encounter
--- OUTSIDE RECORDS SUMMARY | 2025-03-12 09:11 | XMS_ITS | Encounter Summary ---
Author Organization [facility] Address [address] [place] [address] Care Team Providers Care Oil Well Services Supervisor Name Role Phone Kev Begum MD Primary Care Provider [phone] Encounter Details Date Type Department Care Team (Latest Contact Info) Description 11/11/2002 Outpatient [facility] Facial Plastic Surgery[address] [place] [address] Kenroy Trotter MD NO ADDRESS ON FILE SURGERY FOLLOWUP, UNSPEC (Primary Dx) Social History Tobacco Use Types Packs/Day Years Used Date Smoking Tobacco: Never Assessed Comments Unknown Sex and Gender Information Value Date Recorded Sex Assigned at Not on file Legal Sex Female 5:07 AM MARINE MECHANIC Gender Identity Not on file Sexual Orientation Not on file documented as of this encounter Plan of Treatment Not on file documented as of this encounter Visit Diagnoses Diagnosis Follow-up examination, following unspecified surgery- Primary documented in this encounter Care Teams Oil Well Services Supervisor Relationship Specialty Start Date End Date Kev Begum MD [address] [place] [address] PCP - General 08/30/02 documented as of this encounter
--- OUTSIDE RECORDS SUMMARY | 2025-03-12 09:11 | XMS_ITS | Encounter Summary ---
Author Organization [facility] Address [address] [place] [address] Care Team Providers Care Ski Base Trimmer Name Role Phone Kev Begum MD Primary Care Provider [phone] Encounter Details Date Type Department Care Team (Latest Contact Info) Description 08/31/2002 Outpatient Historical [facility] [place] [address] [facility] [address] [place] [address] Brant Durán MD [address] [place] [address] ABDOMINAL PAIN EPIGASTRIC (Primary Dx) Social History Tobacco Use Types Packs/Day Years Used Date Smoking Tobacco: Never Assessed Comments Unknown Sex and Gender Information Value Date Recorded Sex Assigned at Not on file Legal Sex Female 5:07 AM TABLET TESTER Gender Identity Not on file Sexual Orientation Not on file documented as of this encounter Plan of Treatment Not on file documented as of this encounter Visit Diagnoses Diagnosis Abdominal pain, epigastric- Primary documented in this encounter Care Teams Ski Base Trimmer Relationship Specialty Start Date End Date Kev Begum MD [address] [facility] [address] [place] [address] PCP - General 08/30/02 documented as of this encounter
--- OUTSIDE RECORDS SUMMARY | 2025-03-12 09:11 | XMS_ITS | Encounter Summary ---
Author Organization [facility] Address [address] [place] [address] Care Team Providers Care Telegraph Printer Mechanic Name Role Phone Kev Begum MD Primary Care Provider [phone] Encounter Details Date Type Department Care Team (Latest Contact Info) Description 08/31/2002 Outpatient [facility] [place] [address] [place] [address] Brant Durán MD [address] [place] [address] ABDOMINAL PAIN EPIGASTRIC (Primary Dx) Social History Tobacco Use Types Packs/Day Years Used Date Smoking Tobacco: Never Assessed Comments Unknown Sex and Gender Information Value Date Recorded Sex Assigned at Not on file Legal Sex Female 5:07 AM SHANK SORTER Gender Identity Not on file Sexual Orientation Not on file documented as of this encounter Plan of Treatment Not on file documented as of this encounter Visit Diagnoses Diagnosis Abdominal pain, epigastric- Primary documented in this encounter Care Teams Telegraph Printer Mechanic Relationship Specialty Start Date End Date Kev Begum MD [address] [place] [address] PCP - General 08/30/02 documented as of this encounter
--- OUTSIDE RECORDS SUMMARY | 2025-03-12 09:11 | XMS_ITS | Encounter Summary ---
Author Organization [facility] Address [address] [place] [address] Care Team Providers Care Director Safety Name Role Phone Kev Begum MD Primary Care Provider [phone] Encounter Details Date Type Department Care Team (Late Contact Info) Description 04/26/2003 Outpatient Historical [facility] FY06 Sonali Whitehead MD [address] [facility] [place] [address] Social History Tobacco Use Types Packs/Day Years Used Date Smoking Tobacco: Never Assessed Comments Unknown Sex and Gender Information Value Date Recorded Sex Assigned at Not on file Legal Sex Female 5:07 AM TILE DITCHER Gender Identity Not on file Sexual Orientation Not on file documented as of this encounter Plan of Treatment Not on file documented as of this encounter Visit Diagnoses Not on filedocumented in this encounter Care Teams Director Safety Relationship Specialty Start Date End Date Kev Begum MD [address] [address] [address] [place] [address] PCP - General 08/30/02 documented as of this encounter
--- OUTSIDE RECORDS SUMMARY | 2025-03-12 09:11 | XMS_ITS | Encounter Summary ---
Author Organization [facility] Address [address] [place] [address] Care Team Providers Care Appointment Clerk Name Role Phone Kev Begum MD Primary Care Provider [phone] Encounter Details Date Type Department Care Team (Late st Contact Info) Description 08/24/2001 Outpatient [facility] [address] [place] [address] Kev Begum MD [address] [place] [address] ABNORMAL LIVER FUNCTION STUDY (Primary Dx); IRON DEFIC ANEMIA NOS Social History Tobacco Use Types Packs/Day Years Used Date Smoking Tobacco: Never Assessed Comments Unknown Sex and Gender Information Value Date Recorded Sex Assigned at Not on file Legal Sex Female 5:07 AM VOLCANOLOGY PROFESSOR Gender Identity Not on file Sexual Orientation Not on file documented as of this encounter Plan of Treatment Not on file documented as of this encounter Visit Diagnoses Diagnosis Nonspecific abnormal results of liver function study- Primary Iron deficiency anemia, unspecified documented in this encounter Care Teams Appointment Clerk Relationship Specialty Start Date End Date Kev Begum MD [address] [place] [address] PCP - General 08/30/02 documented as of this encounter
--- OUTSIDE RECORDS SUMMARY | 2025-03-12 09:11 | XMS_ITS | Encounter Summary ---
Author Organization [facility] Address [address] [place] [address] Care Team Providers Care Embroiderer Name Role Phone Kev Begum MD Primary Care Provider [phone] Encounter Details Date Type Department Care Team (Late st Contact Info) Description 03/30/2001 Outpatient Historical [facility] Kev Begum MD [address] [place] [address] Routine medical exam (Primary Dx); Abdominal pain, unspecified site; Other blood disease Social History Tobacco Use Types Packs/Day Years Used Date Smoking Tobacco: Never Assessed Comments Unknown Sex and Gender Information Value Date Recorded Sex Assigned at Not on file Legal Sex Female 5: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 Gender Identity Not on file Sexual Orientation Not on file documented as of this encounter Plan of Treatment Not on file documented as of this encounter Visit Diagnoses Diagnosis Routine medical exam- Primary Routine general medical examination at a health care facility Abdominal pain, unspecified site Other blood disease Other specified diseases of blood and blood-forming organs documented in this encounter Care Teams Embroiderer Relationship Specialty Start Date End Date Kev Begum MD [address] [place] [address] PCP - General 08/30/02 documented as of this encounter
--- OUTSIDE RECORDS SUMMARY | 2025-03-12 09:11 | XMS_ITS | Encounter Summary ---
Author Organization [facility] Address [address] [place] [address] Care Team Providers Care Security Incident Response Engineer Name Role Phone Kev Begum MD Primary Care Provider [phone] Encounter Details Date Type Department Care Team (Late st Contact Info) Description 01/21/[address] [facility] [place] [address] [place] [address] Social History Tobacco Use Types Packs/Day Years Used Date Smoking Tobacco: Never Assessed Comments Unknown Sex and Gender Information Value Date Recorded Sex Assigned at Not on file Legal Sex Female 5:07 AM CLINIC LICENSED PRACTICAL NURSE Gender Identity Not on file Sexual Orientation Not on file documented as of this encounter Plan of Treatment Not on file documented as of this encounter Visit Diagnoses Not on filedocumented in this encounter Care Teams Security Incident Response Engineer Relationship Specialty Start Date End Date Kev Begum MD [address] [place] [address] PCP - General 08/30/02 documented as of this encounter
--- OUTSIDE RECORDS SUMMARY | 2025-03-12 09:11 | XMS_ITS | Encounter Summary ---
Author Organization [facility] Address [address] [place] [address] Care Team Providers Care Administration Intern Name Role Phone Kev Begum MD Primary Care Provider [phone] Encounter Details Date Type Department Care Team (Late st Contact Info) Description 03/25/2000 Outpatient Historical [facility] Kev Begum MD [address] [place] [address] Routine medical exam (Primary Dx) Social History Tobacco Use Types Packs/Day Years Used Date Smoking Tobacco: Never Assessed Comments Unknown Sex and Gender Information Value Date Recorded Sex Assigned at Not on file Legal Sex Female 5:07 AM TEST ENGINE MECHANIC Gender Identity Not on file Sexual Orientation Not on file documented as of this encounter Plan of Treatment Not on file documented as of this encounter Visit Diagnoses Diagnosis Routine medical exam- Primary Routine general medical examination at a health care facility documented in this encounter Care Teams Administration Intern Relationship Specialty Start Date End Date Kev Begum MD [address] [place] [address] PCP - General 08/30/02 documented as of this encounter
--- OUTSIDE RECORDS SUMMARY | 2025-03-12 09:11 | XMS_ITS | Encounter Summary ---
Author Organization [facility] Address [address] [place] [address] Care Team Providers Care Executive Account Manager Name Role Phone Kev Begum MD Primary Care Provider [phone] Encounter Details Date Type Department Care Team (Latest Contact Info) Description 04/04/2000 Outpatient Historical [facility] Int [facility] [address] [place] [address] Kev Begum MD [address] [place] [address] Palpitations (Primary Dx) Social History Tobacco Use Types Packs/Day Years Used Date Smoking Tobacco: Never Assessed Comments Unknown Sex and Gender Information Value Date Recorded Sex Assigned at Not on file Legal Sex Female 5:07 AM SALES LEAD GENERATOR Gender Identity Not on file Sexual Orientation Not on file documented as of this encounter Plan of Treatment Not on file documented as of this encounter Visit Diagnoses Diagnosis Palpitations- Primary documented in this encounter Care Teams Executive Account Manager Relationship Specialty Start Date End Date Kev Begum MD [address] [place] [address] PCP - General 08/30/02 documented as of this encounter
--- OUTSIDE RECORDS SUMMARY | 2025-03-12 09:11 | XMS_ITS | Encounter Summary ---
Author Organization [facility] Address [address] [place] [address] Care Team Providers Care Mixer And Blender Name Role Phone Kev Begum MD Primary Care Provider [phone] Encounter Details Date Type Department Care Team (Late st Contact Info) Description 09/10/2007 Outpatient [facility] [address] [place] [address] Kev Begum MD [address] [place] [address] Social History Tobacco Use Types Packs/Day Years Used Date Smoking Tobacco: Never Assessed Comments No Sex and Gender Information Value Date Recorded Sex Assigned at Not on file Legal Sex Female 5:07 AM CLOTHER IN Gender Identity Not on file Sexual Orientation Not on file documented as of this encounter Plan of Treatment Not on file documented as of this encounter Visit Diagnoses Not on filedocumented in this encounter Care Teams Mixer And Blender Relationship Specialty Start Date End Date Kev Begum MD [address] [place] [address] PCP - General 08/30/02 documented as of this encounter
--- OUTSIDE RECORDS SUMMARY | 2025-03-12 09:11 | XMS_ITS | Encounter Summary ---
Author Organization [facility] Address [address] [place] [address] Care Team Providers Care Survey Research Teacher Name Role Phone Kev Begum MD Primary Care Provider [phone] Encounter Details Date Type Department Care Team (Latest Contact Info) Description 05/19/2002 Outpatient [facility] [address] [place] [address] Los Humphreys DPM NO ADDRESS ON FILE LOWER LEG INJURY NOS (Primary Dx); ENTHESOPATHY, SITE NOS; Pain in limb Social History Tobacco Use Types Packs/Day Years Used Date Smoking Tobacco: Never Assessed Comments Unknown Sex and Gender Information Value Date Recorded Sex Assigned at Not on file Legal Sex Female 5:07 AM PERCOLATOR OPERATOR Gender Identity Not on file Sexual Orientation Not on file documented as of this encounter Plan of Treatment Not on file documented as of this encounter Visit Diagnoses Diagnosis Injury, other and unspecified, knee, leg, ankle, and foot- Primary Enthesopathy of unspecified site Pain in limb Pain in soft tissues of limb documented in this encounter Care Teams Survey Research Teacher Relationship Specialty Start Date End Date Kev Begum MD [address] [place] [address] PCP - General 08/30/02 documented as of this encounter
--- OUTSIDE RECORDS SUMMARY | 2025-03-12 09:11 | XMS_ITS | Encounter Summary ---
Author Organization [facility] Address [address] [place] [address] Care Team Providers Care Spinning Lathe Operator Hydraulic Name Role Phone Kev Begum MD Primary Care Provider [phone] Encounter Details Date Type Department Care Team (Latest Contact Info) Description 02/08/2003 Outpatient [facility] Facial Plastic Surgery[address] [place] [address] Kenroy Trotter MD NO ADDRESS ON FILE SURGERY FOLLOWUP, UNSPEC (Primary Dx) Social History Tobacco Use Types Packs/Day Years Used Date Smoking Tobacco: Never Assessed Comments Unknown Sex and Gender Information Value Date Recorded Sex Assigned at Not on file Legal Sex Female 5:07 AM MID LEVEL GAME DESIGNER Gender Identity Not on file Sexual Orientation Not on file documented as of this encounter Plan of Treatment Not on file documented as of this encounter Visit Diagnoses Diagnosis Follow-up examination, following unspecified surgery- Primary documented in this encounter Care Teams Spinning Lathe Operator Hydraulic Relationship Specialty Start Date End Date Kev Begum MD [address] [place] [address] PCP - General 08/30/02 documented as of this encounter
--- OUTSIDE RECORDS SUMMARY | 2025-03-12 09:11 | XMS_ITS | Encounter Summary ---
Author Organization [facility] Address [address] [place] [address] Care Team Providers Care Family Law Paralegal Name Role Phone Kev Begum MD Primary Care Provider [phone] Encounter Details Date Type Department Care Team (Latest Contact Info) Description 04/03/2001 Outpatient Historical [facility] [address] [place] [address] Jayden Vanegas MD NO ADDRESS ON FILE Malig leta skin leg (Primary Dx); Other seborrheic keratosis; Other and unspecified capillary diseases; Other dyschromia Social History Tobacco Use Types Packs/Day Years Used Date Smoking Tobacco: Never Assessed Comments Unknown Sex and Gender Information Value Date Recorded Sex Assigned at Not on file Legal Sex Female 5:07 AM CRANE MAN Gender Identity Not on file Sexual Orientation Not on file documented as of this encounter Plan of Treatment Not on file documented as of this encounter Visit Diagnoses Diagnosis 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
--- OUTSIDE RECORDS SUMMARY | 2025-03-12 09:11 | XMS_ITS | Encounter Summary ---
Author Organization [facility] Address [address] [place] [address] Care Team Providers Care Travel Money Advisor Name Role Phone Kev Begum MD Primary Care Provider [phone] Encounter Details Date Type Department Care Team (Latest Contact Info) Description 04/17/2000 Outpatient Historical [facility] Cardiology- [place] [address] [place] [address] David Celeste MD NO ADDRESS ON FILE Palpitations (Primary Dx) Social History Tobacco Use Types Packs/Day Years Used Date Smoking Tobacco: Never Assessed Comments Unknown Sex and Gender Information Value Date Recorded Sex Assigned at Not on file Legal Sex Female 5:07 AM CHEMICAL RECOVERY OPERATOR Gender Identity Not on file Sexual Orientation Not on file documented as of this encounter Plan of Treatment Not on file documented as of this encounter Visit Diagnoses Diagnosis Palpitations- Primary documented in this encounter Care Teams Travel Money Advisor Relationship Specialty Start Date End Date Kev Begum MD [address] [facility] [address] [place] [address] PCP - General 08/30/02 documented as of this encounter
--- OUTSIDE RECORDS SUMMARY | 2025-03-12 09:11 | XMS_ITS | Encounter Summary ---
Author Organization [facility] Address [address] [place] [address] Care Team Providers Care Structured Cabling Technician Name Role Phone Kev Begum MD Primary Care Provider Encounter Details Date Type Department Care Team (Latest Contact Info) Description 10/21/2002 Outpatient [facility] Facial Plastic Surgery[address] [place] [address] Kenroy Trotter MD NO ADDRESS ON FILE SURGERY FOLLOWUP, UNSPEC (Primary Dx) Social History Tobacco Use Types Packs/Day Years Used Date Smoking Tobacco: Never Assessed Comments Unknown Sex and Gender Information Value Date Recorded Sex Assigned at Not on file Legal Sex Female 5:07 AM PAINTER DECORATOR Gender Identity Not on file Sexual Orientation Not on file documented as of this encounter Plan of Treatment Not on file documented as of this encounter Visit Diagnoses Diagnosis Follow-up examination, following unspecified surgery- Primary documented in this encounter Care Teams Structured Cabling Technician Relationship Specialty Start Date End Date Kev Begum MD [address] [place] [address] PCP - General 08/30/02 documented as of this encounter
--- OUTSIDE RECORDS SUMMARY | 2025-03-12 09:11 | XMS_ITS | Encounter Summary ---
Author Organization [facility] Address [address] [place] [address] Care Team Providers Care Layout Mechanic Name Role Phone Kev Begum MD Primary Care Provider [phone] Encounter Details Date Type Department Care Team (Late st Contact Info) Description 03/30/2002 Outpatient [facility] [address] [place] [address] Kev Begum MD [address] [place] [address] ABNORMAL LIVER FUNCTION STUDY (Primary Dx); POLYMYALGIA RHEUMATICA Social History Tobacco Use Types Packs/Day Years Used Date Smoking Tobacco: Never Assessed Comments Unknown Sex and Gender Information Value Date Recorded Sex Assigned at Not on file Legal Sex Female 5:07 AM NEUROLOGY STROKE PHYSICIAN Gender Identity Not on file Sexual Orientation Not on file documented as of this encounter Plan of Treatment Not on file documented as of this encounter Visit Diagnoses Diagnosis Nonspecific abnormal results of liver function study- Primary Polymyalgia rheumatica documented in this encounter Care Teams Layout Mechanic Relationship Specialty Start Date End Date Kev Begum MD [address] [place] [address] PCP - General 08/30/02 documented as of this encounter
--- OUTSIDE RECORDS SUMMARY | 2025-03-12 09:11 | XMS_ITS | Encounter Summary ---
Author Organization [facility] Address [address] [place] [address] Care Team Providers Care Reinsurance Accountant Name Role Phone Kev Begum MD Primary Care Provider [phone] Encounter Details Date Type Department Care Team (Latest Contact Info) Description 10/27/2006 Outpatient [facility] Podiatry-[facility] [place] [address] [place] [address] Los Humphreys DPM NO ADDRESS ON FILE Pain in Limb (Primary Dx); Congenital Anomalies of Foot, not Elsewhere Classified; Enthesopathy of Unspecified Site; Difficulty in Walking Social History Tobacco Use Types Packs/Day Years Used Date Smoking Tobacco: Never Assessed Comments Unknown Sex and Gender Information Value Date Recorded Sex Assigned at Not on file Legal Sex Female 5:07 AM AMMONIUM NITRATE NEUTRALIZER Gender Identity Not on file Sexual Orientation Not on file documented as of this encounter Plan of Treatment Not on file documented as of this encounter Visit Diagnoses Diagnosis Pain in limb- Primary Pain in soft tissues of limb Congenital anomalies of foot, not elsewhere classified Enthesopathy of unspecified site Difficulty in walking(719.7) Difficulty in walking documented in this encounter Care Teams Reinsurance Accountant Relationship Specialty Start Date End Date Kev Begum MD [address] [place] [address] PCP - General 08/30/02 documented as of this encounter
--- OUTSIDE RECORDS SUMMARY | 2025-03-12 09:11 | XMS_ITS | Encounter Summary ---
Author Organization [facility] Address [address] [place] [address] Care Team Providers Care Tax Assistant Name Role Phone Kev Begum MD Primary Care Provider [phone] Encounter Details Date Type Department Care Team (Latest Contact Info) Description 05/10/2002 Outpatient [facility] G[facility]- [place] [address] [place] [address] Brant Durán MD [address] [place] [address] ABNORMAL LIVER FUNCTION STUDY (Primary Dx) Social History Tobacco Use Types Packs/Day Years Used Date Smoking Tobacco: Never Assessed Comments Unknown Sex and Gender Information Value Date Recorded Sex Assigned at Not on file Legal Sex Female 5:07 AM CLASP MACHINE OPERATOR Gender Identity Not on file Sexual Orientation Not on file documented as of this encounter Plan of Treatment Not on file documented as of this encounter Visit Diagnoses Diagnosis Nonspecific abnormal results of liver function study- Primary documented in this encounter Care Teams Tax Assistant Relationship Specialty Start Date End Date Kev Begum MD [address] [place] [address] PCP - General 08/30/02 documented as of this encounter
--- OUTSIDE RECORDS SUMMARY | 2025-03-12 09:11 | XMS_ITS | Encounter Summary ---
Author Organization [facility] Address [address] [place] [address] Care Team Providers Care Custom Garment Designer Name Role Phone Kev Begum MD Primary Care Provider [phone] Encounter Details Date Type Department Care Team (Late st Contact Info) Description 03/30/2002 Outpatient Historical [facility] O[facility] Ke[address] [place] [address] Sonali Whitehead MD [address] [facility] [place] [address] Gynecologic examination (Primary Dx); SCREENING MAL NEOP-RECTUM Social History Tobacco Use Types Packs/Day Years Used Date Smoking Tobacco: Never Assessed Comments Unknown Sex and Gender Information Value Date Recorded Sex Assigned at Not on file Legal Sex Female 5:07 AM OIL SPREADER OPERATOR Gender Identity Not on file Sexual Orientation Not on file documented as of this encounter Plan of Treatment Not on file documented as of this encounter Visit Diagnoses Diagnosis Gynecologic examination- Primary Gynecological examination Screening for malignant neoplasm of the rectum documented in this encounter Care Teams Custom Garment Designer Relationship Specialty Start Date End Date Kev Begum MD [address] [place] [address] PCP - General 08/30/02 documented as of this encounter
--- OUTSIDE RECORDS SUMMARY | 2025-03-12 09:11 | XMS_ITS | Encounter Summary ---
Author Organization [facility] Address [address] [place] [address] Care Team Providers Care Sanitation Technician Name Role Phone Kev Begum MD Primary Care Provider [phone] Encounter Details Date Type Department Care Team (Latest Contact Info) Description 04/12/2002 Outpatient Historical [facility]- [facility] [address] [place] [address] Jayden Vanegas MD NO ADDRESS ON FILE SEBORRHEIC KERATOSIS NOS (Primary Dx); Benign alfa skin leg; BENIGN ALFA SKIN FACE NEC Social History Tobacco Use Types Packs/Day Years Used Date Smoking Tobacco: Never Assessed Comments Unknown Sex and Gender Information Value Date Recorded Sex Assigned at Not on file Legal Sex Female 5:07 AM ELECTROMECHANIC Gender Identity Not on file Sexual Orientation Not on file documented as of this encounter Plan of Treatment Not on file documented as of this encounter Visit Diagnoses Diagnosis Other seborrheic keratosis- Primary Benign alfa skin leg Benign neoplasm of skin of lower limb, including hip Benign neoplasm of skin of other and unspecified parts of face documented in this encounter Care Teams Sanitation Technician Relationship Specialty Start Date End Date Kev Begum MD [address] [place] [address] PCP - General 08/30/02 documented as of this encounter
--- OUTSIDE RECORDS SUMMARY | 2025-03-12 09:11 | XMS_ITS | Encounter Summary ---
Author Organization [facility] Address [address] [place] [address] Care Team Providers Care Veneer Puller Name Role Phone Kev Begum MD Primary Care Provider [phone] Encounter Details Date Type Department Care Team (Late st Contact Info) Description 08/29/2006 Outpatient Historical [facility] [place] [address] [place] [address] Adelaide Ramos MD NO ADDRESS ON FILE Other Screening Mammogram (Primary Dx) Social History Tobacco Use Types Packs/Day Years Used Date Smoking Tobacco: Never Assessed Comments Unknown Sex and Gender Information Value Date Recorded Sex Assigned at Not on file Legal Sex Female 5:07 AM CEMENT GUN OPERATOR Gender Identity Not on file Sexual Orientation Not on file documented as of this encounter Plan of Treatment Not on file documented as of this encounter Visit Diagnoses Diagnosis Other screening mammogram- Primary documented in this encounter Care Teams Veneer Puller Relationship Specialty Start Date End Date Kev Begum MD [address] [address] PCP - General 08/30/02 documented as of this encounter
--- OUTSIDE RECORDS SUMMARY | 2025-03-12 09:11 | XMS_ITS | Encounter Summary ---
Author Organization [facility] Address [address] [place] [address] Care Team Providers Care Building Trades Teacher Name Role Phone Kev Begum MD Primary Care Provider [phone] Encounter Details Date Type Department Care Team (Late st Contact Info) Description 07/09/2002 Outpatient [facility] Int [facility] [address] [place] [address] Kev Begum MD [address] [place] [address] Pain in limb (Primary Dx) Social History Tobacco Use Types Packs/Day Years Used Date Smoking Tobacco: Never Assessed Comments Unknown Sex and Gender Information Value Date Recorded Sex Assigned at Not on file Legal Sex Female 5:07 AM BAR CATCHER Gender Identity Not on file Sexual Orientation Not on file documented as of this encounter Plan of Treatment Not on file documented as of this encounter Visit Diagnoses Diagnosis Pain in limb- Primary Pain in soft tissues of limb documented in this encounter Care Teams Building Trades Teacher Relationship Specialty Start Date End Date Kev Begum MD [address] [place] [address] PCP - General 08/30/02 documented as of this encounter
--- OUTSIDE RECORDS SUMMARY | 2025-03-12 09:11 | XMS_ITS | Encounter Summary ---
Author Organization [facility] Address [address] [place] [address] Care Team Providers Care Instructor Product Inspection Name Role Phone Kev Begum MD Primary Care Provider [phone] Encounter Details Date Type Department Care Team (Late st Contact Info) Description 06/12/2002 Outpatient Historical [facility] [place] [address] [place] [address] Inez Wheeler, [address] [place], [place] [id number] INSECT BITE NEC (Primary Dx); CELLULITIS, TOE NOS Social History Tobacco Use Types Packs/Day Years Used Date Smoking Tobacco: Never Assessed Comments Unknown Sex and Gender Information Value Date Recorded Sex Assigned at Not on file Legal Sex Female 5:07 AM TOMATO PULPER OPERATOR Gender Identity Not on file Sexual Orientation Not on file documented as of this encounter Plan of Treatment Not on file documented as of this encounter Visit Diagnoses Diagnosis Other, multiple, and unspecified sites, insect bite, nonvenomous, without mention of infection(919.4)- Primary Other, multiple, and unspecified sites, insect bite, nonvenomous, without mention of infection Cellulitis and abscess of toe, unspecified documented in this encounter Care Teams Instructor Product Inspection Relationship Specialty Start Date End Date Kev Begum MD [address] [place] [address] PCP - General 08/30/02 documented as of this encounter
--- OUTSIDE RECORDS SUMMARY | 2025-03-12 09:11 | XMS_ITS | Encounter Summary ---
Author Organization [facility] Address [address] [place] [address] Care Team Providers Care Nursing Administrator Name Role Phone Kev Begum MD Primary Care Provider [phone] Encounter Details Date Type Department Care Team (Late st Contact Info) Description 03/30/2001 Outpatient [facility] Int [facility] [address] [place] [address] Kev Begum MD [address] [place] [address] Abdominal pain, unspecified site (Primary Dx); Other blood disease Social History Tobacco Use Types Packs/Day Years Used Date Smoking Tobacco: Never Assessed Comments Unknown Sex and Gender Information Value Date Recorded Sex Assigned at Not on file Legal Sex Female 5:07 AM SHOCK ABSORBER INSTALLER Gender Identity Not on file Sexual Orientation Not on file documented as of this encounter Plan of Treatment Not on file documented as of this encounter Visit Diagnoses Diagnosis Abdominal pain, unspecified site- Primary Other blood disease Other specified diseases of blood and blood-forming organs documented in this encounter Care Teams Nursing Administrator Relationship Specialty Start Date End Date Kev Begum MD [address] [place] [address] PCP - General 08/30/02 documented as of this encounter
--- OUTSIDE RECORDS SUMMARY | 2025-03-12 09:11 | XMS_ITS | Encounter Summary ---
Author Organization [facility] Address [address] [place] [address] Care Team Providers Care Pay Per Click Strategist Name Role Phone Kev Begum MD Primary Care Provider [phone] Encounter Details Date Type Department Care Team (Latest Contact Info) Description 09/29/2006 Outpatient [facility]iat[facility] [address] [place] [address] oLs Humphreys DPM NO ADDRESS ON FILE Plantar Fibromatosis (Primary Dx) Social History Tobacco Use Types Packs/Day Years Used Date Smoking Tobacco: Never Assessed Comments Unknown Sex and Gender Information Value Date Recorded Sex Assigned at Not on file Legal Sex Female 5:07 AM BI LEAD Gender Identity Not on file Sexual Orientation Not on file documented as of this encounter Plan of Treatment Not on file documented as of this encounter Visit Diagnoses Diagnosis Plantar fibromatosis- Primary Plantar fascial fibromatosis documented in this encounter Care Teams Pay Per Click Strategist Relationship Specialty Start Date End Date Kev Begum MD [address] [place] [address] PCP - General 08/30/02 documented as of this encounter
--- OUTSIDE RECORDS SUMMARY | 2025-03-12 09:11 | XMS_ITS | Clinical Summary ---
Author Organization [facility] Kelvin cespedes Keegan Address [address] [place] [address] Phone Care Team Providers Care Nail Artist Name Role Phone Manuela Reynolds MD Primary Care Provider Allergies No known active allergies Medications multivitamin (DAILY-JAN) tablet Take 1 Tablet by mouth daily. 9 Active fluticasone propionate (FLONASE) 50 mcg/spray [place], Suspension nasal inhaler 3 Active SUMAtriptan (IMITREX) 50 mg tablet Take 1 Tablet (50 mg) by mouth every 2 hours as needed for Migraine. 9 Tablet 3 3 Active ALPRAZolam (XANAX) 0.25 mg tabletIndicatio ns:Anxiety state TAKE ONE TABLET BY MOUTH 2 TIMES DAILY NEEDED FOR ANXIETY 30 Tablet 5 Active hydrOXYzine HCL (ATARAX) 25 mg tablet Take 1 Tablet (25 mg) by mouth 2 times daily as needed for Itching. 60 Tablet 10 5 Active semaglutide (OZEMPIC SUBCUT) Inject by subcutaneous injection. Active ergocalciferol (VITAMIN D2) 50,000 unit capsule Take 1 Capsule (50,000 Units) by mouth every 7 days. 6 Capsule 3 5 Active Active Problems Problem Noted Date Diagnosed Date Recurrent major depressive disorder, in partial remission 05/10/2023 Anxiety state 05/10/2023 Atrophic vaginitis 05/20/2022 Vaginal discharge 05/20/2022 Hypocalcemia 08/09/2021 Family history of breast cancer 08/31/2020 Hyperparathyroidism, unspecified 01/21/2020 Osteopenia of multiple sites 04/22/2019 History of migraine 04/22/2019 H/O compression fracture of spine 04/22/2019 History of primary hyperparathyroidism 9 S/P parathyroidectomy 04/22/2019 Personal history of DVT (deep vein thrombosis) 0 04/18/2017 Closed compression fracture of first lumbar vert ebra 01/09/2017 ADHD (attention deficit hyperactivity disorder) 01/21/2014 Carpal tunnel syndrome 08/19/2008 Personal history of malignant melanoma of skin Migraine with aura Resolved Problems Problem Noted Date Diagnosed Date Resolved Date Abnormal liver function test 08/09/2021 05/10/2023 Abnormal finding on GI tract imaging 09/03/2018 05/10/2023 Overview (12/28/2020): Mass vs adherent stool in cecum. Medication monitoring encounter 01/28/2017 02/06/2017 Acute deep vein thrombosis ( DVT) of distal vein of left lower extremity 01/09/2017 04/21/2018 Colon cancer screening 05/16/201404/15 Macrocytosis 09/12/2008 09/12/2008 Cellulitis 02/22/2008 09/12/2008 Peptic ulcer, unspecified si te, unspecified as acute or chronic, without mention of hemorrhage, perforation, or obstruction 04/21/2018 Osteoporosis, unspecified Other specified diseases of blood and blood-forming organs(289.89) 09/12/2008 Encounters Date Type Department Care Team Description 02/15/2025 External Device Data STL ABSTRACTION Provider, Abstract 01/25/2025 1:44 PM CDT Anesthesia Event [facility] Endoscopy [address] [place] [address] Avtar Myers MD Le, Andrew N, AA 01/25/2025 12:20 PM CDT - 01/25/2025 12:40 PM CDT Surgery [facility] Endoscopy [address] [place] [address] Robinson Zelaya MD COLONOSCOPY 01/25/2025 11:54 AM CDT - 01/25/2025 2:46 PM CDT Hospital Encounter [facility] Endoscopy [address] [place] [phone] Robinson Zelaya MD Discharge Disposition: Home or Self Care 01/21/2025 2:00 PM CDT - 01/21/2025 11:59 PM CDT Hospital Encounter [facility] [address] [place] [phone] Linda Osborne MD [facility] (hyperparathyroidis m) Discharge Disposition: Home or Self Care 01/20/2025 External Device Data STL ABSTRACTION Provider, Abstract 01/19/2025 External Device Data STL ABSTRACTION Provider, Abstract 01/18/2025 External Device Data STL ABSTRACTION Provider, Abstract 01/14/2025 10:30 AM CDT Office Visit [facility] [address] [place] [address] Linda Osborne MD [facility] (hyperparathyroidis m) (Primary Dx); Hypovitaminosis D; S/P parathyroidectomy; H/O compression fracture of spine; Hyperparathyroidism , unspecified; Senile osteoporosis 12/17/2024 Results Follow-Up [facility] [address] [address] Linda Osborne MD MAMMO 3D DWAYNE SCREEN BILAT W OR WO CAD from Last 3 Months Immunizations Immunization Administration Dates Next Due (ADACEL/BOOSTRIX)(10 [...] Cancer Father Lung Cancer Father Healthy Mother Rody Carter Osteoporosis Mother Rody Carter Other Mother Rody Carter hyperparathyroi dism Colon Cancer Other Breast Cancer Paternal Aunt unknown age Breast Cancer Paternal Cousin positive re sponse to counselor- see media tab Breast Cancer Paternal Grandmother Paternal Au nt Pily Carter unknown age Liver Disease Sister 1 Other Sister 1 alcoholism Other Sister 2 Healthy Son Melanoma Neg Hx Ovarian Cancer Neg Hx Pancreatic Cancer Neg Hx Uterine or Endometrial Cancer, Not Including Cervical Neg Hx Relation Name Status Comments Brother Alive Daughter Alive Father Mother Rdoy Carter Alive Other Paternal Aunt Paternal Cousin Paternal Grandmother Paternal Aunt Pily Carter Alive Sister 1 Sister 2 Son Alive Social History Tobacco Use Types Packs/Day Years Used Date Smoking Tobacco: Never Smokeless Tobacco: Never Tobacco Cessation:Counseling Given: Not Answered Alcohol Use Standard Drinks/Week Comments Not Currently 6 (1 standard drink = 0.6 oz pur e alcohol) Financial Resource Strain Answer Date R ecorded How hard is it for you to pa y for the very basics like food, housing, medical care, and heating? Patient declined 05/07/2022 Food Insecurity Answer Date Recorded In the past 12 months, have you worried that your food would run out before you had money to buy more? Patient declined 2021 In the past 12 months, did y ou run out of food and didn't have money to buy more? Patient declined 05/07/2022 Transportation Needs Answer Date Record ed In the past 12 months, has l ack of transportation kept you from medical appointments or from getting medications? Patient declined 05/07/2022 Lack of Transportation (Non-Medical) Not on file 05/07/2022 Feeling Safe Answer Date Recorded Are you in a relationship wi th someone who hurts you emotionally and/or physically? No 01/25/2025 Comments No Sex and Gender Information Value Date Recorded Sex Assigned at Not on file Legal Sex Female 12:28 PM LABEL STITCHER Gender Identity Not on file Sexual Orientation Not on file Last Filed Vital Signs Vital Sign Reading Time Taken Comments Blood Pressure 118/78 01/25/2025 2:28 PM CDT Pulse 84 01/25/2025 2:18 PM CDT Temperature 36.7 C (98.1 F) 01/21/2025 2:05 PM CDT Respiratory Rate 18 01/25/2025 2:28 PM CDT Oxygen Saturation 99% 01/25/2025 2:28 PM CDT Inhaled Oxygen Concentration - - Weight 62.1 kg (137 lb) 01/14/2025 10:27 AM CDT Height 162.6 cm (5' 4 ) 01/14/2025 10:27 AM CDT Body Mass Index 23.52 01/14/2025 10:27 AM CDT Plan of Treatment Upcoming Encounters Date Type Department Care Team (Late st Contact Info) Description 04/28/2025 11:00 AM CDT Office Visit [facility] [place] [address] [place] [address] Sonali Whitehead MD [address] [place] [address] 05/27/2025 11:00 AM CDT Office Visit [facility] Int [facility] [address] [place] [address] Manuela Reynolds MD [address] [place] [address] 07/11/2025 1:00 PM LABEL STITCHER Office Visit [facility] Endocrinology [facility] [address] [place] [address] Linda Osborne MD [address] [place] [address] 08/04/2025 2:00 PM LABEL STITCHER Appointment [facility] [address] [place] [address] Health Maintenance Due Date Last Done Comments FIT/ DNA Q 3 YEARS (AUTO ORDER) 1967 FIT/FOBT Q 1 YEAR (AUTO ORDER) 1967 FIT-DNA Q 3 years 1994 FIT/FOBT Q 1 year 1994 Flex Sig/CT Colonography Q 5 years 1994 FLEX SIG/CT COLONOGRAPHY Q 5 YEARS (AUTO ORDER) 04/26/2008 04/26/2003, 04/26/2003 ZOSTER VACCINE (2 of 3) 05/20/2015 03/25/2015 DTAP/TDAP/TD VACCINES (2 - T d or Tdap) 03/13/2023 03/13/2013, 03/13/2013, 08/04/2003 RSV VACCINE (60+ or ) (1 - 1-dose 75+ series) 2024 INFLUENZA VACCINE (#1) 2025 4, 05/09/2023, 07/07/2019, Additional history exists Traditional Medicare (ACO) A nnual Wellness Visit 05/26/2025 05/25/2024, 05/09/2023, 05/07/2022 OSTEOPOROSIS SCREENING 07/09/2029 4, 07/09/2024, 07/04/2022, Additional history exists COLORECTAL CANCER SCREENING (AUTO ORDER) 01/25/2035 01/25/2025, 01/25/2025, 09/03/2018, Additional history exists COLORECTAL SCREENING 01/25/2035 01/25/2025, 01/25/2025, 09/03/2018, Additional history exists Colorectal Cancer Screening (AUTO ORDER) 01/25/2035 Colorectal Cancer Screening 01/25/2035 PNEUMOCOCCAL VACCINE 50+ YEARS Completed 04/11/2015 , 04/08/2014 Procedures Procedure Name Priority Date/Time Associated Diagnosis Comments COLONOSCOPY REPORT 01/25/2025 2: 05 PM CDT [place] COLONOSCOPY FLX DX W/COLLJ SPEC WHEN PFRMD 01/25/2025 12:20 PM CDT Change in bowel function Lower abdominal pain Case Notes 2 day prep ls Procedure :COLON Special Notes:POSSIBLE 2 DAY PREP Dx: Change in bowel function Lower abdominal pain BT:NONE BT managed by: Diabetic: NO Diabetic/WT med:Ozempic (Semaglutide) Procedure Loc & Reason (hosp):Hosp/MEDS BMI:23.64 Last Procedure date & location 09/03/18 Leeanna colon Referring Provider MANUELA REYNOLDS GI Doc:Any Insurance: [facility] Last GI appt N/A COMPREHENSIVE METABOLIC PANEL Routine 01/11/2025 1:57 PM CDT [facility] (hyperparathyroidi sm) Hypovitaminosis D S/P parathyroidectomy H/O compression fracture of spine Osteopenia of multiple sites Senile osteoporosis XR DEXA BONE DENSITY AXIAL 1 OR MORE SITES Routine 07/09/2024 12:55 PM LABEL STITCHER [facility] (hyperparathyroidi sm) Hypovitaminosis D Hyperparathyroidis m, unspecified S/P parathyroidectomy H/O compression fracture of spine Osteopenia of multiple sites History of primary hyperparathyroidis m Abnormal liver function test from Last 3 Months or Most Recently Relevant to Health Maintenance Results * COLONOSCOPY REPORT (01/25/2025 2:05 PM CDT) Narrative Procedure Note Robinson Zelaya MD - 01/25/2025 2:05 PM CDT [facility] GI Patient Name: Rody Johnson Procedure Date: 01/25/2025 Date of : 1950 Admit Type: Outpatient Age: 74 Attending MD: Robinson Zelaya MD, Procedure: Colonoscopy Indications: Lower abdominal pain, Change in bowel habits Providers: Robinson Zelaya MD Referring MD: Manuela Reynolds Medicines: Monitored Anesthesia Care Complications: No immediate complications. Procedure: Pre-Anesthesia Assessment: - Prior to the procedure, a History and Physical was performed, and patient medications and allergies were reviewed. The patient's tolerance of previous anesthesia was also reviewed. The risks and benefits of the procedure and the sedation options and risks were discussed with the patient. All questions were answered, and informed consent was obtained. Prior Anticoagulants: The patient has taken no anticoagulant or antiplatelet agents. ASA Grade Assessment: II - A patient with mild systemic disease. After reviewing the risks and benefits, the patient was deemed in satisfactory condition to undergo the procedure. After I obtained informed consent, the scope was passed under direct vision. Throughout the procedure, the patient's blood pressure, pulse, and oxygen saturations were monitored continuously. The Colonoscope was introduced through the anus and advanced to the terminal ileum, with identification of the appendiceal orifice and IC valve. The colonoscopy was performed without difficulty. The patient tolerated the procedure well. The quality of the bowel preparation was good. The terminal ileum, ileocecal valve, appendiceal orifice, and rectum were photographed. Estimated Blood Loss: Estimated blood loss: none. Findings: The terminal ileum appeared normal. Multiple small-mouthed diverticula were found in the sigmoid colon and descending colon. External hemorrhoids were found during retroflexion. The hemorrhoids were small. Impression: - The examined portion of the ileum was normal. - Diverticulosis in the sigmoid colon and in the descending colon. - External hemorrhoids. - No specimens collected. Recommendation: - Patient has a contact number available for emergencies. The signs and symptoms of potential delayed complications were discussed with the patient. Return to normal activities tomorrow. Written discharge instructions were provided to the patient. - Resume previous diet. - Continue present medications. - No repeat colonoscopies for screening purposes due to age. Robinson Zelaya MD 01/25/2025 2:05:39 PM Number of Addenda: 0 Note Initiated On: 01/25/2025 1:44 PM Scope Withdrawal Time 0 hours 7 minutes 33 seconds Scope In: 1:47:38 PM Scope Out: 2:03:11 PM [address] [place], [place] Robinson Zelaya MD GI PROCEDURE ORDERA BLES Final Result * (ABNORMAL) COMPREHENSIVE METABOLIC PANEL (01/11/2025 1:57 PM CDT) GLUCOSE 81 65 - 99 mg/dL [facility] Comment: Fasting reference interval BUN 13 7 - 25 mg/dL [facility] CREATININE 0.49(L) 0.60 - 1.00 mg/dL [facility] GFR 98 > OR = 60 mL/min/1.7 3m2 [facility] BUN/CREAT RATIO 27(H) 6 - 22 (calc) [facility] SODIUM 133(L) 135 - 146 mmol/L [facility] POTASSIUM 4.1 3.5 - 5.3 mmol/L [facility] CHLORIDE 99 98 - 110 mmol/L [facility] CO2 25 20 - 32 mmol/L [facility] CALCIUM 8.9 8.6 - 10.4 mg/dL [facility] TOTAL PROTEIN 6.6 6.1 - 8.1 g/dL [facility] ALBUMIN 4.3 3.6 - 5.1 g/dL [facility] GLOBULIN 2.3 1.9 - 3.7 g/dL (calc) [facility] RR ALBUMIN/GLOBULIN RATIO 1.9 1.0 - 2.5 (calc) [facility] RR BILIRUBIN TOTAL 0.8 0.2 - 1.2 mg/dL [facility] ALKALINE PHOSPHATASE 43 37 - 153 U/L [facility] AST 13 10 - 35 U/L [facility] ALT 15 6 - 29 U/L [facility] Comment: FASTING:YES FASTING: YES Test Performed at: [facility] [address] [place] [address] Sameer Garcia Blood 01/11/2025 1:57 PM CDT 01/11/2025 1:57 PM CDT us Linda Osborne MD CHEMISTRY ORDERABLES Final Resul t [facility] [phone] [facility] [address] [place] [address] * XR DEXA BONE DENSITY AXIAL 1 OR MORE SITES (07/09/2024 12:55 PM LABEL STITCHER) Anatomical Region Laterality Modality Nuclear Medicine 07/09/2024 12:5 5 PM LABEL STITCHER Impressions 07/09/2024 1:58 PM LABEL STITCHER IMPRESSION: Fairly stable abnormal examination demonstrating osteopenia just above the average of the patient's age-matched control without important change by comparison. Bone density lies significantly below the range expected for age in the left distal radius and is unchanged. Consider assessing fracture risk using the FRAX analysis tool for guidance of clinical management available online at www.shef.ac.uk/FRAX/. [employer] for Select DXA and the Femoral Neck BMD value. Narrative 07/09/2024 1:58 PM LABEL STITCHER DEXA Evaluation of the Lumbar Spine and left forearm and Left Proximal Femur Reason for Consultation: Hyperparathyroidism. Evaluation of bone mineral density. The following absorptiometry data were obtained. The quality of this examination is acceptable with regards to count density, processed images, data display and lack of important artifacts (including but not limited to motion and attenuation artifacts). Serial examination number six with comparison to the prior exam of 07/04/2022. Note: Lumbar level determination differs from that previously determined. L3-L4 BMD (g/cm2): 1.070 Adult T-score: -1.1 Adult Z-score: 0.8 Left radius ultra distal/33%/total BMD (g/cm2): 0.219/0.428/0.328 Adult T-score: -4.3/-4.0/-4.5 Adult Z-score: -2.0/-1.7/-2.2 Left femoral neck/total hip BMD (g/cm2): 0.97/0.805 Adult T-score: -1.0/-1.6 Adult Z-score: 1.0/0.2 Procedure Note Alfredo Wise MD - 07/09/2024 DEXA Evaluation of the Lumbar Spine and left forearm and Left Proximal Femur Reason for Consultation: Hyperparathyroidism. Evaluation of bone mineral density. The following absorptiometry data were obtained. The quality of this examination is acceptable with regards to count density, processed images, data display and lack of important artifacts (including but not limited to motion and attenuation artifacts). Serial examination number six with comparison to the prior exam of 07/04/2022. Note: Lumbar level determination differs from that previously determined. L3-L4 BMD (g/cm2): 1.070 Adult T-score: -1.1 Adult Z-score: 0.8 Left radius ultra distal/33%/total BMD (g/cm2): 0.219/0.428/0.328 Adult T-score: -4.3/-4.0/-4.5 Adult Z-score: -2.0/-1.7/-2.2 Left femoral neck/total hip BMD (g/cm2): 0.97/0.805 Adult T-score: -1.0/-1.6 Adult Z-score: 1.0/0.2 IMPRESSION: Fairly stable abnormal examination demonstrating osteopenia just above the average of the patient's age-matched control without important change by comparison. Bone density lies significantly below the range expected for age in the left distal radius and is unchanged. Consider assessing fracture risk using the FRAX analysis tool for guidance of clinical management available online at www.shef.ac.uk/FRAX/. [employer] for Select DXA and the Femoral Neck BMD value. Linda Osborne MD DIAGNOSTIC IMAGING ORDERABLES Fi nal Result from Last 3 Months or Most Recently Relevant to Health Maintenance Insurance MEDICARE PART A AND B [facility] * Guarantor: RODY JOHNSON Account Type Relation to Patient Date of Phone Billing Address Personal/Family [address] [place] [address] [employer] (INTERNAL) [facility] Medicare Part D Advance Directives For more information, please contact: [phone] Documents on File Type Date Recorded Patient Senior Loan Officer Expl anation Advance Directive POA 04/25/2020 1:00 PM A dvance Directive POA * Full Code (Latest Code Status on File) Date Activated Date Inactivated Comments 01/25/2025 12:40 PM 01/25/2025 4:52 PM Care Teams Nail Artist Relationship Specialty Start Date End Date Manuela Reynolds MD [address] [phone] PCP - General Internal Medicine 09/10/22
--- OUTSIDE RECORDS SUMMARY | 2025-03-12 09:11 | XMS_ITS | Encounter Summary ---
Author Organization [facility] Address [address] [place] [address] Care Team Providers Care Room Service Waiter/Waitress Name Role Phone Kev Begum MD Primary Care Provider [phone] Encounter Details Date Type Department Care Team (Latest Contact Info) Description 08/09/2002 Outpatient Historical [facility] [address] [place] [address] Jayden Vanegas MD NO ADDRESS ON FILE MALIG NEOPLASM SKIN FACE NEC (Primary Dx); SEBACEOUS CYST Social History Tobacco Use Types Packs/Day Years Used Date Smoking Tobacco: Never Assessed Comments Unknown Sex and Gender Information Value Date Recorded Sex Assigned at Not on file Legal Sex Female 5:07 AM 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
--- OUTSIDE RECORDS SUMMARY | 2025-03-12 09:11 | XMS_ITS | Encounter Summary ---
Author Organization [facility] Address [address] [place] [address] Care Team Providers Care Coding Consultant Name Role Phone Kev Begum MD Primary Care Provider [phone] Encounter Details Date Type Department Care Team (Latest Contact Info) Description 04/03/2000 Outpatient Historical [facility] Dermatology- [facility] Keegan [address] [place] [address] Jayden Vanegas MD NO ADDRESS ON FILE Malig leta skin leg (Primary Dx); Other seborrheic keratosis; Other dyschromia Social History Tobacco Use Types Packs/Day Years Used Date Smoking Tobacco: Never Assessed Comments Unknown Sex and Gender Information Value Date Recorded Sex Assigned at Not on file Legal Sex Female 5:07 AM 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
--- OUTSIDE RECORDS SUMMARY | 2025-03-12 09:11 | XMS_ITS | Encounter Summary ---
Author Organization [facility] Address [address] [place] [address] Care Team Providers Care Oil Extractor Name Role Phone Kev Begum MD Primary Care Provider [phone] Encounter Details Date Type Department Care Team (Latest Contact Info) Description 08/09/2002 Outpatient Historical [facility] [address] [place] [address] Jayden Vanegas MD NO ADDRESS ON FILE MALIG NEOPLASM SKIN FACE NEC (Primary Dx) Social History Tobacco Use Types Packs/Day Years Used Date Smoking Tobacco: Never Assessed Comments Unknown Sex and Gender Information Value Date Recorded Sex Assigned at Not on file Legal Sex Female 5:07 AM GLASS SMOOTHER Gender Identity Not on file Sexual Orientation Not on file documented as of this encounter Plan of Treatment Not on file documented as of this encounter Visit Diagnoses Diagnosis 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
--- OUTSIDE RECORDS SUMMARY | 2025-03-12 09:11 | XMS_ITS | Encounter Summary ---
Author Organization [facility] Address [address] [place]: [place] [address] Care Team Providers Care Client Solutions Specialist Name Role Phone Kev Begum MD Primary Care Provider [phone] Encounter Details Date Type Department Care Team (Late st Contact Info) Description 04/12/2002 Outpatient Historical Sonali Whitehead MD [address] [facility] [place] [phone] Social History Tobacco Use Types Packs/Day Years Used Date Smoking Tobacco: Never Assessed Comments Unknown Sex and Gender Information Value Date Recorded Sex Assigned at Not on file Legal Sex Female 5:07 AM GMAT TUTOR Gender Identity Not on file Sexual Orientation Not on file documented as of this encounter Plan of Treatment Not on file documented as of this encounter Visit Diagnoses Not on filedocumented in this encounter Care Teams Client Solutions Specialist Relationship Specialty Start Date End Date Kev Begum MD [address] [facility] [address] [place] [phone] PCP - General 08/30/02 documented as of this encounter
--- OUTSIDE RECORDS SUMMARY | 2025-03-12 09:11 | XMS_ITS | Encounter Summary ---
Author Organization [facility] Address [address] [place] [address] Care Team Providers Care Ink Maker Name Role Phone Kev Begum MD Primary Care Provider [phone] Encounter Details Date Type Department Care Team (Latest Contact Info) Description 11/26/2002 Outpatient [facility] Facial Plastic Surgery[address] [place] [address] Kenroy Trotter MD NO ADDRESS ON FILE SKIN HYPERTRO/ATROPH NEC (Primary Dx) Social History Tobacco Use Types Packs/Day Years Used Date Smoking Tobacco: Never Assessed Comments Unknown Sex and Gender Information Value Date Recorded Sex Assigned at Not on file 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
--- OUTSIDE RECORDS SUMMARY | 2025-03-12 09:11 | XMS_ITS | Encounter Summary ---
Author Organization [facility] Address [address] [place] [address] Care Team Providers Care Metal Burnisher Name Role Phone Kev Begum MD Primary Care Provider [phone] Encounter Details Date Type Department Care Team (Late st Contact Info) Description 05/21/2001 Outpatient [facility] Int [facility] [address] [place] [address] Kev Begum MD [address] [place] [address] Nonspecific abnormal results of liver function study (Primary Dx) Social History Tobacco Use Types Packs/Day Years Used Date Smoking Tobacco: Never Assessed Comments Unknown Sex and Gender Information Value Date Recorded Sex Assigned at Not on file 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
--- OUTSIDE RECORDS SUMMARY | 2025-03-12 09:11 | XMS_ITS | Encounter Summary ---
Author Organization [facility] Address [address] [place] [address] Care Team Providers Care Motor Home Electrical Foreman Name Role Phone Kev Begum MD Primary Care Provider [phone] Encounter Details Date Type Department Care Team (Latest Contact Info) Description 08/30/[address] [facility] 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
--- OUTSIDE RECORDS SUMMARY | 2025-03-12 09:11 | XMS_ITS | Encounter Summary ---
Author Organization [facility] Address [address] [place] [address] Care Team Providers Care Retail Loan Officer Name Role Phone Kev Begum MD Primary Care Provider [phone] Encounter Details Date Type Department Care Team (Latest Contact Info) Description 08/29/2006 Outpatient [facility] [place] [place] [address] Kev Begum MD [address] [place] [address] Disorder of Bone and Cartilage, Unspecified (Primary Dx); Asymptomatic Postmenopausal Status (Age-Related) (Natural); Encounter for Long-Term (Current) Use of Other Medications Social History Tobacco Use Types Packs/Day Years Used Date Smoking Tobacco: Never Assessed Comments Unknown Sex and Gender Information Value Date Recorded Sex Assigned at Not on file Legal Sex Female 5:07 AM MEDICAL COLLECTIONS Gender Identity Not on file Sexual Orientation Not on file documented as of this encounter Plan of Treatment Not on file documented as of this encounter Visit Diagnoses Diagnosis Disorder of bone and cartilage, unspecified- Primary Asymptomatic postmenopausal status (age-related) (natural) Encounter for long-term (current) use of other medications documented in this encounter Care Teams Retail Loan Officer Relationship Specialty Start Date End Date Kev Begum MD [address] [place] [address] PCP - General 08/30/02 documented as of this encounter
[2025-03-12 09:12] VITALS: BP 115/96; PULSE 80; RESP 16; TEMP 36.6; O2SAT 98; BMI 21.9
--- NOTE | 2025-03-12 09:23 | XRR_ITS ---
PROCEDURE INFORMATION: Exam: XR Left Ankle Exam date and time: 03/12/2025 9:46 AM Age: 74 years old Clinical indication: Pain; Ankle; Left TECHNIQUE: Imaging protocol: Radiologic exam of the left ankle. Views: 3 or more views. COMPARISON: No relevant prior studies available. FINDINGS: Bones/joints: Normal. Soft tissues: Normal. XR/XR ankle LT min 3V* [id number] IMPRESSION: No acute findings.
--- NOTE | 2025-03-12 09:23 | USR_ITS ---
PROCEDURE INFORMATION: Exam: US Duplex Left Lower Extremity Veins, Limited Exam date and time: 03/12/2025 10:06 AM Age: 74 years old Clinical indication: Pain; Leg, lower; Left; Additional info: Pain swelling TECHNIQUE: Imaging protocol: Real-time duplex ultrasound of the left extremity with 2-D hernandez scale, color Doppler flow and spectral waveform analysis including responses to compression and other maneuvers (when performed) with image documentation. Limited exam focused on the left lower extremity veins. COMPARISON: CR (LOW EXM, ) 03/12/2025 9:46 AM FINDINGS: Left deep veins: Unremarkable. The common femoral, femoral, proximal profunda femoral and popliteal veins are patent without thrombus. Normal Doppler waveforms. Normal compressibility and/or augmentation response. Superficial veins: Greater saphenous vein at the saphenofemoral junction is patent without thrombus. Soft tissues: Unremarkable. US/[place] [id number] IMPRESSION: No evidence of deep vein thrombosis.
[2025-03-12 09:43] LABS: Hematocrit 41.3 % (36-47); Hemoglobin 14.20 g/dL (11.27-16.99); Mean Corpuscular HGB Conc 34.4 g/dL (30-55); Mean Corpuscular Hemoglobin 33.3 pg (27-33); Mean Corpuscular Volume 96.7 fl (85-98); Nucleated Red Blood Cells % 0 %; Platelet Count 334 10^3/cmm (157-399); Red Blood Count 4.27 10^6/uL (3.85-5.65); White Blood Count 6.87 10^3/uL (3.29-11.43)
[2025-03-12 10:01] LABS: Alanine Aminotransferase 23 U/L (0-33); Albumin Level 4.2 g/dL (3.5-5.2); Alkaline Phosphatase 67 U/L (35-105); Anion Gap 17.5 (5-19); Aspartate Amino Transferase 18 U/L (0-32); Blood Urea Nitrogen 12 mg/dL (8-23); Calcium 8.7 mg/dL (8.5-10.5); Carbon Dioxide 23 mmol/L (22-29); Chloride 99 mmol/L (98-107); Globulin 2.6 g/dL (1.3-4.6); Glucose 94 mg/dL (65-115); Osmolality Calculated 280 mOsm/kg (285-295); Potassium 4.5 mmol/L (3.5-5.1); Sodium 135 mmol/L (136-145); Total Protein 6.8 g/dL (6.6-8.7)
[2025-03-12 10:06] LABS: Creatinine Clr Calc Pharmacy 59.8169
--- NOTE | 2025-03-12 10:20 | ED_ITS ---
HPI - Extremity Problem 2 General: Chief complaint: Extremity Injury, Lower Stated complaint: left leg pain Time Seen by Provider: 03/12/25 09:00 History of Present Illness: 74-year-old female presents emergency ro om complaining of left leg pain. On February 18 she [place]asion to the anterior tibia of the left lower leg. She was on some topical and oral antibiotics for 10 days thought she had a cellulitis she returned it did not seem completely healed and she was given Rocephin and then a course of Bactrim. She states there is still some swelling and discomfort despite these treatments. No fever sweats or chills. She has noticed some mild calf tenderness as well. No chest pain no shortness of breath Associated symptoms: Deny chest pain, fever(s) or rash Related Data Previous Rx's ?Medication ?Instructions ?Recorded doxycycline hyclate 100 mg tablet 100 mg PO BID 10 day s #20 tabs 02/26/25 mupirocin 2 % topical ointment 1 applic topical TID ce llulitis 02/26/25 #15 grams Allergies Allergy/AdvReac Type Severity Reaction Status Date / Time No Known Allergies Allergy Unverified 02/26/25 10:15 Review of Systems 2 Const: Denies: fever(s) or chills Card: Denies: chest pain Resp: Denies: dyspnea GI: Denies: abdominal pain : Denies: dysuria, urinary frequency or urinary urgency Musc: Denies: neck pain or back pain Skin/Breast: Denies: rash PFSH ED 2 PFSH: Social History Smoking and tobacco/nicotine status: never used tobacco/nicotine Physical Exam 2 Const: COMMON NORMALS: no acute distress GENERAL APPEARANCE: cooperative and comfortable ORIENTATION/CONSCIOUSNESS: Yes awake, Yes oriented to person, Yes oriented to place and Yes oriented to time HENMT: COMMON NORMALS: normocephalic, atraumatic and hearing grossly normal bilaterally HEAD & SCALP: normocephalic and atraumatic Resp: COMMON NORMALS: normal respiratory effort, No retractions, No use of accessory muscles and clear to auscultation bilaterally AUSCULTATION: clear to auscultation bilaterally Cardio: COMMON NORMALS: regular rate, regular rhythm and No murmurs present (Cardio) RATE: regular rate RHYTHM: regular rhythm GI: COMMON NORMALS: Soft to palpation and No hepatosplenomegaly present A USCULTATION: Yes normoactive bowel sounds PALPATION: Yes Soft to palpation, No Tenderness to palpation present (GI), No Guarding due to palpation present (GI) and Yes No hepatosplenomegaly present Extremity: OTHER: Healing eschar with no redness or inflammation some chronic boggy edema around the ankle no induration no drainage. Eschar is clean and dry Neuro: SENSORIUM/ORIENTATION: Yes oriented to person, Yes oriented to place and Yes oriented to time Skin: COMMON NORMALS: no rashes or lesions noted GENERAL SKIN EXAM: no rashes or lesions noted Course 2 Vital Signs: Vital signs: Vital Signs Temperature 97.9 F 03/12/25 09:12 Pulse Rate 64 03/12/25 10:41 Respiratory Rate 16 03/12/25 09:12 Blood Pressure 115/96 03/12/25 10:41 Pulse Oximetry 97 03/12/25 10:41 Oxygen Delivery Me thod Room Air 03/12/25 09:12 MDM - Extremity (Nontraumatic) Medical Decision Making Plain x-ray of the left ankle negative. Ultrasound for venous duplex in the left lower leg was also negative for DVT. White count normal CRP normal. Can apply topical antibiotic to the wound until culture result. Lab Data 03/12/25 09:28 03/12/25 09:28 Radiology Impressions Ankle X-Ray 03/12/25 09:23 IMPRESSION: No acute findings. Venous Duplex 03/12/25 09:23 IMPRESSION: No evidence of deep vein thrombosis. Laboratory Results WBC 6.87 10^3/uL (3.29-11.43) 03/12/25 09:28 RBC 4.27 10^6/uL (3.85-5.65) 03/12/25 09:28 Hgb 14.20 g/dL (11.27-16.99) 03/12/25 09:28 Hct 41.3 % (36-47) 03/12/25 09:28 MCV 96.7 fl (85-98) 03/12/25 09: MCH 33.3 pg (27-33) H 03/12/25 09: MCHC 34.4 g/dL (30-55) 03/12/25 09:28 RDW 11.9 % (12.1-15.1) L 03/12/25 09: Plt Count 334 10^3/cmm (157-399) 03/12/25 09: MPV 8.4 fL (7.4-10.4) 03/12/25 09: Neut % (Auto) 58.7 % 03/12/25 09: Lymph % (Auto) 31.0 % 03/12/25 09: [place] % (Auto) 8.0 % 03/12/25 09: Eos % (Auto) 1.6 % 03/12/25 09: Baso % (Auto) 0.6 % 03/12/25: Neut # (Auto) 4.03 10^3/uL (1.8-7.7) 03/12/25 09: Lymph # (Auto) 2.1 10^3/uL (0.8-4.8) 03/12/25: [place] # (Auto) 0.6 10^3/uL (0.2-0.9) 03/12/25 09: Eos # (Auto) 0.1 10^3/uL (0.0-0.8) 03/12/25 09: Baso # (Auto) 0.0 10^3/uL (0.0-0.1) 03/12/25 09: Nucleated RBC % (auto) 0 % 03/12/25: Nucleated RBCs # 0.0 /100WBC 03/12/25: Sodium 135 mmol/L (136-145) L 03/12/25 09: Potassium 4.5 mmol/L (3.5-5.1) 03/12/25 09: Chloride 99 mmol/L (98-107) 03/12/25 09: Carbon Dioxide 23 mmol/L (22-29) 03/12/25: Anion Gap 17.5 (5-19) 03/12/25 09: BUN 12 mg/dL (8-23) 03/12/25 09: Creatinine 0.4 mg/dL (0.5-0.9) L 03/12/25 09:28 GFR Calculation Not Reportable 03/12/25 09:28 Glucose 94 mg/dL (65-115) 03/12/25 09:28 Calculated Osmolality 280 mOsm/kg (285-295) L 03/12/25 09:28 Calcium 8.7 mg/dL (8.5-10.5) 03/12/25 09:28 Total Bilirubin 0.4 mg/dL (0.15-1.2) 03/12/25 09:28 AST 18 U/L (0-32) 03/12/25 09:28 ALT 23 U/L (0-33) 03/12/25 09:28 Alkaline Phosphatase 67 U/L (35-105) 03/12/25 09:28 C-Reactive Protein 3.0 mg/L (0.0-4.9) 03/12/25 09:28 Total Protein 6.8 g/dL (6.6-8.7) 03/12/25 09:28 Albumin 4.2 g/dL (3.5-5.2) 03/12/25 09:28 Globulin 2.6 g/dL (1.3-4.6) 03/12/25 09:28 All radiology interpretation(s) finalized by discharge Discharge Plan Discharge Patient Disposition: Home Clinical Impression: Ankle pain, left Condition: Stable Prescriptions: No Action doxycycline hyclate 100 mg tablet 100 mg PO BID 10 Days Qty: 20 0RF mupirocin 2 % ointment 1 applic topical TID Qty: 15 1RF Rx Instructions: apply and cover with warm moist compress for 15 minutes, 3 times daily Discharge Orders: Discharge ED (Routine); Ordered 03/12/25 Ordered By: David Villanueva Referrals: Manuela Segovia MD [Primary Care Provider, Internal Medicine] Discharge Diet: Usual diet Discharge Activity: Resume usual activity Patient Instructions: Opioid Safety, Pain Management, Patient Portal & Sandy Instructions Activity Restrictions/Additional Instructions: Thank you for choosing [facility] for your healthcare needs today. It is very important that you follow up as instructed or that you return to the Emergency Department should you have concerns or if your condition changes or worsens in any way. Your evaluated in the emergency room with complaint of left lower leg and ankle pain. Your x-ray did not show any fracture there is no sign of blood clot in your leg and there is no sign of infection at this time. You can continue to apply topical antibiotic ointment to the wound until it is completely healed. Print Language: Palestinian Coding Level of Care Code ED Laborer Cement Gun Placing for Valarie Maxwell
[2025-03-12 10:41] VITALS: BP 115/96; PULSE 64; O2SAT 97
== END 2025-03-12 10:42 | disposition home or self-care (01) ==
PROVIDERS: Emergency Provider Family Medicine; PCP Internal Medicine
DX: M79.605 Pain in left leg (principal); M25.572 Pain in left ankle and joints of left foot
CPT/HCPCS: 36415; 73610; 80053; 85025; 86140; 93971; 99284